=== PATIENT | female | born 1945 | race Caucasian/White ===

== ENCOUNTER → 2016-10-14 | Outpatient (CLI) | payer OTHER ==
[~2016-10-14] MED LIST: ACET-1138 PO; ASPEC325 PO; CLB100 PO; CLR10 PO; DLD2 PO; HYDR12.524 PO; OMEP20CA9 PO; SIMV10TA2 PO
--- NOTE | 2016-10-14 14:17 | MAMMOGRAPHY REPORT ---
BILATERAL DIGITAL SCREENING MAMMOGRAM WITH CAD: 10/14/2016 CLINICAL HISTORY: Routine screening. Patient has no complaints. TECHNIQUE: Current study was also evaluated with a Computer Aided Detection (CAD) system. Bilatera l CC and MLO views were obtained. COMPARISON: Comparison is made to exams dated: 07/30/2015 mammogram, 10/16/2012 mammogram, 01/10/2014 mammogram, 06/23/2011 mammogram, 04/30/2010 mammogram, and 04/27/2010 mammogram - [facility] enter. BREAST COMPOSITION: The tissue of both breasts is heterogeneously dense, which may obscure small ma sses. FINDINGS: No suspicious masses, calcifications, or areas of architectural distortion are noted in e ither breast. There has been no significant interval change compared to prior exams. Bilateral tori gn appearing calcifications are not significantly changed. Asymmetry in the left breast middle dept h on the cc view posterior to the nipple is stable dating back to at least the 2007 exam. IMPRESSION: ACR BI-RADS CATEGORY 2: BENIGN There is no mammographic evidence of malignancy. A 1 year screening mammogram is recommended. The p atient will receive written notification of the results. Approximately 10% of breast cancers are not detected with mammography. A negative mammographic repor t should not delay biopsy if a clinically suggestive mass is present. Rebeca Galaviz M.D. /:10/14/2016 13:53:35 Sql Data Analyst: Katt HINSON)(Reina), [facility] letter sent: Normal 1/2 BI-RADS Code: ACR BI-RADS Category 2: Benign
== END | disposition home or self-care (01) ==
LOC: C.MAMM 09:27
PROVIDERS: ATTEND Family Medicine
DX: Z12.31 Encounter for screening mammogram for malignant neoplasm of breast (principal)

== ENCOUNTER → 2017-10-05 | Day surgery (SDC) | payer OTHER ==
[2017-08-30 16:07] VITALS: Ht 165.1 cm; Wt 90.9 kg
[2017-09-05 10:05] LABS: BASO % 0.5 %; BASO ABS # 0.03 K/uL (0-0.2); EOS % 5.4 %; EOS ABS # 0.34 K/uL (0-0.5); HEMATOCRIT 38.5 % (37-47); HEMOGLOBIN 12.5 g/dL (12.0-16.0); IG# 0.01 K/uL (0.00-0.02); LYMPH % 44.5 %; LYMPH ABS # 2.81 K/uL (1.2-3.4); MEAN CELL VOLUME 97.5 fL (80-100); MEAN CORPUSCULAR HEMOGLOBIN 31.6 pg (25-34); MEAN CORPUSCULAR HGB CONC 32.5 g/dl (32-36); MEAN PLATELET VOLUME 9.4 fL (7.4-10.4); MONO % 7.9 %; NEUT % 41.5 %; NEUT ABS # 2.62 K/uL (1.4-6.5); PLATELET COUNT 292 K/uL (130-400); RED CELL DISTRIBUTION WIDTH CV 14.7 % (11.5-14.5); RED CELL DISTRIBUTION WIDTH SD 52.5 fL (36.4-46.3); WHITE BLOOD COUNT 6.31 K/uL (4.8-10.8)
[2017-09-05 10:39] LABS: CALCIUM 9.1 mg/dl (8.5-10.1); CREATININE 0.8 mg/dl (0.60-1.20); POTASSIUM 3.4 mmol/L (3.5-5.1)
[~2017-10-05] VITALS: Ht 165.1 cm; Wt 90.9 kg
[~2017-10-05] MED LIST changes: -ACET-1138 PO; -ASPEC325 PO; +ASPI81TA28 PO; +ATROPINE SULFATE 0.1 MG/ML 5ML SYR IV PRN; +BUPIVACAINE 0.5 % 5 MG/1 ML PF 10ML VIAL ONE; +BUPIVACAINE/EPINEPHRINE 0.5% MPF 1:200,000 30 ML VIAL ONE; +CEFAZOLIN 2000MG IV PUSH 10 ML IV SCH; +CEFAZOLIN SOD 1 GM VIAL ONE; +CEFAZOLIN SOD 1000MG/5 ML IV PUSH IV ONE; -CLB100 PO; +CLB200 PO; +DIPH-437 PO; -DLD2 PO; +EpHEDrine SULFATE INJ 50 MG/ML AMP IV PRN; +FENTANYL CITRATE INJ 50 MCG/1 ML 2 ML VIAL IV PRN; +FENTANYL CITRATE INJ 50 MCG/1 ML 2 ML VIAL ONE; +HYDR-5688 PO; -HYDR12.524 PO; +HYDR25TA4 PO; +HYDROCODONE/ACETAMOPHEN 5/325MG TAB PO PRN; +KETO10TA PO; +LACTATED RINGER'S 1000ML 1,000 ML IV SCH; +LIDOCAINE HCL 2% 2 ML VIAL (20MG/ML) ONE; +LIDOCAINE HCL 2% LOCAL 20 ML VIAL ONE; +MISCTAB78 PO; +MULT-859 PO; +ONDANSETRON INJ 2 MG/ML 2 ML VIAL IV PRN; +ONDANSETRON INJ 2 MG/ML 2 ML VIAL ONE; +PROPOFOL IV EMULSION 10 MG/ML 20 ML VIAL IV ONE; +SODIUM CHLORIDE 0.9% 1000ML 1,000 ML IV SCH
--- NOTE | 2017-10-05 06:56 | History & Physical Bridge - SC ---
H&P Re-Evaluation Bridge Note: I have examined the patient, reviewed the History & Physical and in the interval since the performance of the History & Physical I have noted the following changes of clinical significance: No changes noted
--- NOTE | 2017-10-05 09:13 | [facility] Post Operative Brief Note ---
Immediate Operative Summary Operative Date Oct 05, 2017. Pre-Operative Diagnosis Right Ulnar Neuropathy, Right Carpal Tunnel Syndrome Post-Operative Diagnosis Same Procedure(s) Performed Right Ulnar Nerve Transposition With Right Carpal Tunnel Release Surgeon Dr. Leo Row Boss Hoeing Surgeon(s) Keke Peraza PA-C Estimated Blood Loss 10ML Findings Right Cubital Tunnel Syndrome Right Carpal Tunnel Syndrome Specimens None Anesthesia General Complication(s) None Disposition Recovery Room / PACU
--- NOTE | 2017-10-05 09:20 | Discharge Instructions-SurgCtr ---
Discharge Instructions Date of Service Oct 05, 2017. Visit Reason for Visit: Compression Neuropathy Of Upper Limb;Pre-Op Discharge Discharge Diagnosis / Problem: right carpal tunnel syndrome and cubital tunnel syndrome Discharge Goals Goal(s): Decrease discomfort, Improve function, Therapeutic intervention Medications Restart Stopped Medication(s): Stop celebrex while taking toradol. May restart celebrex when toradol is finished Activity Recommendations Activity Limitations: per Instructions/Follow-up section Anesthesia . Post Anesthesia Instructions: If you have had General Anesthesia or IV Sedation: * Do not drive today. * Resume driving when surgeon permits. * Do not make important decisions or sign legal documents today. * Call surgeon for: 1. Temperature elevations greater than 101 degrees F. 2. Uncontrollable pain. 3. Excessive bleeding. 4. Persistent nausea and vomiting. 5. Medication intolerance (nausea, vomiting or rash). * For nausea and vomiting use only clear liquids such as: tea, soda, bouillon until nausea subsides, then gradually increase diet as tolerated. * If you have any concerns or questions, call your surgeon's office. If physician is unavailable and it is an emergency, call 911 or go to the nearest emergency room. . Instructions / Follow-Up Instructions / Follow-Up MEDICATIONS: * Resume previous medications unless instructed otherwise by your surgeon. * Always take pain medication on a full stomach or with food to avoid upset stomach. * Do not drink alcohol or drive while taking narcotics. * Tylenol may be taken if narcotic not needed. SPECIAL CARE INSTRUCTIONS: __ None _x_ Keep extremity elevated and iced x 48 hours; apply ice 20-30 minutes 8-10 times/day. May remove at night. _x_ Sling __24 hrs/day __ Remove at night __ Shoulder Immobilizer __ 24 hrs/day __ Remove at night x__ Dressing _x_ Maintain until seen in office, may shower with plastic over site __ Remove dressings in 24-48 hours and then may shower __ Cover incisions with band-aids after showering __ Do not remove steri-strips Call physician if chills or temperature rises above 102 degrees or pain unrelieved by prescribed pain medications at . . follow up in 2 weeks Diet Recommendations Home Diet: resume previous diet Procedures Procedures Performed: Right Ulnar Nerve Transposition With Right Carpal Tunnel Release Pending Studies Studies pending at discharge: no Medical Emergencies . Who to Call and When: Medical Emergencies: If at any time you feel your situation is an emergency, please call 911 immediately. . Non-Emergent Contact Non-Emergency issues call your: Surgeon . . "Provider Documentation" section prepared by Gregory Peraza. .
--- NOTE | 2017-10-05 09:40 | OPERATIVE REPORT ---
DATE OF OPERATION: 10/05/2017 SURGEON: Steve Leo MD. SVP OPERATIONS: KEILY Nickerson PREOPERATIVE DIAGNOSES: 1. Right cubital tunnel syndrome. 2. Right carpal tunnel syndrome. POSTOPERATIVE DIAGNOSES: Same. PROCEDURE PERFORMED: 1. Right subcutaneous ulnar nerve transposition. 2. Right carpal tunnel release. COMPLICATIONS: None. ESTIMATED BLOOD LOSS: 10 mL. ANESTHESIA: General. SPECIMENS: None. OPERATIVE INDICATIONS: The patient is a 72-year-old female who has been bothered by several months of right hand pain, discomfort and numbness and decreased function. This all dates back to when she was catching some type of a fish on a trip. She was treated conservatively without adequate relief. Her symptoms continued to gradually progress. She had nerve studies which suggested cubital tunnel syndrome as well as some carpal tunnel syndrome. The patient failed conservative treatment and elected to proceed with surgical treatment. Most of her symptoms are ulnar nerve related. Based on her nerve studies and difficulty localizing this, we did the ulnar nerve transposition and also proceed with her carpal tunnel release knowing that would also increase the dimensions of Guyon's canal was well. OPERATIVE PROCEDURE: The patient taken to the operating room, identified and placed on the operating table in supine position. All contact areas were appropriately padded. IV antibiotics were provided by anesthesia team. A right arm tourniquet was placed. The right upper extremity was then prepped and draped in the usual sterile fashion. The right arm was elevated and exsanguinated with Esmarch and tourniquet was placed at 250 mmHg. Attention was first drawn to the carpal tunnel release. A 2.5 cm incision was made in the palm just ulnar to the palmaris longus tendon. Blunt dissection was carried through the subcutaneous tissues down to the level of the palmar fascia. The palmar fascia was incised longitudinally in line with skin incision. The underlying transverse carpal ligament was identified. It was cleaned of all soft tissues. It was transected distally with use of a [place] blade knife and then bluntly spread. Attention was then drawn proximally. Blunt dissection was carried out above and below the ligament proximally. The ligament was then transected for a minimum distance of 3 cm proximal to the wrist flexion crease. The ligament was bluntly spread and found to be completely released. I then injected with about 10 mL of 0.5% Marcaine with epinephrine. The tourniquet was let down for a tourniquet time of 6 minutes. Hemostasis was assured with use of electrocautery. The wound was once again irrigated. The skin was closed with 5-0 nylon suture in a horizontal mattress fashion. Attention was then drawn to the elbow. The right arm was elevated and exsanguinated with Esmarch and tourniquet was placed at 250 mmHg. A medial approach to the elbow was then performed through a curvilinear incision centered over the cubital tunnel. Sharp dissection was carried out through the subcutaneous tissue directly down to the fascia. Full thickness flaps were elevated over the flexor pronator mass. Great care was taken to protect the medial antebrachial cutaneous nerve during the exposure. The ulnar nerve was identified proximal to the cubital tunnel. It was dissected out a minimum distance of 5 cm distally and 10 cm proximally. The intermuscular septum was resected. A fascial flap was then developed from the flexor pronator mass and hinged off the medial epicondyle. The nerve was transposed anteriorly. The fascial flap was then sewn to the subcutaneous tissues about 2 cm anterior to the medial epicondyle. The cubital tunnel fascia itself was then closed with 2-0 Vicryl suture in a [id number] fashion. I then injected locally with 20 mL of 0.5% Marcaine with epinephrine. I irrigated the wound extensively. The tourniquet was then let down for a tourniquet time 20 minutes. Hemostasis was assured with electrocautery. The wound was once again irrigated. The subcutaneous tissues were then closed with a combination of 2-0 and 3-0 Vicryl suture in a buried interrupted fashion. Skin was closed with a combination of 3-0 nylon and 3-0 Prolene suture in a horizontal mattress fashion. The arm was then cleaned, dried and a sterile dressing with Xeroform, 4 x 4s, sterile cast padding and a well-padded posterior splint and a sling were applied. The patient then brought out of general anesthesia and transferred to the recovery room in stable condition. The patient tolerated the procedure without complications. All needle and sponge counts were correct at the end of the operation. I attest to the content of the Intraoperative Record and any orders documented therein. Any exceptions are noted below. DESTINI
[2017-10-05 10:03] VITALS: TEMP 36.2
--- NOTE | 2017-10-05 10:35 | Anesthesiology Progress Note ---
Anesthesia Post Op Note Date & Time Oct 05, 2017 at 10:35 Vital Signs Pain Intensity: 5.0 Vital Signs Past 12 Hours Date Time Temp Pulse Resp B/P (MAP) Pulse Ox O2 Delivery O2 Flow Rate FiO2 10/05/17 10:03 36.2 91 18 143/86 (105) 93 Room Air 10/05/17 09:56 87 16 90 10/05/17 09:56 88 16 10/05/17 09:55 144/83 10/05/17 09:54 36.9 95 Room Air 10/05/17 09:51 88 12 10/05/17 09:51 88 12 92 10/05/17 09:50 144/84 10/05/17 09:48 90 16 95 10/05/17 09:48 91 16 10/05/17 09:45 145/87 10/05/17 09:43 91 17 10/05/17 09:43 91 17 94 10/05/17 09:40 140/87 10/05/17 09:38 92 19 97 10/05/17 09:38 93 19 10/05/17 09:37 93 23 96 10/05/17 09:37 93 23 10/05/17 09:35 147/97 10/05/17 09:32 90 17 10/05/17 09:32 91 17 100 10/05/17 09:30 138/91 10/05/17 09:27 91 16 10/05/17 09:27 91 16 100 10/05/17 09:26 147/85 10/05/17 09:25 131/115 10/05/17 09:24 90 12 100 10/05/17 09:24 91 12 10/05/17 09:20 141/86 10/05/17 09:19 92 16 99 10/05/17 09:19 92 16 10/05/17 09:15 140/83 10/05/17 09:14 99 17 10/05/17 09:14 99 17 141/78 98 10/05/17 09:14 36.7 100 16 141/78 97 Mask 8 10/05/17 06:35 36.6 88 18 132/75 (94) 95 Room Air Notes Mental Status: alert / awake / arousable, participated in evaluation Pt Amnestic to Procedure: Yes Nausea / Vomiting: adequately controlled Pain: adequately controlled Airway Patency, RR, SpO2: stable & adequate BP & HR: stable & adequate Hydration State: stable & adequate Anesthetic Complications: no major complications apparent
[2017-10-05 10:38] VITALS: BP 116/70; PULSE 88; O2SAT 95
== END | disposition home or self-care (01) ==
LOC: X.SURG 06:21
PROVIDERS: ATTEND Orthopaedic Surgery Sports Medicine
DX: G56.01 Carpal tunnel syndrome, right upper limb (principal); G56.21 Lesion of ulnar nerve, right upper limb; I10 Essential (primary) hypertension; G62.9 Polyneuropathy, unspecified; Z79.899 Other long term (current) drug therapy; Z79.82 Long term (current) use of aspirin

== ENCOUNTER → 2017-11-23 | Outpatient (CLI) | payer OTHER ==
[~2017-11-23] MED LIST changes: -ATROPINE SULFATE 0.1 MG/ML 5ML SYR IV PRN; -BUPIVACAINE 0.5 % 5 MG/1 ML PF 10ML VIAL ONE; -BUPIVACAINE/EPINEPHRINE 0.5% MPF 1:200,000 30 ML VIAL ONE; -CEFAZOLIN 2000MG IV PUSH 10 ML IV SCH; -CEFAZOLIN SOD 1 GM VIAL ONE; -CEFAZOLIN SOD 1000MG/5 ML IV PUSH IV ONE; -CLB200 PO; -DIPH-437 PO; -EpHEDrine SULFATE INJ 50 MG/ML AMP IV PRN; -FENTANYL CITRATE INJ 50 MCG/1 ML 2 ML VIAL IV PRN; -FENTANYL CITRATE INJ 50 MCG/1 ML 2 ML VIAL ONE; -HYDROCODONE/ACETAMOPHEN 5/325MG TAB PO PRN; -KETO10TA PO; -LACTATED RINGER'S 1000ML 1,000 ML IV SCH; -LIDOCAINE HCL 2% 2 ML VIAL (20MG/ML) ONE; -LIDOCAINE HCL 2% LOCAL 20 ML VIAL ONE; -ONDANSETRON INJ 2 MG/ML 2 ML VIAL IV PRN; -ONDANSETRON INJ 2 MG/ML 2 ML VIAL ONE; -PROPOFOL IV EMULSION 10 MG/ML 20 ML VIAL IV ONE; -SODIUM CHLORIDE 0.9% 1000ML 1,000 ML IV SCH
--- NOTE | 2017-11-23 15:55 | MAMMOGRAPHY REPORT ---
BILATERAL DIGITAL SCREENING MAMMOGRAM TOMOSYNTHESIS WITH CAD: 11/23/2017 CLINICAL HISTORY: Routine screening. TECHNIQUE: Breast tomosynthesis in addition to standard 2D mammography was performed. Current study was also evaluated with a Computer Aided Detection (CAD) system. COMPARISON: Comparison is made to exams dated: 10/14/2016 mammogram, 07/30/2015 mammogram, 01/10/2014 m ammogram, 10/16/2012 mammogram, 06/23/2011 mammogram, and 04/27/2010 mammogram - [facility] nter. BREAST COMPOSITION: The tissue of both breasts is heterogeneously dense, which may obscure small mas ses. FINDINGS: There is stable asymmetry in the middle one third of the left breast along the posterior n ipple line on the CC view, and mild vascular calcifications bilaterally. No suspicious mass, archite ctural distortion or cluster of microcalcifications is seen. IMPRESSION: ACR BI-RADS CATEGORY 1: NEGATIVE There is no mammographic evidence of malignancy. A 1 year screening mammogram is recommended. The pa tient will receive written notification of the results. Approximately 10% of breast cancers are not detected with mammography. A negative mammographic report should not delay biopsy if a clinically suggestive mass is present. Sravanthi Shin M.D. ay/:11/23/2017 13:19:01 Test Kitchen Home Economist: Katt SANCHEZ(Mark)(M), [facility] letter sent: Normal 1/2 BI-RADS Code: ACR BI-RADS Category 1: Negative
== END | disposition home or self-care (01) ==
LOC: C.MAMM 12:14
PROVIDERS: ATTEND Family Medicine
DX: Z12.31 Encounter for screening mammogram for malignant neoplasm of breast (principal)

== ENCOUNTER 2019-11-26 06:25 | Observation (INO) ==
--- NOTE | 2019-11-07 12:37 | PAT Medication Instructions ---
Medication Instructions Date of Service November 07, 2019 Home Medications aspirin [Aspir-81] 81 mg PO QAM calcium carbonate [Calcium 500] 1,000 mg PO QAM celecoxib [Celebrex] 200 mg PO QPM cholecalciferol (vitamin D3) [Vitamin D3] 2,000 unit PO DAILY cyanocobalamin (vitamin B-12) [Vitamin B-12] 3,000 mcg PO DAILY diphenhydramine-acetaminophen [Tylenol PM Extra Strength] 1 tab PO HS PRN glucosamine-chondroitin [Osteo Bi-Flex] 2 tab PO QAM hydrochlorothiazide 25 mg PO QAM omeprazole 20 mg PO QAM simvastatin 10 mg PO QPM ASK your surgeon for instructions celecoxib [Celebrex] 200 mg PO QPM ASK your prescriber and surgeon aspirin [Aspir-81] 81 mg PO QAM STOP taking 2 weeks before surgery (or as soon as possible if surgery is within 2 weeks) glucosamine-chondroitin [Osteo Bi-Flex] 2 tab PO QAM DO NOT take the morning of surgery calcium carbonate [Calcium 500] 1,000 mg PO QAM cholecalciferol (vitamin D3) [Vitamin D3] 2,000 unit PO DAILY cyanocobalamin (vitamin B-12) [Vitamin B-12] 3,000 mcg PO DAILY hydrochlorothiazide 25 mg PO QAM Take morning of surgery With a small sip of water, OTHERWISE NOTHING TO EAT OR DRINK AFTER MIDNIGHT: omeprazole 20 mg PO QAM Take evening before surgery diphenhydramine-acetaminophen [Tylenol PM Extra Strength] 1 tab PO HS PRN (if needed) simvastatin 10 mg PO QPM Other Notes If you have any questions please call us at [phone] or [phone] or [phone] or [phone]
--- NOTE | 2019-11-08 10:59 | Anesthesiology Consultation ---
Date of Service November 08, 2019 Assessment & Plan (1) Encounter for pre-operative examination: PATIENT GOES BY "SABRINA" Chart Review Chart Review: Acceptable Risk for Surgery and Patient seen in Pre Admission Testing Teaching & Discussion Instructed NPO after midnight before surgery, except medications with 15 cc of water. Medication instructions provided according to the PAT guidelines. History Surgery Operation Date: 11/26/19 07:30 Proposed Procedures p Right Reverse Total Shoulder Arthroplasty - Dorian Trejo, Height/Weight Height: 5 ft 5 in Weight: 86.9 kg Allergies Allergy/AdvReac Type Severity Reaction Status Date / Time adhesive AdvReac Unknown BANDAIDS->SKIN Verified 11/06/19 13:44 SORENESS morphine AdvReac Unknown sick in Verified 11/08/19 10:54 stomach, feels funny oxycodone AdvReac Unknown N&V Verified 11/06/19 13:44 Medications Home Medications Medication Instructions Recorded Confirmed Last Taken aspirin [Aspir-81] 81 mg PO QAM 11/06/19 11/06/19 Unknown calcium carbonate [Calcium 500] 1,000 mg PO QAM 11/06/19 11/06/19 Unknown celecoxib [Celebrex] 200 mg PO QPM 11/06/19 11/06/19 Unknown cholecalciferol (vitamin D3) 2,000 unit PO DAILY 11/06/19 11/06/19 Unknown [Vitamin D3] cyanocobalamin (vitamin B-12) 3,000 mcg PO DAILY 11/06/19 11/06/19 Unknown [Vitamin B-12] diphenhydramine-acetaminophen 1 tab PO HS PRN 11/06/19 11/06/19 Unknown [Tylenol PM Extra Strength] glucosamine-chondroitin [Osteo 2 tab PO QAM 11/06/19 11/06/19 Unknown Bi-Flex] hydrochlorothiazide 25 mg PO QAM 11/06/19 11/06/19 Unknown omeprazole 20 mg PO QAM 11/06/19 11/06/19 Unknown simvastatin 10 mg PO QPM 11/06/19 11/06/19 Unknown Past Medical History Medical History (Updated 11/08/19 @ 15:34 by Amandeep Espinal) Acid reflux Hyperlipidemia Osteoarthritis Tennis elbow R - INJECTION 10/29/19. SURGEON'S OFFICE AWARE. Exercise / Class Metabolic Activity II 4-5 Yardwork/Stairs/Walk up hill (Denies CP or SOB with activity/1FOS; takes care of a 2yo daily) Past Family History Family History (Updated 11/06/19 @ 13:55 by Salas Shah RN) Grandfather Family history of esophageal cancer Past Surgical History Surgical History (Updated 11/08/19 @ 10:56 by Amandeep Espinal) H/O vein stripping History of cholecystectomy History of colonoscopy History of elbow surgery R & CARPAL TUNNEL SURGERY R HAND (SAME SURGERY) History of foot surgery R (PINS) History of total left knee replacement History of total replacement of left shoulder joint History of total right hip replacement History of total right knee replacement History of tubal ligation Past Anesthesia History No Hx of Anesthesia Complications and No Family Hx of Anesthesia Complications History of PONV No Hx of PONV and No Hx of Motion Sickness Social History Smoking Status: Never smoker Do You Dip or Chew Tobacco: No Hx Alcohol Use: Yes alcohol intake frequency: holidays/special occasions only Hx Substance Use: No substance use type: does not use Review of Systems Pt denies any recent chest pain, shortness of breath, palpitations, cough, fever or URI. Physical Exam Vital Signs BP: 126/77 P: 79bpm SPO2: 98% RA T: 97.6 F R: 16 ENMT Mouth: no dental restorations, no chipped teeth and no loose teeth Thyromental Distance: < 3.5 Finger Breadths (3) Mallampati Class: III Neck normal visual inspection; neck extension not limited Respiratory normal respiratory effort Auscultation: lungs clear to auscultation bilaterally Cardiovascular Rate/Rhythm: regular rate and regular rhythm Heart Sounds: + murmur (I/ systolic) Testing Laboratory Results 11/08/19 11:10 PT 10.6 Seconds (9.0-12.0) 11/08/19 11:10 INR 1.0 (0.9-1.1) 11/08/19 11:10 APTT 25.4 Seconds (21.0-31.0) 11/08/19 11:10 Blood Type A Positive 11/08/19 11:10 Antibody Screen NEGATIVE 11/08/19 11:10 Laboratory Tests 11/08/19 11:10 Sodium 138 Potassium 3.4 L Chloride 103 Carbon Dioxide 29 BUN 15 Creatinine 0.68 Glucose 95 Electrocardiogram Date: 11/08/19 Findings: + NSR @ (78) and + RBBB Compared with EKG of 09/05/2017, PVCs are no longer present. Chest X-Ray Date: 11/08/19 Findings: + NAD Hiatal hernia. Stress Test Date: 09/06/13 Type: exercise Resting EF: 55-59% Negative for ischemia. Below average exercise capacity. Normal left ventricular wall motion. No significant valvular disease.
[2019-11-08 11:50] LABS: Basophils # (auto) 0.04 K/uL (0-0.2); Basophils % (auto) 0.5 %; Eosinophils % (auto) 4.1 %; Hematocrit (blood only) 40.4 % (37-47); Hemoglobin 13.2 g/dL (12.0-16.0); Immature Granulocytes # (auto) 0.01 K/uL (0.00-0.02); Immature Granulocytes % (auto) 0.1 %; Lymphocytes # (auto) 3.09 K/uL (1.2-3.4); Lymphocytes % (auto) 42.3 %; Mean Corpuscular Hemoglobin 32.4 pg (25-34); Mean Corpuscular Hgb Conc 32.7 g/dL (32-36); Mean Corpuscular Volume 99.3 fL (80-100); Mean Platelet Volume 9.9 fL (7.4-10.4); Monocytes # (auto) 0.57 K/uL (0.11-0.59); Monocytes % (auto) 7.8 %; Neutrophils # (auto) 3.29 K/uL (1.4-6.5); Neutrophils % (auto) 45.2 %; Platelet Count 326 K/uL (130-400); RDW Coefficient of Variation 14.6 % (11.5-14.5); Red Blood Count 4.07 M/uL (4.2-5.4)
--- NOTE | 2019-11-08 11:52 | XRay Report ---
XR chest Pre-admission PA/Lat HISTORY: 74 years-old Female pat preoperative exam. No acute chest complaints COMPARISON: Chest radiographs 07/15/2016 TECHNIQUE: PA and lateral views of the chest FINDINGS: Cardiac silhouette is normal in size. Calcific plaque of the thoracic aortic arch. No pneumothorax, p leural effusion or overt pulmonary edema. Mild eventration of the right hemidiaphragm. Small to moder ate hiatal hernia. Degenerative changes of the spine and right shoulder. Left shoulder total joint ar throplasty. Surgical clips project over the upper abdomen. Postoperative changes of the right proxima l humerus. Remote upper lumbar compression deformity redemonstrated. IMPRESSION: 1. No acute process. 2. Hiatal hernia. ACT 112: Negative or not required by law. The above report was generated using voice recognition software. It may contain grammatical, syntax o r spelling errors. Electronically signed by: Evelio Neil M.D. 11/08/2019 11:51 AM
[2019-11-08 12:05] LABS: Partial Thromboplastin Ratio 0.9; Partial Thromboplastin Time 25.4 Seconds (21.0-31.0); Prothrombin Time 10.6 Seconds (9.0-12.0)
--- NOTE | 2019-11-08 14:40 | Electrocardiogram Report ---
Test Reason : Blood Pressure : / mmHG Vent. Rate : 078 BPM Atrial Rate : 078 BPM P-R Int : 178 ms QRS Dur : 148 ms QT Int : 438 ms P-R-T Axes : 067 106 024 degrees QTc Int : 499 ms Normal sinus rhythm Right bundle branch block Abnormal ECG When compared with ECG of 05-SEP-2017 09:52, Premature ventricular complexes are no longer Present Confirmed by Saleem Guerrier ([id number]) on 11/08/2019 2:40:45 PM Referred By: Dorian Trejo Confirmed By:Saleem Guerrier
--- NOTE | 2019-11-22 09:22 | History & Physical Report ---
Date of Service November 22, 2019 Assessment & Plan (1) Osteoarthritis, shoulder: We will proceed with a right reverse shoulder arthroplasty. Postoperatively she will be placed in a sling and kept overnight in the hospital for postoperative medical management. She plans to use [facility] and [place] upon discharge. Present on Admission?: Yes History of Present Illness Chief Complaint: Primary osteoarthritis of the right shoulder Primary Care Provider: Chris Garcia MD Deena is a pleasant 74-year-old female who has been dealing with chronic increasing right shoulder pain. She has a history of a rotator cuff repair done in the past. Unfortunately she is gone on to develop advanced arthritis of the right shoulder. She has constant crepitus and weakness of the right shoulder. I did a left total shoulder arthroplasty on her in 2012 and she did well with that. Unfortunately she is having a lot of right shoulder pain. Due to the rotator cuff repair she had in the past as well as the wear of her glenoid, she has elected to proceed with a reverse right shoulder arthroplasty. Allergies Allergy/AdvReac Type Severity Reaction Status Date / Time adhesive AdvReac Unknown BANDAIDS->SKIN Verified 11/06/19 13:44 SORENESS morphine AdvReac Unknown sick in Verified 11/08/19 10:54 stomach, feels funny oxycodone AdvReac Unknown N&V Verified 11/06/19 13:44 Home Medications Home Medications Medication Instructions Recorded Confirmed Type aspirin [Aspir-81] 81 mg PO QAM 11/06/19 11/06/19 History calcium carbonate [Calcium 500] 1,000 mg PO QAM 11/06/19 11/06/19 History celecoxib [Celebrex] 200 mg PO QPM 11/06/19 11/06/19 History cholecalciferol (vitamin D3) 2,000 unit PO DAILY 11/06/19 11/06/19 History [Vitamin D3] cyanocobalamin (vitamin B-12) 3,000 mcg PO DAILY 11/06/19 11/06/19 History [Vitamin B-12] diphenhydramine-acetaminophen 1 tab PO HS PRN 11/06/19 11/06/19 History [Tylenol PM Extra Strength] glucosamine-chondroitin [Osteo 2 tab PO QAM 11/06/19 11/06/19 History Bi-Flex] hydrochlorothiazide 25 mg PO QAM 11/06/19 11/06/19 History omeprazole 20 mg PO QAM 11/06/19 11/06/19 History simvastatin 10 mg PO QPM 11/06/19 11/06/19 History Past Med/Surg History Medical History Acid reflux Hyperlipidemia Osteoarthritis Tennis elbow R - INJECTION 10/29/19. SURGEON'S OFFICE AWARE. Surgical History H/O vein stripping History of cholecystectomy History of colonoscopy History of elbow surgery R & CARPAL TUNNEL SURGERY R HAND (SAME SURGERY) History of foot surgery R (PINS) History of total left knee replacement History of total replacement of left shoulder joint History of total right hip replacement History of total right knee replacement History of tubal ligation Family History Grandfather Family history of esophageal cancer Social History Preferred Language: Yi Communication Ability: Effective First Mate Required: No Beliefs That Will Affect Care: None Current Living Situation: Spouse Feels Safe at Home: Yes Smoking Status: Never smoker Hx Alcohol Use: Yes Hx Substance Use: No Review of Systems All systems reviewed & are unremarkable except as noted in HPI & below Physical Exam Constitutional: WD/WN, vitals as above Eyes: PERRL, conjunctivae normal, anicteric sclerae ENMT: external ear and nose normal, oropharynx normal Neck: trachea midline, no thyromegaly Respiratory: normal respiratory effort Cardiovascular: RRR, no murmur, no edema Gastrointestinal (Abdomen): normal bowel sounds, soft, nontender, no hepatosplenomegaly Musculoskeletal: Physical examination of the right shoulder reveals decreased range of motion and crepitis throughout. There is good strength with full can testing and external rotation. There is tenderness palpation along the anterior glenohumeral joint line. The right upper extremity is neurovascularly intact. Psychiatric: A+Ox3, euthymic affect Results & Data Diagnostic Findings Radiographs of the right shoulder show osteoarthritis of the glenohumeral joint. There is joint space narrowing, osteophyte formation, and [id number] articulation.
[~2019-11-26 06:25] MED LIST changes: +ACETAMINOPHEN 500 MG TAB PO SCH; -ASPI81TA28 PO; +CEFAZOLIN 2000MG 2,000 MG/15 ML SYR IV SCH; -CLR10 PO; +FAMOTIDINE 20 MG TAB PO SCH; +GABAPENTIN 300 MG CAP PO SCH; -HYDR-5688 PO; -HYDR25TA4 PO; +LR 15ML/HR IV SCH; +LR 60ML/HR IV SCH; -MISCTAB78 PO; -MULT-859 PO; -OMEP20CA9 PO; +ROPIVACAINE 0.5% HCL/PF 150 MG, BUPIVACAINE 0.5% MPF 30 ML, EPINEPHrine 30MG/30ML (OR U... INSTIL SCH; -SIMV10TA2 PO; +TRANEXAMIC ACID 1,000 MG **IV Intra-op IV SCH; +TRANEXAMIC ACID 1,000 MG **IV Pre-op IV SCH; +dexAMETHasone 4 MG TAB PO SCH
--- NOTE | 2019-11-26 06:45 | History & Physical Bridge Note ---
Date of Service November 26, 2019 History & Physical Bridge Note I have examined the patient, reviewed the History & Physical and in the interval since the performance of the History & Physical I have noted the following changes of clinical significance: no changes noted
[2019-11-26] MEDS ORDERED: BUPIVACAINE 0.5 % 5 MG/1 ML PF 10ML VIAL ONE (07:11)
[2019-11-26] MEDS ORDERED: ONDANSETRON INJ 2 MG/ML 2 ML VIAL ONE (07:44)
[2019-11-26] MEDS ORDERED: LIDOCAINE HCL 2% 2 ML VIAL/AMP(20MG/ML) INFIL ONE (07:44)
[2019-11-26] MEDS ORDERED: DEXAMETHASONE SOD INJ 4 MG/ML VIAL ONE (07:44)
[2019-11-26] MEDS ORDERED: ROCURONIUM BROMIDE 10 MG/ML 5 ML VIAL ONE (07:45)
[2019-11-26] MEDS ORDERED: MIDAZOLAM HCL 1 MG/ML 2ML VIAL ONE (07:45)
[2019-11-26] MEDS ORDERED: PROPOFOL IV EMULSION 10 MG/ML 20 ML VIAL IV ONE (07:45)
[2019-11-26] MEDS ORDERED: fentaNYL citrate 100 MCG/2 ML VIAL ONE (07:45)
[2019-11-26] MEDS ORDERED: fentaNYL citrate 100 MCG/2 ML VIAL IV PRN (07:54)
[2019-11-26] MEDS ORDERED: ATROPINE SULFATE 0.1 MG/ML 10ML SYR IV PRN (07:54)
[2019-11-26] MEDS ORDERED: ONDANSETRON INJ 2 MG/ML 2 ML VIAL IV PRN ×2 (07:54→12:24)
[2019-11-26] MEDS ORDERED: ePHEDrine sulfate 50 MG/ML AMP IV PRN (07:54)
[2019-11-26] MEDS ORDERED: ROPIVACAINE 0.5% HCL/PF 150 MG, BUPIVACAINE 0.5% MPF 30 ML, EPINEPHrine 30MG/30ML (OR U... INSTIL SCH (10:00)
[2019-11-26] MEDS ORDERED: GLYCOPYRROLATE 0.2 MG/ML VIAL ONE (10:15)
[2019-11-26] MEDS ORDERED: NEOSTIGMINE METHYLSULFATE 5 MG/5 ML SYR ONE (10:15)
--- NOTE | 2019-11-26 10:58 | Operative Report ---
PG Post Operative Report Pre & Post Diagnosis Operation Date: 11/26/19 09:05 Pre-Op Diagnosis: RIGHT SHOULDER rotator cuff arthropathy with tendinopathy of the long head of the biceps tendon Post-Op Diagnosis: RIGHT SHOULDER rotator cuff arthropathy with tendinopathy of the long head of the biceps tendon I identified the patient and participated in the time-out.: Yes Procedure Operation Date: 11/26/19 09:05 Actual Procedures p Right Reverse Total Shoulder Arthroplasty with open biceps tenodesis as a separate procedure (modifier 59) (Right) - Dorian Trejo DO Surgeon Dorian Trejo DO Lead Security Officer Dorian Lui PAC Estimated Blood Loss 200 Findings Consistent with Post-Op Diagnosis Specimens Right humeral head Complications none Disposition Disposition: Recovery Room Indications Deena is a pleasant 74-year-old female who presented my office with chronic increasing right shoulder pain. X-rays and clinical examination have been diagnostic for cuff arthropathy of the right shoulder. She has a history of her previous right rotator cuff repair through a large open incision. After failing conservative treatment, she elected proceed with a right reverse shoulder arthroplasty. Description of Procedure A CPT code modifier 59: The long head of the biceps tendon was enlarged and inflamed consistent with tendinopathy. A tenodesis was opted. This was a separate and distinct portion of the procedure. For these reasons, a CPT code modifier 59 will be added to this case. A CPT code modifier 22: The patient had a previous open rotator cuff repair. T here was extensive scar tissue from that previous procedure. Gaffney implants had to be removed as well. The case took about 50% longer than a standard reverse shoulder replacement because of the previous procedure. Implants used: I used a [employer]omet Comprehensive reverse total shoulder arthroplasty system with a size 14 press fit mini humeral stem, a +3 offset humeral tray and a standard humeral bearing, a 25 mm mini baseplate with a 6.5 mm central screw and superior and inferior locking screws, and a size 36 mm eccentric glenosphere. Deena arrived at [facility] for the above procedure. She was seen in the preoperative holding area and the operative extremity was identified and signed. She was given a preoperative antibiotic, TXA, and an interscalene nerve block. She was taken back to the operating room, laid on table in supine position, and put under general anesthesia. She was then put into the beachchair position. The shoulder was then prepped and draped in sterile fashion. A timeout was done and the patient and the operative extremity was properly identified. A deltopectoral approach was used. Dissection was taken down through the fascia and the deltoid was retracted laterally and the conjoined tendon was retracted medially. The anterior shoulder was exposed. The biceps groove was opened up and the biceps tendon was examined extensively. The biceps tendon demonstrated enlargement and inflammatory changes consistent with longstanding inflammation in the context of osteoarthritis and cuff arthropathy. The long head of the biceps tendon was then tenodesed to the upper border of the pectoralis major. This was a separate and distinct portion of the procedure. The subscapularis was then directly released off the lesser tuberosity with a peel technique. The inferior capsule was released and the humeral head was dislocated. A canal finding reamer was sent down the center of the humeral canal. Sequential reaming up to a size 14 reamer was done. Off that reamer, a proximal humeral resection guide was placed. The proximal humerus was resected at 135 of inclination and 25 of retroversion. Osteophytes were then removed and the glenoid was exposed. Time was spent doing a complete capsular and labral release. The glenoid guide was then placed in the inferior aspect of the glenoid. A 3.2 mm Steinmann pin was then placed into the glenoid vault at 10 of inclination. The glenoid baseplate was then reamed. The final size 25 mm mini baseplate was then impacted in the place. A 6.5 mm central screw was then placed followed by superior and inferior locking screws. A 36 mm eccentric glenosphere was then impacted into place. Surrounding soft tissues were then injected with 100 cc an orthopedic pain control cocktail. The proximal humerus was then exposed. Sequential broaching of the humerus up to a size 14 broach was done. Off that broach a +3 offset humeral tray was trialed. The shoulder was then reduced, brought through a full range of motion, and felt to be stable. The shoulder was then dislocated and the broach was removed. The final size 14 mini press-fit humeral stem was then impacted into place. A standard humeral bearing was then snapped onto a +3 offset humeral tray. The humeral tray was then impacted onto the humeral stem. The shoulder was once again reduced, brought through a full range of motion, and felt to be stable. The subscapularis was then tenodesed back to the lesser tuberosity with transosseous FiberWire sutures and side to side sutures with the arm in 45 of external rotation. A dilute betadyne lavage was then done for 3 minutes. The joint was then irrigated with normal saline solution. Hemostasis was obtained. The interval was closed with 2-0 Vicryl suture. The skin was then closed with 2-0 Vicryl and declan. A soft dressing was placed and the arm was rested in a regular arm sling. She was then extubated and transferred to a hospital bed. She taken to the postanesthesia care unit in stable condition. She tolerated the procedure well. Dorian Lui PA-C, was present for the entire procedure. He was critical for patient positioning, prepping, draping, retraction exposure, wound closure and application of sterile dressing. I attest to the content of the Intraoperative Record and any orders documented therein. Any exceptions are noted below.
--- NOTE | 2019-11-26 12:08 | Anesthesiology Progress Note ---
Date of Service November 26, 2019 Anesthesia Post Procedure Vital Signs Vital Signs: Temp Pulse Pulse Resp BP Pulse Ox 11/26/19 11:55 70 19 145/76 H 100 11/26/19 11:45 97.3 F L 79 16 139/79 100 11/26/19 11:35 71 16 140/76 100 11/26/19 11:25 75 16 141/81 H 100 11/26/19 11:17 97.0 F L 81 18 146/80 H 97 11/26/19 09:30 97.3 F L 82 16 152/86 H 99 11/26/19 09:25 97.2 F L 75 16 147/78 H 99 11/26/19 09:15 80 16 148/78 H 99 11/26/19 09:04 86 16 144/84 H 99 11/26/19 06:44 97.9 F 96 H 18 149/78 H 97 Pain Intensity Right Shoulder: Pain Intensity: 0 Transfer of Care Handoff Completed per policy Notes Mental Status: alert / awake / arousable and participated in evaluation Patient Amnestic to Procedure: Yes Nausea / Vomiting: adequately controlled Pain: adequately controlled Airway Patency, RR, SpO2: stable & adequate BP & HR: stable & adequate Hydration State: stable & adequate Anesthetic Complications: no major complications apparent and Pt Satisfied with anesthetic care
[2019-11-26] MEDS ORDERED: MAGNESIUM HYDROXIDE SUSP 30 ML UDC PO PRN (12:24)
[2019-11-26] MEDS ORDERED: bisacodyL 10 MG SUPP PR PRN (12:24)
[2019-11-26] MEDS ORDERED: NALOXONE HCL 0.4 MG/1 ML VIAL/CARP IV PRN (12:24)
[2019-11-26] MEDS ORDERED: METOCLOPRAMIDE HCL INJ 5 MG/ML 2 ML VIAL IV PRN (12:24)
[2019-11-26] MEDS ORDERED: TRAMADOL HCL 50 MG TABLET PO PRN (12:24)
[2019-11-26] MEDS ORDERED: HYDROmorphone INJ 0.5 MG/0.5 ML SYR IV PRN (12:24)
--- NOTE | 2019-11-26 12:33 | XRay Report ---
XR shoulder RT min 2V routine HISTORY: 74 years-old Female Post shoulder surgery right shoulder total joint arthroplasty COMPARISON: Right shoulder radiographs 10/29/2019 TECHNIQUE: 3 views of the right shoulder FINDINGS: Reverse right shoulder total joint arthroplasty demonstrates satisfactory alignment. Expected postsur gical soft tissue swelling and deep tissue air. Overlying skin declan are noted. Findings are sugges tive of prior distal clavicular resection. Right lung base opacities suggest atelectasis. IMPRESSION: Expected postoperative changes related to reverse right shoulder total joint arthroplasty . ACT 112: Negative or not required by law. The above report was generated using voice recognition software. It may contain grammatical, syntax o r spelling errors. Electronically signed by: Evelio Neil M.D. 11/26/2019 12:31 PM
[2019-11-26] MEDS: SODIUM CHLORIDE 0.9% 1000ML 1,000 ML IV SCH ×2 (12:58→22:16)
[2019-11-26] MEDS: ACETAMINOPHEN 500 MG TAB PO SCH ×2 (12:58→20:50)
[2019-11-26] MEDS: KETOROLAC TROMETHAMINE 15 MG/ML VIAL IV SCH ×2 (12:58→17:42)
[2019-11-26] MEDS ORDERED: NURSING DECISION MEDICATION ONE (15:33)
[2019-11-26] MEDS ORDERED: COUGH DROP (SUGAR FREE) LOZ 24 LOZ/1 BOX BUCCAL PRN (15:38)
[2019-11-26] MEDS: CEFAZOLIN 2000MG 2,000 MG/15 ML SYR IV SCH (20:43)
[2019-11-26] MEDS: DOCUSATE SODIUM 100 MG CAP PO SCH (20:43)
[2019-11-26] MEDS ORDERED: SIMVASTATIN 10 MG TAB PO SCH (21:00)
[2019-11-26] MEDS ORDERED: SENNA 8.6 MG TAB PO SCH (21:00)
[2019-11-27] MEDS: KETOROLAC TROMETHAMINE 15 MG/ML VIAL IV SCH ×2 (00:14→04:46)
[2019-11-27] MEDS: ACETAMINOPHEN 500 MG TAB PO SCH (04:46)
[2019-11-27] MEDS: CEFAZOLIN 2000MG 2,000 MG/15 ML SYR IV SCH (04:46)
--- NOTE | 2019-11-27 05:39 | Orthopedic Progress Note ---
Date of Service November 27, 2019 Assessment & Plan (1) History of reverse total replacement of right shoulder joint: Overall she is doing very well. She not having much pain in the right shoulder. She will be seen by physical therapy this morning for ambulation and range of motion exercises. She can be discharged home later today. She will follow-up with orthopedics in 2 weeks. Present on Admission?: Yes Margoth Shaffer was seen and examined at bedside this morning. Overall she is doing very well. She is not having much pain in the right shoulder. She has no complaints. Physical Exam Musculoskeletal: On physical examination of the right shoulder, the dressing is clean and dry. She is wearing her sling as instructed. Her radial, median, and ulnar nerves are checked and intact at the wrist. She still has a little numbness in her thumb. Her axillary nerve was not checked yet. Results & Data ([facility]) Vital Signs (Past 12 Hours) Vital Signs Temp Pulse Resp BP Pulse Ox 11/27/19 03:21 36.6 C 74 18 111/70 93 11/26/19 23:05 36.7 C 87 18 106/64 96 11/26/19 19:31 36.6 C 78 16 114/69 93 Diagnostic Findings Postoperative x-rays of the right shoulder show the prosthesis to be in anatomic alignment without any evidence of fracture, dislocation, or loosening. PG Care Time/CCT Total # of Minutes Spent Total Time Spent with Patient: Total time spent is greater than 50% in coordination of care (as documented) at patient's floor/unit and/or counseling patient: Coding Level of Care Code None Diagnoses History of reverse total replacement of right shoulder joint Z98.890
--- NOTE | 2019-11-27 05:40 | Discharge Summary ---
Date of Service November 27, 2019 Admission HPI Per Admitting Provider Deena is a pleasant 74-year-old female who has been dealing with chronic increasing right shoulder pain. She has a history of a rotator cuff repair done in the past. Unfortunately she is gone on to develop advanced arthritis of the right shoulder. She has constant crepitus and weakness of the right shoulder. I did a left total shoulder arthroplasty on her in 2012 and she did well with that. Unfortunately she is having a lot of right shoulder pain. Due to the rotator cuff repair she had in the past as well as the wear of her glenoid, she has elected to proceed with a reverse right shoulder arthroplasty. Principal Diagnosis Right reverse shoulder arthroplasty Discharge Data Allergies Allergy/AdvReac Type Severity Reaction Status Date / Time adhesive AdvReac Unknown BANDAIDS->SKIN Verified 11/26/19 06:37 SORENESS morphine AdvReac Unknown sick in Verified 11/26/19 06:37 stomach, feels funny oxycodone AdvReac Unknown N&V Verified 11/26/19 06:37 Consultations 11/26/19 12:24 Consult Case Management - Discharge Planning Routine Procedures Performed Operation Date: 11/26/19 09:05 Actual Procedures p Right Reverse Total Shoulder Arthroplasty(Right) - Dorian Trejo DO Ordered Studies 11/26/19 05:00 US - OR guided needle placemen Urgent Hospital Course (1) History of reverse total replacement of right shoulder joint: On November 26, 2019 Deena arrived at [facility] and underwent a right reverse shoulder arthroplasty without complication. She had a general anesthetic and a right interscalene nerve block. Postoperatively she was placed in an arm sling and transferred to the general orthopedic floors. Her hospital course was uneventful. On postop day #1 her H&H was stable and her pain was well controlled. She was able to participate well with physical therapy doing ambulation and range of motion exercises. She was then discharged to home. She will follow-up with orthopedics in 2 weeks. Total Time Total Time Spent Total Time Spent (In Minutes): 20 Discharge Plan Discharge Items Patient Disposition: Home - Home Health Services Reason For Visit: RIGHT SHOULDER DEGERATIVE JOINT DISEASE Discharge Diagnosis: Right reverse shoulder replacement Activity: As commented below Non-emergency contact: Surgeon Call non-emergency contact if: your wound has increased redness and your wound has increased drainage Follow-up/Referrals: Chris Garcia MD [Primary Care Provider] - Diet: Regular Addtl Attending Provider Instructions: Activity and Therapy Recommendations: * If you are using [facility] then therapy will be provided at your home until they feel you have accomplished all of your goals. * If you are using [facility] then Physical Therapy will be provided until they feel you are ready to start Outpatient Physical Therapy. * If you are not using home therapy then Outpatient Physical Therapy should start about 3-5 days from your day of surgery. Therapy will last about 8-12 weeks * Wear your sling for 3 weeks, unless otherwise instructed. You may remove your sling to shower and to dress, but otherwise, you should be in your sling at all times, including while sleeping * The shoulder replacement is very stable and you can use your hand while in the sling * You were shown a series of exercises in the hospital. Do these exercises daily including the exercises you were shown in physical therapy. Medications: * Narcotic You will likely be sent home from the hospital with a prescription for the narcotic pain medication that worked best throughout your stay. * Other medications may be prescribed for specific circumstances. If you have any questions, please call the office at . * Resume previous home medications unless otherwise instructed Dressing Care: Leave the plastic dressing in place for 5 days. After 5 days you may remove the plastic dressing. If the incision is not draining then you may leave the declan open to air. If there is a little bit of drainage or if the declan are getting stuck on your clothing then cover the incision with a dry dressing. The declan will be removed at your 2 week follow-up appointment. Showering: You may shower with the plastic dressing in place. Let the shower spray hit the other shoulder. You can pat the plastic dry. If the dressing becomes wet underneath the plastic then simply remove the dressing. Keep the incision dry until you are 5 days out from the day of surgery. At that time you can shower with the declan exposed. Let the soapy shower water run over the declan and pat them dry. Do not scrub or soak the incision. Things To Watch For: * Drainage from the incision site that occurs more than one week after your surgery. * Increased redness at the incision site. * Fever above 102 degrees Fahrenheit. * Unusual chest pain or shortness of breath. * Call [facility] at with any of the above problems Follow-Up Visit: Follow-up with Dr. Trejo 2-3 weeks after your day of surgery. An appointment was probably scheduled when you signed-up for surgery in the office. If you have any questions call Office Instructions: More detailed instructions as well as Frequently Asked Questions were provided in a folder by our office when you signed-up for surgery. Please review these instructions when you get home. If you have any further questions or concerns, please feel free to call the office at [phone] Pending Studies at Discharge: No Stand-Alone Forms: My [facility] SCL, Smoking Cessation Medications and DC Order Prescriptions: New hydrocodone-acetaminophen [Manson] 5-325 mg tablet 1 tab PO Q6H PRN (Reason: pain) Qty: 30 RF: 0 Continued celecoxib [Celebrex] 200 mg Capsule 200 mg PO QPM RF: 0 simvastatin 10 mg Tablet 10 mg PO QPM RF: 0 cyanocobalamin (vitamin B-12) [Vitamin B-12] 1,000 mcg Tablet 3,000 mcg PO DAILY RF: 0 aspirin [Aspir-81] 81 mg Tablet,Delayed Release (Dr/Ec) 81 mg PO QAM RF: 0 calcium carbonate [Calcium 500] 500 mg calcium (1,250 mg) Tablet 1,000 mg PO QAM RF: 0 omeprazole 20 mg Capsule,Delayed Release(Dr/Ec) 20 mg PO QAM RF: 0 hydrochlorothiazide 25 mg Tablet 25 mg PO QAM RF: 0 diphenhydramine-acetaminophen [Tylenol PM Extra Strength] 25-500 mg Tablet 1 tab PO HS PRN (Reason: Sleep) RF: 0 glucosamine-chondroitin [Osteo Bi-Flex] 250-200 mg Tablet 2 tab PO QAM RF: 0 cholecalciferol (vitamin D3) [Vitamin D3] 2,000 unit Tablet 2,000 unit PO DAILY RF: 0 potassium chloride [K-Tab] 20 mEq Tablet Extended Release 20 meq PO DAILY RF: 0 Discharge Orders: Discharge Order (Routine); Ordered 11/27/19 Ordered By: Dorian Trejo Admission Data Admit Date/Time: 11/26/19 11:17 Attending Provider: Dorian Trejo Admit Provider: Dorian Trejo Primary Care Provider: Chris Garcia Coding Level of Care Code D/C Day Management <30 mins Diagnoses History of reverse total replacement of right shoulder joint Z98.890
[2019-11-27 06:09] LABS: Basophils # (auto) 0.01 K/uL (0-0.2); Basophils % (auto) 0.1 %; Eosinophils # (auto) 0.02 K/uL (0-0.5); Eosinophils % (auto) 0.2 %; Hematocrit (blood only) 32.8 % (37-47); Hemoglobin 10.8 g/dL (12.0-16.0); Immature Granulocytes # (auto) 0.02 K/uL (0.00-0.02); Immature Granulocytes % (auto) 0.2 %; Lymphocytes # (auto) 1.91 K/uL (1.2-3.4); Lymphocytes % (auto) 18.9 %; Mean Corpuscular Hgb Conc 32.9 g/dL (32-36); Mean Corpuscular Volume 100.3 fL (80-100); Mean Platelet Volume 9.3 fL (7.4-10.4); Monocytes # (auto) 0.86 K/uL (0.11-0.59); Monocytes % (auto) 8.5 %; Neutrophils # (auto) 7.26 K/uL (1.4-6.5); Neutrophils % (auto) 72.1 %; Platelet Count 276 K/uL (130-400); RDW Coefficient of Variation 15.2 % (11.5-14.5); RDW Standard Deviation 55.9 fL (36.4-46.3); Red Blood Count 3.27 M/uL (4.2-5.4); White Blood Count 10.08 K/uL (4.8-10.8)
[2019-11-27 06:37] LABS: BUN Creatinine Ratio 31.9 (10-20); Calcium 8.8 mg/dl (8.5-10.1); Creatinine Clr Calc Pharmacy 78.5 ml/min; Est GFR (African American) 99.2; Est GFR (Non-African American) 85.6; Potassium 3.7 mmol/L (3.5-5.1)
[2019-11-27] MEDS ORDERED: dexAMETHasone 4 MG TAB PO SCH (08:00)
--- NOTE | 2019-11-27 08:02 | Anesthesiology Progress Note ---
Date of Service November 27, 2019 Anesthesia Post Procedure Vital Signs Vital Signs: Temp Pulse Pulse Pulse Resp BP Pulse Ox 11/27/19 07:06 36.8 C 80 18 125/72 95 11/27/19 03:21 36.6 C 74 18 111/70 93 11/26/19 23:05 36.7 C 87 18 106/64 96 11/26/19 19:31 36.6 C 78 16 114/69 93 11/26/19 15:14 36.6 C 76 16 114/72 96 11/26/19 14:15 80 18 107/67 95 11/26/19 13:15 77 16 124/77 97 11/26/19 12:43 71 16 128/68 96 11/26/19 12:15 36.5 C 83 14 134/84 97 11/26/19 11:55 70 19 145/76 H 100 11/26/19 11:45 36.3 C L 79 16 139/79 100 11/26/19 11:35 71 16 140/76 100 11/26/19 11:25 75 16 141/81 H 100 11/26/19 11:17 36.1 C L 81 18 146/80 H 97 11/26/19 09:30 36.3 C L 82 16 152/86 H 99 11/26/19 09:25 36.2 C L 75 16 147/78 H 99 11/26/19 09:15 80 16 148/78 H 99 11/26/19 09:04 86 16 144/84 H 99 Pain Intensity Right Shoulder: Pain Intensity: 0 Notes Mental Status: alert / awake / arousable and participated in evaluation Patient Amnestic to Procedure: Yes Nausea / Vomiting: adequately controlled Pain: adequately controlled Airway Patency, RR, SpO2: stable & adequate BP & HR: stable & adequate Hydration State: stable & adequate Anesthetic Complications: no major complications apparent and Pt Satisfied with anesthetic care
[2019-11-27] MEDS: DOCUSATE SODIUM 100 MG CAP PO SCH (08:41)
[2019-11-27] MEDS ORDERED: hydroCHLOROthiazide 25 MG TAB PO SCH (09:00)
[2019-11-27] MEDS ORDERED: PANTOprazole 40 MG TAB PO SCH (09:00)
[2019-11-27] MEDS ORDERED: POTASSIUM CHLORIDE 20 MEQ TABCR PO SCH (09:00)
[2019-11-27] MEDS ORDERED: ASPIRIN 81 MG ECTAB PO SCH (09:00)
[2019-11-27] MEDS ORDERED: MULTIVITAMIN TAB PO SCH (09:00)
== END 2019-11-27 10:19 | disposition home health service (06) ==
LOC: 3E 06:25 → ASU 06:25

== ENCOUNTER 2024-05-31 11:06 | Inpatient (IN) ==
--- NOTE | 2024-05-31 11:53 | Emergency Department Note ---
Impression & Plan Bacteremia due to Gram-negative bacteria ED Provider Note NAME: VERN AYALA AGE: 79 SEX: F : 1945 ARRIVES VIA: Walk-In INFORMANT: Patient, ED PROVIDER(S): Guilherme Alarcon MD CHIEF COMPLAINT: Positive blood culture HPI: This is a 79-year-old female presenting with positive blood culture. Patient was seen here yesterday after falls, weakness and was diagnosed with a UTI. Patient was given cefdinir and discharged. She does have blood cultures sent yesterday. This morning one of the blood cultures became positive for E. coli. Patient was advised to come to the hospital by pharmacist, Ger. At this time patient does feel worse than yesterday. She states she feels further weakness, confusion and not feeling herself. She notes she feels that she is going to fall again. She has not fallen since discharge. ROS: See above HPI for pertinent positives & negatives. A total of 10 systems reviewed and were otherwise negative. PAST MEDICAL HISTORY: See Below PAST SURGICAL HISTORY: See Below FAMILY HISTORY: See Below SOCIAL HISTORY: See Below HOME MEDICATIONS: See Below ALLERGIES: See Below VITALS: See Below PHYSICAL EXAMINATION: General: resting comfortably in no acute distress Head: Normocephalic and atraumatic Eyes: Normal inspection, extraocular muscles intact, right periorbital ecchymosis Ear, nose, throat: Normal external exam Neck: Normal range of motion Respiratory: lungs clear to auscultation bilaterally Cardiovascular: Regular rate/rhythm, no murmur GI: soft, nontender, no guarding or rebound Extremities: nontender, moves all extremities Neuro: The patient awake and alert, appropriately conversive, no focal deficits, symmetric faces Skin: Warm, dry, and intact MEDICAL DECISION MAKING: This is a an 79-year-old female presenting for positive blood cultures. Patient was diagnosed with UTI, now has E. coli bacteremia. Will admit for further workup after giving ceftriaxone. Blood work reveals downtrending leukocytosis, stable anemia. Hypokalemic, will replete orally with 40 mg p.o. potassium -Given IV ceftriaxone -Patient admitted to hospitalist service under Dr. Doty Differential diagnosis: Sepsis, bacteremia, UTI ER treatment provided: See below Independent History obtained from: Diagnostics interpreted by me: ECG: None Cardiac Monitoring: An order was placed for continuous cardiac monitoring. The monitor shows a rate of 92 with sinus rhythm. Laboratory studies: As stated above and show below. Imaging studies: See below. Past Med/Surg History Problem List Bacteremia due to Gram-negative bacteria (Acute) Generalized weakness Hypokalemia Bacteremia due to Gram-negative bacteria CHI (closed head injury) (Acute) Acute UTI (Acute) Neuroforaminal stenosis of lumbosacral spine Lumbar stenosis with neurogenic claudication Disc degeneration, lumbar Low back pain with bilateral sciatica Degenerative spondylolisthesis Degenerative scoliosis in adult patient Scoliosis of lumbar spine Encounter for pre-operative examination Anemia DJD (degenerative joint disease) of hip (Acute 03/08/14) Lateral epicondylitis Tennis elbow R - INJECTION 10/29/19. SURGEON'S OFFICE AWARE. Encounter for pre-operative examination History of reverse total replacement of right shoulder joint (~11/2019) Medical History HTN (hypertension) Acid reflux Osteoarthritis Hyperlipidemia Surgical History History of left cataract surgery H/O vein stripping History of colonoscopy History of elbow surgery R & CARPAL TUNNEL SURGERY R HAND (SAME SURGERY) History of foot surgery R (PINS) History of tubal ligation History of cholecystectomy History of total right knee replacement History of total left knee replacement History of total replacement of left shoulder joint History of total right hip replacement Family History Grandfather Family history of esophageal cancer Sister No problems noted. Daughter Family history of diabetes mellitus Social History Smoking Status: Never smoker Second Hand Exposure: No; Do You Dip or Chew Tobacco: No; Tobacco Cessation Education Requested by Patient: No Hx Alcohol Use: No Hx Substance Use: No Preferred Language: Venezuelan Communication Ability: Effective Patient Consumer Marketer Required: Yes Beliefs That Will Affect Care: None Current Living Situation: Spouse Feels Safe at Home: Yes Safety Concerns: Feels Safe At This Time Assistive Devices: Glasses Allergies Allergies Allergy/AdvReac Type Severity Reaction Status Date / Time adhesive AdvReac Unknown BANDAIDS->SKIN Verified 02/01/24 10:13 SORENESS morphine AdvReac Unknown sick in Verified 02/01/24 10:13 stomach, feels funny Home Meds Home Medications Medication Instructions Recorded Confirmed aspirin 81 mg tablet,delayed 81 mg PO QAM 11/06/19 05/31/24 release (Aspir-) calcium carbonate (Calcium 500) 1,000 mg PO QAM 11/06/19 05/31/24 celecoxib 200 mg capsule (Celebrex) 200 mg PO QPM 11/06/19 05/31/24 cholecalciferol (vitamin D3) 50 2,000 unit PO DAILY 11/06/19 05/31/24 mcg (2,000 unit) tablet (Vitamin D3) cyanocobalamin (vitamin B-12) 3,000 mcg PO DAILY 11/06/19 05/31/24 1,000 mcg tablet (Vitamin B-12) diphenhydramine 25 1 tab PO HS PRN Sleep 11/06/19 05/31/24 mg-acetaminophen 500 mg tablet (Tylenol PM Extra Strength) glucosamine-chondroitin 250 mg-200 2 tab PO QAM 11/06/19 05/31/24 mg tablet (Osteo Bi-Flex) hydrochlorothiazide 25 mg tablet 25 mg PO QAM 11/06/19 05/31/24 omeprazole 20 mg capsule,delayed 20 mg PO QAM 11/06/19 05/31/24 release simvastatin 10 mg tablet 10 mg PO QPM 11/06/19 05/31/24 potassium chloride 20 mEq 20 meq PO QAM 11/26/19 05/31/24 tablet,extended release (K-Tab) ascorbic acid (vitamin C) 250 mg 250 mg PO DAILY 12/12/20 05/31/24 tablet (Vitamin C) Previous Rx's Medication Instructions Recorded amoxicillin 500 mg tablet 2,000 mg (4 x 500 mg) PO ONCE #4 01/05/24 tabs gabapentin 300 mg capsule 300 mg PO TID #90 caps 02/29/24 cefdinir 300 mg capsule 300 mg PO BID 7 days #14 caps 05/30/24 Results & Data (ED) Vital Signs Vital Signs - 24 hr 05/31/24 11:13 05/31/24 13:06 Temperature 36.8 C Temperature Source Oral Pulse Rate 90 Pulse Rate [Right Finger] 88 Pulse Rhythm Regular Pulse Rhythm [Right Finger] Regular Pulse Strength Normal Pulse Strength [Right Finger] Normal Respiratory Rate 18 18 Respiratory Effort / Characteristics Non-Labored Non-Labored Spontaneous Respiratory Depth Normal Normal Respiratory Pattern Regular Regular Blood Pressure 125/80 Blood Pressure [Left Arm] 128/84 Blood Pressure Mean 95 Blood Pressure Mean [Left Arm] 98 Blood Pressure Position Sitting Blood Pressure Position [Left Arm] Sitting Pulse Oximetry 96 97 Oxygen Delivery Method Room Air Room Air Sepsis Recent Fever Within 48 Hours No Sepsis New/Unexplained Change in Mental Status No Sepsis Action Taken by Nursing No Action Required Laboratory Data 05/31/24 12:44 05/31/24 12:44 Lab Results 05/31/24 Range/Units 12:44 WBC 10.81 H (4.8-10.8) K/ul RBC 3.82 L (4.20-5.40) M/uL Hgb 11.8 L (12.0-16.0) g/dl Hct 35.8 L (37.0-47.0) % MCV 93.7 (80.0-100.0) fL MCH 30.9 (25.0-34.0) pg MCHC 33.0 (32.0-36.0) g/dL RDW Std Deviation 58.7 H (36.4-46.3) fL RDW Coeff of Alex 17.2 H (11.5-14.5) % Plt Count 329 (130-400) K/uL MPV 9.9 (9.4-12.4) fL Immature Gran % (Auto) 0.6 % Neut % (Auto) 72.7 % Lymph % (Auto) 17.2 % Sibley % (Auto) 8.2 % Eos % (Auto) 0.7 % Baso % (Auto) 0.6 % Neut # (Auto) 7.85 H (1.40-6.50) K/uL Lymph # (Auto) 1.86 (1.20-3.40) K/uL Sibley # (Auto) 0.89 H (0.11-0.59) K/uL Eos # (Auto) 0.08 (0.00-0.50) K/uL Baso # (Auto) 0.06 (0.00-0.20) K/uL Immature Gran # (Auto) 0.07 (0.01-0.20) K/uL Sodium 137 (136-145) mmol/L Potassium 3.1 L (3.5-5.1) mmol/L Chloride 98 (98-107) mmol/L Carbon Dioxide 31 (21-32) mmol/L Anion Gap 8 (3-11) BUN 20 (6-23) mg/dl Creatinine 0.82 (0.6-1.2) mg/dl Est Cr Clr Drug Dosing 57.1 ml/min Est GFR ( Amer) 78.3 ml/min Est GFR (Non-Af Amer) 67.6 ml/min BUN/Creatinine Ratio 24.4 H (10-20) Glucose 107 H (70-99(Fasting)) mg/dl Calcium 9.5 (8.6-10.3) mg/dl Administered Medications Potassium Chloride/Sodium Chloride (Normal Saline W/20 Meq Kcl) 20 meq in 1,000 mls @ 80 mls/hr IV .[id number] MARCELINA Stop: 06/01/24 02:29 Last Admin: 05/31/24 17:49 Dose: 80 mls/hr Documented By: BT Discontinued Medications Ceftriaxone Sodium (Rocephin) 2,000 mg in 50 mls @ 100 mls/hr IV Q24H MARCELINA Stop: 06/02/24 11:29 Last Infusion: 05/31/24 13:42 Dose: Infused Documented By: Admin: 05/31/24 12:52 Dose: 100 mls/hr Documented By: CADEN Potassium Chloride (Potassium Chloride Crtab 20 Meq Tabcr) 40 meq PO NOW STA Stop: 05/31/24 13:28 Last Admin: 05/31/24 13:51 Dose: 40 meq Documented By: RAFFI Discharge Plan Visit Data Chief Complaint: Referred by Doctor ED Provider: Guilherme Alarcon Discharge Problem: Bacteremia due to Gram-negative bacteria Patient Disposition: Admitted As Inpatient Discharge Instructions Interventions: ED Discharge Assessment Last Done: 05/31/24 15:12
[2024-05-31] MEDS: cefTRIAXone SODIUM 2,000 MG/50 ML BAG IV SCH (12:52)
[2024-05-31 13:06] LABS: Basophils # (auto) 0.06 K/uL (0.00-0.20); Basophils % (auto) 0.6 %; Eosinophils # (auto) 0.08 K/uL (0.00-0.50); Eosinophils % (auto) 0.7 %; Hematocrit (blood only) 35.8 % (37.0-47.0); Hemoglobin 11.8 g/dl (12.0-16.0); Immature Granulocytes # (auto) 0.07 K/uL (0.01-0.20); Immature Granulocytes % (auto) 0.6 %; Lymphocytes # (auto) 1.86 K/uL (1.20-3.40); Lymphocytes % (auto) 17.2 %; Mean Corpuscular Hemoglobin 30.9 pg (25.0-34.0); Mean Corpuscular Volume 93.7 fL (80.0-100.0); Mean Platelet Volume 9.9 fL (9.4-12.4); Monocytes # (auto) 0.89 K/uL (0.11-0.59); Monocytes % (auto) 8.2 %; Neutrophils # (auto) 7.85 K/uL (1.40-6.50); Neutrophils % (auto) 72.7 %; Platelet Count 329 K/uL (130-400); RDW Coefficient of Variation 17.2 % (11.5-14.5); RDW Standard Deviation 58.7 fL (36.4-46.3); Red Blood Count 3.82 M/uL (4.20-5.40); White Blood Count 10.81 K/ul (4.8-10.8)
[2024-05-31 13:24] LABS: Calcium 9.5 mg/dl (8.6-10.3); Potassium 3.1 mmol/L (3.5-5.1)
[2024-05-31 13:29] LABS: BUN Creatinine Ratio 24.4 (10-20); Creatinine Clr Calc Pharmacy 57.1 ml/min; Est GFR (African American) 78.3 ml/min; Est GFR (Non-African American) 67.6 ml/min
[2024-05-31] MEDS: POTASSIUM CHLORIDE CRTAB 20 MEQ TABCR PO STA (13:51)
--- NOTE | 2024-05-31 14:44 | History & Physical Report ---
Date of Service May 31, 2024 Assessment & Plan (1) Bacteremia due to Gram-negative bacteria: (2) Acute UTI: (3) HTN (hypertension): (4) Hyperlipidemia: (5) Lumbar stenosis with neurogenic claudication: (6) Hypokalemia: (7) Generalized weakness: Plan This is an 79-year-old female who has a significant past medical history of HTN, HLD, venous insufficiency, lung nodule, interstitial lung disease, age-related osteoporosis, lumbar spinal stenosis who presents to ED after being referred back due to a positive blood culture. Bacteremia due to gram-negative bacteria Acute Complicated UTI admit to PCU continue IV rocephin, day #1 (she had 2 doses of oral cefnidir) upon presentation yesterday in ED on 05/30 she did meet Sepsis Criteria; however today in ED she is no longer meeting that criteria Gentle IVF x 1 L with some potassium await final urine/blood culture obtain echocardiogram in setting of murmur ID consulted Generalized weakness Recent Fall no traumatic injury other than soft tissue bruising PT/OT likely related to infection Hypokalemia replete HTN: chronic, stable, hold HCTZ in setting of infection, BP stable HLD: chronic, stable, continue statin Lumbar Spinal Stenosis: Follows Dr. Swan, has been receiving injections, continue gabapentin ILD: following pulm, recent diagnosis, some SOB with exertion at baseline DVT ppx: SQ Lovenox DNR/DNI PCP: Dr. Garcia Dispo: admit for IV antibiotics A total of 61 minutes was spent coordinating, documenting, and providing care for this patient excluding time spent in the performance of separately billed services. This included personally viewing all current laboratories and imaging studies, medication reconciliation, outpatient chart review, and discussion with specialists. Pt was seen and examined in collaboration with Dr. Doty, please see addendum History of Present Illness Chief Complaint: Referred back to ED 2/2 positive blood cultures. Primary Care Provider: Chris Garcia MD This is an 79-year-old female who has a significant past medical history of HTN, HLD, venous insufficiency, lung nodule, interstitial lung disease, age-related osteoporosis, lumbar spinal stenosis who presents to ED after being referred back due to a positive blood culture. Patient was seen and examined in the ED yesterday after being brought in via EMS secondary to sustaining a fall and being too weak to get up. Her urinalysis was significant for infection and she was discharged home on a course of oral cefdinir. She took 2 doses of this. She received a call today that her blood culture came back positive and she was referred back to the ED. She states that she feels more weak today but denies any further falls. She is felt feverish, chilled and sweats. She does report having dysuria approximately a week ago, "but I did not think anything of it." She reports that she is currently being worked up by pulmonology for, "inflammation in her lungs." She denies any chest pain, shortness breath at rest, cough, hemoptysis, nausea, vomiting, abdominal pain, hematuria, melena or hematochezia. She does report chronic back pain which has been ongoing for the last several weeks. She follows with [facility] orthopedic spine and has also been receiving spinal injections. In ED patient was hemodynamically stable today. She was afebrile and she did not meet sepsis criteria. Her potassium was mildly low at 3.1 otherwise CBC and BMP unremarkable. Her urine culture is growing Escherichia coli with sensitivities still pending. Her blood culture is positive for gram-negative bacilli with PCR detecting E. coli and Enterobacter. she received a dose of IV Rocephin and her potassium was repleted in the ED. Allergies Allergy/AdvReac Type Severity Reaction Status Date / Time adhesive AdvReac Unknown BANDAIDS->SKIN Verified 02/01/24 10:13 SORENESS morphine AdvReac Unknown sick in Verified 02/01/24 10:13 stomach, feels funny Home Medications Medication Instructions Recorded Confirmed Type aspirin 81 mg tablet,delayed 81 mg PO QAM 11/06/19 05/31/24 History release (Aspir-) calcium carbonate (Calcium 500) 1,000 mg PO QAM 11/06/19 05/31/24 History celecoxib 200 mg capsule (Celebrex) 200 mg PO QPM 11/06/19 05/31/24 History cholecalciferol (vitamin D3) 50 2,000 unit PO DAILY 11/06/19 05/31/24 History mcg (2,000 unit) tablet (Vitamin D3) cyanocobalamin (vitamin B-12) 3,000 mcg PO DAILY 11/06/19 05/31/24 History 1,000 mcg tablet (Vitamin B-12) diphenhydramine 25 1 tab PO HS PRN Sleep 11/06/19 05/31/24 History mg-acetaminophen 500 mg tablet (Tylenol PM Extra Strength) glucosamine-chondroitin 250 mg-200 2 tab PO QAM 11/06/19 05/31/24 History mg tablet (Osteo Bi-Flex) hydrochlorothiazide 25 mg tablet 25 mg PO QAM 11/06/19 05/31/24 History omeprazole 20 mg capsule,delayed 20 mg PO QAM 11/06/19 05/31/24 History release simvastatin 10 mg tablet 10 mg PO QPM 11/06/19 05/31/24 History potassium chloride 20 mEq 20 meq PO QAM 11/26/19 05/31/24 History tablet,extended release (K-Tab) ascorbic acid (vitamin C) 250 mg 250 mg PO DAILY 12/12/20 05/31/24 History tablet (Vitamin C) amoxicillin 500 mg tablet 2,000 mg (4 x 500 mg) PO ONCE #4 01/05/24 05/31/24 Rx tabs gabapentin 300 mg capsule 300 mg PO TID #90 caps 02/29/24 05/31/24 Rx cefdinir 300 mg capsule 300 mg PO BID 7 days #14 caps 05/30/24 05/31/24 Rx Past Med/Surg History Problem List Generalized weakness Hypokalemia Bacteremia due to Gram-negative bacteria CHI (closed head injury) (Acute) Acute UTI (Acute) Neuroforaminal stenosis of lumbosacral spine Lumbar stenosis with neurogenic claudication Disc degeneration, lumbar Low back pain with bilateral sciatica Degenerative spondylolisthesis Degenerative scoliosis in adult patient Scoliosis of lumbar spine Encounter for pre-operative examination Anemia DJD (degenerative joint disease) of hip (Acute 03/08/14) Lateral epicondylitis Tennis elbow R - INJECTION 10/29/19. SURGEON'S OFFICE AWARE. Encounter for pre-operative examination History of reverse total replacement of right shoulder joint (~11/2019) Medical History HTN (hypertension) Acid reflux Osteoarthritis Hyperlipidemia Surgical History History of left cataract surgery H/O vein stripping History of colonoscopy History of elbow surgery R & CARPAL TUNNEL SURGERY R HAND (SAME SURGERY) History of foot surgery R (PINS) History of tubal ligation History of cholecystectomy History of total right knee replacement History of total left knee replacement History of total replacement of left shoulder joint History of total right hip replacement Family History Grandfather Family history of esophageal cancer Sister No problems noted. Daughter Family history of diabetes mellitus Social History Smoking Status: Never smoker Second Hand Exposure: No; Do You Dip or Chew Tobacco: No; Tobacco Cessation Education Requested by Patient: No Hx Alcohol Use: No Hx Substance Use: No Preferred Language: Dutch Communication Ability: Effective Community Development Manager Required: Yes Beliefs That Will Affect Care: None Current Living Situation: Spouse Feels Safe at Home: Yes Safety Concerns: Feels Safe At This Time Assistive Devices: Glasses Review of Systems Review of Systems: All systems reviewed & are unremarkable except as noted in HPI & below Physical Exam Physical Exam: Constitutional: WD/WN, vitals as above, NAD, sitting up in bed, pleasant, conversing easily Head: Normocephalic, Atraumatic Eyes: PERRL, conjunctivae normal, anicteric sclerae ENMT: external ear and nose normal, oropharynx normal Neck: trachea midline, no thyromegaly normal visual inspection Respiratory: normal respiratory effort, lungs clear to auscultation, no wheeze, rales, rhonchi. Normal insp/exp effort, no accessory muscle use Cardiovascular: RRR, 2/6 OPHELIA , no edema but larger lower extremities Vessels: no JVD or carotid bruit Chest: normal inspection of chest Abdomen: normal bowel sounds, soft, nontender, no hepatosplenomegaly Musculoskeletal: no cyanosis or clubbing, AROM x 4 Skin: no rashes, warm and dry normal turgor Neurologic: PERRL, EOMI, accommodation nl, no face palsy, no dysarthria CN's II-XI intact bilaterally and moves all extremities Psychiatric: A+Ox3, euthymic affect Lymphatic: no cervical or axillary lymphadenopathy : deferred Results & Data Results & Data Vital Signs (Past 12 Hours) Vital Signs Temp Pulse Resp BP Pulse Ox O2 Del Method 05/31/24 11:13 36.8 C 90 18 125/80 96 Room Air Laboratory Results I have independently reviewed and interpreted patient's admitting labs including CBC, CMP,mag 05/30 UA c and S, blood culture Medications Administered Medication List Ceftriaxone Sodium (Rocephin) 2,000 mg in 50 mls @ 100 mls/hr IV Q24H MARCELINA Stop: 06/02/24 11:29 Last Infusion: 05/31/24 13:42 Dose: Infused Documented By: Admin: 05/31/24 12:52 Dose: 100 mls/hr Documented By: MATTHEWK Discontinued Medications Potassium Chloride (Potassium Chloride Crtab 20 Meq Tabcr) 40 meq PO NOW STA Stop: 05/31/24 13:28 Last Admin: 05/31/24 13:51 Dose: 40 meq Documented By: RAFFI ECG Additional Comments: I have independently reviewed and interpreted patient's admitting EKG which revealed: 103 ventricular rate, ST PVC, RBBB Code Status & VTE Plan Code Status DNR/DNI VTE Prophylaxis Plan VTE Prophylaxis will be ordered: Yes Supervising Physician Co-Signing Physician Notes Patient is an 79-year-old female with history of hypertension, hyperlipidemia, interstitial lung disease and other medical problems presents after being referred for positive blood culture. Patient was evaluated in ED yesterday after sustaining a fall due to generalized weakness and was found to have UTI and was discharged on cefdinir. Patient states that her dysuria improved after taking the antibiotic. She currently denies any chest pain, dyspnea, abdominal pain, hematuria. Please review HPI for complete details of presentation. I personally reviewed blood work and imaging studies. Lactate and procalcitonin within normal limits. Imaging studies showed no acute fractures. Urine culture growing E. coli. Blood culture growing gram-negative bacilli. Physical Exam: Vitals signs as noted above General Appearance:Moderately built and nourished, no apparent distress elderly, Head: normocephalic, Atraumatic Eyes: normal inspection, EOMI Neck: supple, Trachea midline Respiratory/Chest: Normal breath sounds, CTA, No accessory muscle use Cardiovascular: S1, S2, +murmur Abdomen/GI:Soft, Non tender, Bowel sounds present Extremities/Musculoskeletal:normal inspection, no edema Neurologic/Psych:AAOX3, grossly no focal neurological deficits Skin: normal color, warm Complicated UTI Gram-negative bacteremia Agree with IV Rocephin, gentle IV fluids Follow-up cultures Titrate antibiotics as able Hypokalemia Replete electrolytes as needed Monitor I personally interviewed and examined at bedside. Patient's care is coordinated with, Nataliia Nolan PA-C. I have reviewed the advanced practitioner's documentation, and I agree with plan of care. Please refer to the documentation above for details of patient's presentation and for discussion of other issues. I spent a total [id number] coordinating, documenting, and providing care for this patient excluding time spent in the performance of separately billed services.
[2024-05-31] MEDS ORDERED: FAMOTIDINE 20 MG TAB PO PRN (16:38)
[2024-05-31] MEDS ORDERED: POLYETHYLENE (MIRALAX) 17 GM PACK PO PRN (16:38)
[2024-05-31] MEDS ORDERED: ONDANSETRON INJ 2 MG/ML 2 ML VIAL IV PRN (16:38)
[2024-05-31] MEDS: NSS + 20MEQ KCL 20 MEQ/1,000 ML BAG IV SCH (17:49)
[2024-05-31] MEDS: SIMVASTATIN 10 MG TAB PO SCH (20:08)
[2024-05-31] MEDS: POTASSIUM CHLORIDE CRTAB 20 MEQ TABCR PO ONE (20:08)
[2024-05-31] MEDS: GABAPENTIN 300 MG CAP PO SCH (20:09)
[2024-05-31] MEDS: CeleBREX 200 MG CAP PO SCH (20:10)
[2024-05-31] MEDS: ENOXAPARIN INJ 40 MG/0.4 ML SYR SQ SCH (22:42)
[2024-06-01 06:10] LABS: Basophils # (auto) 0.06 K/uL (0.00-0.20); Basophils % (auto) 0.9 %; Eosinophils # (auto) 0.25 K/uL (0.00-0.50); Eosinophils % (auto) 3.7 %; Hematocrit (blood only) 29.5 % (37.0-47.0); Hemoglobin 9.9 g/dl (12.0-16.0); Immature Granulocytes # (auto) 0.03 K/uL (0.01-0.20); Immature Granulocytes % (auto) 0.4 %; Lymphocytes # (auto) 1.16 K/uL (1.20-3.40); Lymphocytes % (auto) 17.4 %; Mean Corpuscular Hemoglobin 30.7 pg (25.0-34.0); Mean Corpuscular Hgb Conc 33.6 g/dL (32.0-36.0); Mean Corpuscular Volume 91.3 fL (80.0-100.0); Mean Platelet Volume 9.9 fL (9.4-12.4); Monocytes # (auto) 0.75 K/uL (0.11-0.59); Monocytes % (auto) 11.2 %; Neutrophils # (auto) 4.43 K/uL (1.40-6.50); Neutrophils % (auto) 66.4 %; Platelet Count 284 K/uL (130-400); RDW Coefficient of Variation 16.3 % (11.5-14.5); RDW Standard Deviation 55.6 fL (36.4-46.3); Red Blood Count 3.23 M/uL (4.20-5.40); White Blood Count 6.68 K/ul (4.8-10.8)
[2024-06-01 06:32] LABS: Albumin Globulin Ratio 0.9 (0.9-2); Albumin Level 3.2 gm/dl (3.4-5.0); BUN Creatinine Ratio 26.5 (10-20); Bilirubin,Total 0.3 mg/dl (0.2-1.0); Calcium 8.6 mg/dl (8.6-10.3); Creatinine Clr Calc Pharmacy 69.1 ml/min; Est GFR (African American) 95.8 ml/min; Est GFR (Non-African American) 82.6 ml/min; Globulin 3.4 gm/dl (2.5-4.0); Magnesium 1.7 mg/dl (1.7-2.4); Potassium 3.7 mmol/L (3.5-5.1); Total Protein 6.6 gm/dl (6.0-8.3)
[2024-06-01 07:17] LABS: Estimated Average Glucose 123 mg/dl; Hemoglobin A1C 5.9 % (4.5-5.6)
[2024-06-01] MEDS: PANTOprazole 40 MG TAB PO SCH (08:52)
[2024-06-01] MEDS: ACETAMINOPHEN 325 MG TAB PO PRN (08:52)
[2024-06-01] MEDS: CHOLECALCIFEROL 25 MCG (1000 UNITS) TAB PO SCH (08:53)
[2024-06-01] MEDS: ADVANCED PROBIOTIC 625 MG CAPSULE PO SCH (08:53)
[2024-06-01] MEDS: ASPIRIN 81 MG ECTAB PO SCH (08:53)
[2024-06-01] MEDS: ASCORBIC ACID 500 MG TAB PO SCH (08:54)
[2024-06-01] MEDS: CALCIUM CARBONATE 1250MG TAB PO SCH (08:54)
--- NOTE | 2024-06-01 08:54 | Electrocardiogram Report ---
Test Reason : Blood Pressure : */* mmHG Vent. Rate : 94 BPM Atrial Rate : 94 BPM P-R Int : 168 ms QRS Dur : 144 ms QT Int : 384 ms P-R-T Axes : 53 -37 -3 degrees QTcB Int : 480 ms Poor data quality, interpretation may be adversely affected Normal sinus rhythm Left axis deviation Right bundle branch block Possible Lateral infarct , age undetermined Abnormal ECG When compared with ECG of 30-May-2024 17:36, Premature ventricular complexes are no longer Present Confirmed by Roni Alonzo ([id number]) on 06/01/2024 8:54:05 AM Referred By: REFERRED SELF Confirmed By: Roni Alonzo
[2024-06-01] MEDS: cefTRIAXone SODIUM 2,000 MG/50 ML BAG IV SCH (12:00)
--- NOTE | 2024-06-01 12:14 | Infectious Disease Consult ---
Date of Service June 01, 2024 Telehealth Information I performed this visit using a real-time telehealth connection between my location and the patients location ([facility]). After connecting through interactive tele-video, patient was identified by name and date of and/or wristband check.Patient (or authorized healthcare health and safety representative) was informed that this was a telemedicine visit and it was being conducted confidentially over secure lines. My office door was closed and no one else was present in the room with me.Patient (or authorized healthcare health and safety representative) provided consent to proceed with the visit, expressed an understanding of privacy and security of the telemedicine visit, and gave permission to have a hospital health and safety representative in the room in order to assist with the visit and to conduct portions of the visit, as needed. I informed the patient (or authorized healthcare health and safety representative) that I reviewed their record and presented the opportunity for them to ask any questions regarding the visit today. The patient agreed to participate. Assessment & Plan (1) E coli bacteremia: (2) Complicated UTI (urinary tract infection): (3) Generalized weakness: Plan Since the E coli is sensitive to cefazolin, I would recommend deescalating ceftriaxone to IV cefazolin 2 g every 8 hours. Whenever she is hemodynamically stable and ready for discharge, can step-down IV cefazolin to oral Bactrim DS to complete a course of 10 days including inpatient appropriate antibiotic days. Thank you for consulting Infectious Disease. We will sign off for now. History of Present Illness History of Present Illness Ms. Jerry is a 79-year-old woman with medical history of HTN, hyperlipidemia, chronic venous insufficiency, interstitial lung disease, age-related osteoporosis and lumbar spinal stenosis who was admitted to [facility] after being called back for positive blood culture. She presented to the emergency department 1 day prior to admission after a fall and complaining of weakness. Her UA was concerning for infection; therefore, after sending for blood and urine cultures, she was sent out on cefdinir. Per patient report, even after taking 2 doses of cefdinir, she continued to have fever and chills. As her blood culture sent during her visit to the emergency department grew E coli, she was called back be admitted and treated for E coli bacteremia. Apparently, the urine culture is growing E coli as well. Id team was consulted for further recommendations and to help guide antibiotic treatment. Allergies Allergy/AdvReac Type Severity Reaction Status Date / Time adhesive AdvReac Unknown BANDAIDS->SKIN Verified 02/01/24 10:13 SORENESS morphine AdvReac Unknown sick in Verified 02/01/24 10:13 stomach, feels funny Home Medications Medication Instructions Recorded Confirmed Type aspirin 81 mg tablet,delayed 81 mg PO QAM 11/06/19 05/31/24 History release (Aspir-) calcium carbonate (Calcium 500) 1,000 mg PO QAM 11/06/19 05/31/24 History celecoxib 200 mg capsule (Celebrex) 200 mg PO QPM 11/06/19 05/31/24 History cholecalciferol (vitamin D3) 50 2,000 unit PO DAILY 11/06/19 05/31/24 History mcg (2,000 unit) tablet (Vitamin D3) cyanocobalamin (vitamin B-12) 3,000 mcg PO DAILY 11/06/19 05/31/24 History 1,000 mcg tablet (Vitamin B-12) diphenhydramine 25 1 tab PO HS PRN Sleep 11/06/19 05/31/24 History mg-acetaminophen 500 mg tablet (Tylenol PM Extra Strength) glucosamine-chondroitin 250 mg-200 2 tab PO QAM 11/06/19 05/31/24 History mg tablet (Osteo Bi-Flex) hydrochlorothiazide 25 mg tablet 25 mg PO QAM 11/06/19 05/31/24 History omeprazole 20 mg capsule,delayed 20 mg PO QAM 11/06/19 05/31/24 History release simvastatin 10 mg tablet 10 mg PO QPM 11/06/19 05/31/24 History potassium chloride 20 mEq 20 meq PO QAM 11/26/19 05/31/24 History tablet,extended release (K-Tab) ascorbic acid (vitamin C) 250 mg 250 mg PO DAILY 12/12/20 05/31/24 History tablet (Vitamin C) amoxicillin 500 mg tablet 2,000 mg (4 x 500 mg) PO ONCE #4 01/05/24 05/31/24 Rx tabs gabapentin 300 mg capsule 300 mg PO TID #90 caps 02/29/24 05/31/24 Rx cefdinir 300 mg capsule 300 mg PO BID 7 days #14 caps 05/30/24 05/31/24 Rx Patient History Medical History HTN (hypertension) Acid reflux Osteoarthritis Hyperlipidemia Surgical History History of left cataract surgery H/O vein stripping History of colonoscopy History of elbow surgery R & CARPAL TUNNEL SURGERY R HAND (SAME SURGERY) History of foot surgery R (PINS) History of tubal ligation History of cholecystectomy History of total right knee replacement History of total left knee replacement History of total replacement of left shoulder joint History of total right hip replacement Family History Grandfather Family history of esophageal cancer Sister No problems noted. 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 Physical Exam Couldn't be performed as he visit was conducted via telemed Results & Data Vital Signs (Past 12 Hours) Vital Signs Temp Pulse Resp BP Pulse Ox O2 Del Method 06/01/24 11:32 36.8 C 78 18 125/78 96 Room Air 06/01/24 07:37 37.0 C 78 18 129/74 95 Room Air 06/01/24 02:59 37.0 C 79 16 125/76 97 Room Air Laboratory Results Microbiology: 05/30: 1 of 2 bottles of blood culture growing Gram-negative bacilli (identified as E coli via PCR) 05/30: Urine culture growing Escherichia coli
--- NOTE | 2024-06-01 12:46 | Hospitalist Progress Note ---
Date of Service June 01, 2024 Assessment & Plan (1) E coli bacteremia: (2) Complicated UTI (urinary tract infection): (3) HTN (hypertension): (4) Lumbar stenosis with neurogenic claudication: (5) Hypokalemia: Plan Patient with E. coli bacteremia due to complicated urinary tract infection feeling significantly improved. Sepsis has resolved. Await final identification and sensitivities of blood cultures Continue IV Rocephin Anticipate patient will be able to be transition to oral antibiotics to complete a 10 to 14-day course for gram-negative bacteremia in the next 1 to 2 days. Family at bedside updated the plan of care as well. Admission and Anticipated Discharge Date Admission Date: May 31, 2024 Subjective Patient states she is feeling significantly improved. Strength is returning. Family at bedside Physical Exam Physical Exam: Constitutional: Alert, nontoxic in appearance HEENT: Mucous membranes moist. Lungs: Clear to auscultation, decreased, no wheezes rales or rhonchi CV: S1-S2, regular Abdomen: Soft, nontender, nondistended Extremities: No significant edema Neuro: No focal deficits Psych: Cooperative, normal mood Results & Data Results & Data Vital Signs (Past 12 Hours) Vital Signs Temp Pulse Resp BP Pulse Ox O2 Del Method 06/01/24 11:32 36.8 C 78 18 125/78 96 Room Air 06/01/24 07:37 37.0 C 78 18 129/74 95 Room Air 06/01/24 02:59 37.0 C 79 16 125/76 97 Room Air Diagnostic Findings Reviewed imaging, laboratory and diagnostic studies. Pertinent findings as below. Reviewed blood and urine culture from 05/30/2024. Urine culture growing E. coli sensitive to Rocephin Blood culture appears to be growing same bacteria, final identification pending WBC 6.6, hemoglobin 9.9, Decreased due to fluids And sepsis
[2024-06-01] MEDS: MELATONIN 3 MG TAB PO PRN (21:56)
[2024-06-02 06:12] LABS: Hematocrit (blood only) 30.4 % (37.0-47.0); Hemoglobin 10.2 g/dl (12.0-16.0); Mean Corpuscular Hemoglobin 30.4 pg (25.0-34.0); Mean Corpuscular Hgb Conc 33.6 g/dL (32.0-36.0); Mean Corpuscular Volume 90.5 fL (80.0-100.0); Mean Platelet Volume 9.8 fL (9.4-12.4); Platelet Count 308 K/uL (130-400); RDW Coefficient of Variation 16.9 % (11.5-14.5); RDW Standard Deviation 56.7 fL (36.4-46.3); Red Blood Count 3.36 M/uL (4.20-5.40); White Blood Count 5.22 K/ul (4.8-10.8)
[2024-06-02 06:35] LABS: BUN Creatinine Ratio 26.5 (10-20); Calcium 8.8 mg/dl (8.6-10.3); Creatinine Clr Calc Pharmacy 69.1 ml/min; Est GFR (African American) 95.8 ml/min; Est GFR (Non-African American) 82.6 ml/min; Magnesium 1.7 mg/dl (1.7-2.4); Potassium 3.6 mmol/L (3.5-5.1)
[2024-06-02] MEDS: ceFAZolin 2000MG 2,000 MG/15 ML SYR IV SCH (11:50)
--- NOTE | 2024-06-02 16:03 | Hospitalist Progress Note ---
Date of Service June 02, 2024 Assessment & Plan (1) E coli bacteremia: Plan: E. coli bacteremia secondary to E. coli UTI Received intravenous Rocephin since admission changed to cefazolin following ID recommendation Patient remains free from any symptoms Will get repeat blood culture today PT and OT evaluation Likely discharge tomorrow on oral antibiotic as recommended by ID specialist (2) Complicated UTI (urinary tract infection): (3) HTN (hypertension): Plan: Blood pressure is controlled (4) Lumbar stenosis with neurogenic claudication: Plan: Denies any acute symptoms (5) Hypokalemia: Plan: Potassium has been normalized Plan Patient with E. coli bacteremia due to complicated urinary tract infection feeling significantly improved. Sepsis has resolved. Await final identification and sensitivities of blood cultures Continue IV Rocephin Anticipate patient will be able to be transition to oral antibiotics to complete a 10 to 14-day course for gram-negative bacteremia in the next 1 to 2 days. Family at bedside updated the plan of care as well. Admission and Anticipated Discharge Date Admission Date: May 31, 2024 Subjective 06/02/2024 The patient was seen and examined in medical floor She has been feeling much better Denies any urinary symptoms and does not have any fever and or chills, no nausea no vomiting Review of Systems Review of Systems: All systems reviewed and are unremarkable except as noted below Physical Exam Constitutional: well developed, well nourished and + obese; not ill appearing Eyes: PERRL, conjunctivae normal, anicteric sclerae ENMT: external ear and nose normal, oropharynx normal Neck: trachea midline, no thyromegaly Respiratory: no respiratory distress Auscultation: lungs clear to auscultation bilaterally Cardiovascular: Rate/Rhythm: regular rate and regular rhythm; not tachycardic Heart Sounds: normal S1 and normal S2; no murmur Extremities: no edema Gastrointestinal (Abdomen): Inspection/Auscultation: normal bowel sounds; abdo men not distended Percussion/Palpation: abdomen soft; abdomen nontender Musculoskeletal: No acute arthritis involving any of the joint Neurologic: normal touch/pain/proprioception and moves all extremities; no focal motor deficits Psychiatric: A+Ox3, euthymic affect Lymphatic: no cervical or axillary lymphadenopathy Results & Data Results & Data Vital Signs (Past 12 Hours) Vital Signs Temp Pulse Resp BP Pulse Ox O2 Del Method 06/02/24 15:26 36.7 C 80 16 130/75 95 Room Air 06/02/24 07:58 36.5 C 76 16 118/68 98 Room Air Laboratory Results Short CBC 06/02/24 Range/Units 05:53 WBC 5.22 (4.8-10.8) K/ul Hgb 10.2 L (12.0-16.0) g/dl Hct 30.4 L (37.0-47.0) % Plt Count 308 (130-400) K/uL BMP 06/02/24 05:53 Sodium 137 Potassium 3.6 Chloride 104 Carbon Dioxide 27 BUN 18 Creatinine 0.68 Glucose 97 Calcium 8.8 Medications Administered Current Inpatient Medications Acetaminophen (Acetaminophen 325 Mg Tab) 650 mg PO Q4H PRN PRN Reason: Pain or Fever Stop: 06/30/24 16:37 Last Admin: 06/01/24 19:24 Dose: 650 mg Ascorbic Acid (Ascorbic Acid 500 Mg Tab) 250 mg PO DAILY MARCELINA Stop: 07/01/24 08:59 Last Admin: 06/02/24 08:01 Dose: 250 mg Aspirin (Aspirin 81 Mg Ectab) 81 mg PO QAM MARCELINA Stop: 07/01/24 08:59 Last Admin: 06/02/24 08:02 Dose: 81 mg Calcium Carbonate (Calcium Carbonate 1250mg Tab) 1 tab PO QAM MARCELINA Stop: 07/01/24 08:59 Last Admin: 06/02/24 08:01 Dose: 1 tab Celecoxib (Celebrex 200 Mg Cap) 200 mg PO QPM MARCELINA Stop: 06/30/24 20:59 Last Admin: 06/01/24 20:03 Dose: 200 mg Enoxaparin Sodium (Enoxaparin Inj 40 Mg/0.4 Ml Syr) 40 mg SQ Q24H MARCELINA Stop: 06/30/24 21:59 Last Admin: 06/01/24 21:56 Dose: 40 mg Famotidine (Famotidine 20 Mg Tab) 20 mg PO DAILY PRN PRN Reason: Heartburn Stop: 06/30/24 16:37 Gabapentin (Gabapentin 300 Mg Cap) 300 mg PO TID MARCELINA Stop: 06/30/24 20:59 Last Admin: 06/02/24 13:54 Dose: 300 mg Cefazolin Sodium (Ancef 2000mg) 2,000 mg in 15 mls @ 3.75 mls/min IV Q8H MARCELINA Stop: 06/16/24 11:59 Last Admin: 06/02/24 11:50 Dose: 3.75 mls/min Lactobacillus Acidophilus (Advanced Probiotic 625 Mg Capsule) 1,250 mg PO DAILY MARCELINA Stop: 07/01/24 08:59 Last Admin: 06/02/24 08:01 Dose: 1,250 mg Melatonin (Melatonin 3 Mg Tab) 6 mg PO HS PRN PRN Reason: Sleep Stop: 06/30/24 20:59 Last Admin: 06/01/24 21:56 Dose: 6 mg Ondansetron HCl (Ondansetron Inj 2 Mg/Ml 2 Ml Vial) 4 mg IV Q6H PRN PRN Reason: Nausea Stop: 06/30/24 16:37 Pantoprazole Sodium (Pantoprazole 40 Mg Tab) 40 mg PO QAM MARCELINA Stop: 07/01/24 08:59 Last Admin: 06/02/24 08:01 Dose: 40 mg Polyethylene Glycol (Polyethylene (Miralax) 17 Gm Pack) 17 gm PO DAILY PRN PRN Reason: Constipation Stop: 06/30/24 16:37 Simvastatin (Simvastatin 10 Mg Tab) 10 mg PO QPM MARCELINA Stop: 06/30/24 20:59 Last Admin: 06/01/24 20:02 Dose: 10 mg Vitamin D (Cholecalciferol 25 Mcg (1000 Units) Tab) 50 mcg PO DAILY MARCELINA Stop: 07/01/24 08:59 Last Admin: 06/02/24 08:02 Dose: 50 mcg
[2024-06-02 20:32] VITALS: O2SAT 96
[2024-06-03 07:02] LABS: Hematocrit (blood only) 32.2 % (37.0-47.0); Hemoglobin 10.4 g/dl (12.0-16.0); Lymphocytes % (auto) 42.7 %; Mean Corpuscular Hemoglobin 30.4 pg (25.0-34.0); Mean Corpuscular Hgb Conc 32.3 g/dL (32.0-36.0); Mean Corpuscular Volume 94.2 fL (80.0-100.0); Neutrophils % (auto) 36.1 %; Platelet Count 326 K/uL (130-400); RDW Standard Deviation 59.4 fL (36.4-46.3); Red Blood Count 3.42 M/uL (4.20-5.40); White Blood Count 5.71 K/ul (4.8-10.8)
[2024-06-03 07:03] LABS: Basophils # (auto) 0.05 K/uL (0.00-0.20); Basophils % (auto) 0.9 %; Eosinophils # (auto) 0.49 K/uL (0.00-0.50); Eosinophils % (auto) 8.6 %; Immature Granulocytes # (auto) 0.03 K/uL (0.01-0.20); Immature Granulocytes % (auto) 0.5 %; Lymphocytes # (auto) 2.44 K/uL (1.20-3.40); Monocytes # (auto) 0.64 K/uL (0.11-0.59); Monocytes % (auto) 11.2 %; Neutrophils # (auto) 2.06 K/uL (1.40-6.50)
[2024-06-03 07:20] VITALS: BP 127/75; PULSE 77; RESP 16; TEMP 97.9
[2024-06-03 07:20] LABS: BUN Creatinine Ratio 29.4 (10-20); Calcium 8.8 mg/dl (8.6-10.3); Creatinine Clr Calc Pharmacy 69.4 ml/min; Est GFR (African American) 95.8 ml/min; Est GFR (Non-African American) 82.6 ml/min; Potassium 3.8 mmol/L (3.5-5.1)
--- NOTE | 2024-06-03 11:24 | Hospitalist Progress Note ---
Date of Service June 03, 2024 Assessment & Plan (1) E coli bacteremia: Plan: E. coli bacteremia secondary to E. coli UTI Received intravenous Rocephin since admission changed to cefazolin following ID recommendation Patient remains free from any symptoms Will get repeat blood culture today PT and OT evaluation Likely discharge tomorrow on oral antibiotic as recommended by ID specialist history Remains totally asymptomatic Without any fever and no chills She has been ambulating without any difficulties and will be discharged home this afternoon (2) Complicated UTI (urinary tract infection): Plan: As above Advised to drink more fluid Finish the course of antibiotic with Bactrim DS 1 tablet twice daily (3) HTN (hypertension): Plan: Blood pressure is controlled (4) Lumbar stenosis with neurogenic claudication: Plan: Denies any acute symptoms (5) Hypokalemia: Plan: Potassium has been normalized Plan Patient with E. coli bacteremia due to complicated urinary tract infection feeling significantly improved. Sepsis has resolved. Await final identification and sensitivities of blood cultures Continue IV Rocephin Anticipate patient will be able to be transition to oral antibiotics to complete a 10 to 14-day course for gram-negative bacteremia in the next 1 to 2 days. Family at bedside updated the plan of care as well. Admission and Anticipated Discharge Date Admission Date: May 31, 2024 Subjective 06/02/2024 The patient was seen and examined in medical floor She has been feeling much better Denies any urinary symptoms and does not have any fever and or chills, no nausea no vomiting 06/03/2024 Patient was seen and examined in medical floor in presence of the She has been stable without any acute symptoms No fever and no chills, no nausea no vomiting and no problem with urination She has been ambulating in the room and in the hallway without any difficulties She will be discharged this afternoon Review of Systems Review of Systems: All systems reviewed and are unremarkable except as noted below Physical Exam Constitutional: well developed, well nourished and + obese; not ill appearing Eyes: PERRL, conjunctivae normal, anicteric sclerae ENMT: external ear and nose normal, oropharynx normal Neck: trachea midline, no thyromegaly Respiratory: no respiratory distress Auscultation: lungs clear to auscultation bilaterally Cardiovascular: Rate/Rhythm: regular rate and regular rhythm; not tachycardic Heart Sounds: normal S1 and normal S2; no murmur Extremities: no edema Gastrointestinal (Abdomen): Inspection/Auscultation: normal bowel sounds; abdomen not distended Percussion/Palpation: abdomen soft; abdomen nontender Neurologic: normal touch/pain/proprioception and moves all extremities; no focal motor deficits Psychiatric: A+Ox3, euthymic affect Lymphatic: no cervical or axillary lymphadenopathy Results & Data Results & Data Vital Signs (Past 12 Hours) Vital Signs Temp Pulse Resp BP Pulse Ox O2 Del Method 06/03/24 07:19 36.6 C 77 16 127/75 96 Room Air Laboratory Results Short CBC 06/03/24 Range/Units 06:35 WBC 5.71 (4.8-10.8) K/ul Hgb 10.4 L (12.0-16.0) g/dl Hct 32.2 L (37.0-47.0) % Plt Count 326 (130-400) K/uL BMP 06/03/24 06:35 Sodium 138 Potassium 3.8 Chloride 104 Carbon Dioxide 29 BUN 20 Creatinine 0.68 Glucose 98 Calcium 8.8 Medications Administered Current Inpatient Medications Acetaminophen (Acetaminophen 325 Mg Tab) 650 mg PO Q4H PRN PRN Reason: Pain or Fever Stop: 06/30/24 16:37 Last Admin: 06/02/24 20:24 Dose: 650 mg Ascorbic Acid (Ascorbic Acid 500 Mg Tab) 250 mg PO DAILY [facility] Stop: 07/01/24 08:59 Last Admin: 06/03/24 08:52 Dose: 250 mg Aspirin (Aspirin 81 Mg Ectab) 81 mg PO QAM [facility] Stop: 07/01/24 08:59 Last Admin: 06/03/24 08:53 Dose: 81 mg Calcium Carbonate (Calcium Carbonate 1250mg Tab) 1 tab PO QAM MARCELINA Stop: 07/01/24 08:59 Last Admin: 06/03/24 08:53 Dose: 1 tab Celecoxib (Celebrex 200 Mg Cap) 200 mg PO QPM MARCELINA Stop: 06/30/24 20:59 Last Admin: 06/02/24 20:23 Dose: 200 mg Enoxaparin Sodium (Enoxaparin Inj 40 Mg/0.4 Ml Syr) 40 mg SQ Q24H MARCELINA Stop: 06/30/24 21:59 Last Admin: 06/02/24 21:43 Dose: 40 mg Famotidine (Famotidine 20 Mg Tab) 20 mg PO DAILY PRN PRN Reason: Heartburn Stop: 06/30/24 16:37 Gabapentin (Gabapentin 300 Mg Cap) 300 mg PO TID MARCELINA Stop: 06/30/24 20:59 Last Admin: 06/03/24 08:51 Dose: 300 mg Lactobacillus Acidophilus (Advanced Probiotic 625 Mg Capsule) 1,250 mg PO DAILY MARCELINA Stop: 07/01/24 08:59 Last Admin: 06/03/24 08:54 Dose: 1,250 mg Melatonin (Melatonin 3 Mg Tab) 6 mg PO HS PRN PRN Reason: Sleep Stop: 06/30/24 20:59 Last Admin: 06/02/24 21:43 Dose: 6 mg Ondansetron HCl (Ondansetron Inj 2 Mg/Ml 2 Ml Vial) 4 mg IV Q6H PRN PRN Reason: Nausea Stop: 06/30/24 16:37 Pantoprazole Sodium (Pantoprazole 40 Mg Tab) 40 mg PO QAM MARCELINA Stop: 07/01/24 08:59 Last Admin: 06/03/24 08:53 Dose: 40 mg Polyethylene Glycol (Polyethylene (Miralax) 17 Gm Pack) 17 gm PO DAILY PRN PRN Reason: Constipation Stop: 06/30/24 16:37 Simvastatin (Simvastatin 10 Mg Tab) 10 mg PO QPM MARCELINA Stop: 06/30/24 20:59 Last Admin: 06/02/24 20:22 Dose: 10 mg Trimethoprim/Sulfamethoxazole (Sulfamethoxazole/Trimethoprim Ds 800/160mg Tab) 1 tab PO NOW ONE Stop: 06/03/24 11:20 Vitamin D (Cholecalciferol 25 Mcg (1000 Units) Tab) 50 mcg PO DAILY MARCELINA Stop: 07/01/24 08:59 Last Admin: 06/03/24 08:54 Dose: 50 mcg
[2024-06-03] MEDS: SULFAMETHOXAZOLE/TRIMETHOPRIM DS 800/160MG TAB PO ONE (11:47)
--- NOTE | 2024-06-04 08:34 | Discharge Summary ---
Date of Service June 04, 2024 Admission HPI Per Admitting Provider This is an 79-year-old female who has a significant past medical history of HTN, HLD, venous insufficiency, lung nodule, interstitial lung disease, age-related osteoporosis, lumbar spinal stenosis who presents to ED after being referred back due to a positive blood culture. Patient was seen and examined in the ED yesterday after being brought in via EMS secondary to sustaining a fall and being too weak to get up. Her urinalysis was significant for infection and she was discharged home on a course of oral cefdinir. She took 2 doses of this. She received a call today that her blood culture came back positive and she was referred back to the ED. She states that she feels more weak today but denies any further falls. She is felt feverish, chilled and sweats. She does report having dysuria approximately a week ago, "but I did not think anything of it." She reports that she is currently being worked up by pulmonology for, "inflammation in her lungs." She denies any chest pain, shortness breath at r est, cough, hemoptysis, nausea, vomiting, abdominal pain, hematuria, melena or hematochezia. She does report chronic back pain which has been ongoing for the last several weeks. She follows with [facility] orthopedic spine and has also been receiving spinal injections. In ED patient was hemodynamically stable today. She was afebrile and she did not meet sepsis criteria. Her potassium was mildly low at 3.1 otherwise CBC and BMP unremarkable. Her urine culture is growing Escherichia coli with sensitivities still pending. Her blood culture is positive for gram-negative bacilli with PCR detecting E. coli and Enterobacter. she received a dose of IV Rocephin and her potassium was repleted in the ED. Admission Exam Per Admitting Provider Physical Exam: Constitutional: WD/WN, vitals as above, NAD, sitting up in bed, pleasant, conversing easily Head: Normocephalic, Atraumatic Eyes: PERRL, conjunctivae normal, anicteric sclerae ENMT: external ear and nose normal, oropharynx normal Neck: trachea midline, no thyromegaly normal visual inspection Respiratory: normal respiratory effort, lungs clear to auscultation, no wheeze, rales, rhonchi. Normal insp/exp effort, no accessory muscle use Cardiovascular: RRR, 2/6 OPHELIA , no edema but larger lower extremities Vessels: no JVD or carotid bruit Chest: normal inspection of chest Abdomen: normal bowel sounds, soft, nontender, no hepatosplenomegaly Musculoskeletal: no cyanosis or clubbing, AROM x 4 Skin: no rashes, warm and dry normal turgor Neurologic: PERRL, EOMI, accommodation nl, no face palsy, no dysarthria CN's II-XI intact bilaterally and moves all extremities Psychiatric: A+Ox3, euthymic affect Lymphatic: no cervical or axillary lymphadenopathy : deferred Principal Diagnosis E. coli UTI with E. coli bacteremia Discharge Exam Constitutional well developed, well nourished and + obese; not ill appearing Eyes PERRL, conjunctivae normal, anicteric sclerae ENMT external ear and nose normal, oropharynx normal Neck trachea midline, no thyromegaly Respiratory no respiratory distress Auscultation: lungs clear to auscultation bilaterally Cardiovascular Rate/Rhythm: regular rate and regular rhythm; not tachycardic Heart Sounds: normal S1 and normal S2; no murmur Extremities: no edema Gastrointestinal (Abdomen) Inspection/Auscultation: normal bowel sounds; abdomen not distended Percussion/Palpation: abdomen soft; abdomen nontender Neurologic normal touch/pain/proprioception and moves all extremities; no focal motor deficits Psychiatric A+Ox3, euthymic affect Lymphatic no cervical or axillary lymphadenopathy Discharge Data Allergies Allergy/AdvReac Type Severity Reaction Status Date / Time adhesive AdvReac Unknown BANDAIDS->SKIN Verified 02/01/24 10:13 SORENESS morphine AdvReac Unknown sick in Verified 02/01/24 10:13 stomach, feels funny Consultations 05/31/24 13:44 Consult Infectious Diseases Routine 05/31/24 13:52 ED Decision to Admit Stat Hospital Course (1) E coli bacteremia: E. coli bacteremia secondary to E. coli UTI Received intravenous Rocephin since admission changed to cefazolin following ID recommendation Patient remains free from any symptoms Will get repeat blood culture today PT and OT evaluation Likely discharge tomorrow on oral antibiotic as recommended by ID specialist history Remains totally asymptomatic Without any fever and no chills She has been ambulating without any difficulties and will be discharged home this afternoon (2) Complicated UTI (urinary tract infection): As above Advised to drink more fluid Finish the course of antibiotic with Bactrim DS 1 tablet twice daily (3) HTN (hypertension): Blood pressure is controlled (4) Lumbar stenosis with neurogenic claudication: Denies any acute symptoms (5) Hypokalemia: Potassium has been normalized Plan Patient with E. coli bacteremia due to complicated urinary tract infection feeling significantly improved. Sepsis has resolved. Await final identification and sensitivities of blood cultures Continue IV Rocephin Anticipate patient will be able to be transition to oral antibiotics to complete a 10 to 14-day course for gram-negative bacteremia in the next 1 to 2 days. Family at bedside updated the plan of care as well. Total Time Total Time Spent Total Time Spent (In Minutes): 35 minutes Discharge Plan Discharge Items Patient Disposition: Home - Self-Care Reason For Visit: BACTEREMIA Discharge Diagnosis: E. coli UTI with E. coli bacteremia Condition on Discharge: Fair Activity: Resume your previous activity Non-emergency contact: Primary Care Provider Call non-emergency contact if: you have any medication questions and your symptoms worsen Follow-up/Referrals: Chris Garcia MD [Primary Care Provider] - (Your doctor's office will give you a call on Tuesday with an appointment within 7 days) Diet: Regular Addtl Attending Provider Instructions: Please take precautions to avoid falls Continue Bactrim from tomorrow morning to finish the course Drink more fluid You can try some probiotics [id number] Please keep appointments with your healthcare provider Pending Studies at Discharge: No Stand-Alone Forms: My [employer], Smoking Cessation Medications and DC Order Prescriptions: New Advanced Probiotic 625 mg (10 billion cell) Capsule 1 cap PO DAILY Qty: 30 0RF sulfamethoxazole-trimethoprim [Bactrim DS] 800-160 mg tablet 1 tab PO BID Qty: 13 0RF Continued amoxicillin 500 mg tablet 2,000 mg PO ONCE Qty: 4 3RF Rx Instructions: 4 tabs 1 hour prior to procedure gabapentin 300 mg capsule 300 mg PO TID Qty: 90 3RF celecoxib [Celebrex] 200 mg Capsule 200 mg PO QPM simvastatin 10 mg Tablet 10 mg PO QPM cyanocobalamin (vitamin B-12) [Vitamin B-12] 1,000 mcg Tablet 3,000 mcg PO DAILY aspirin [Aspir-81] 81 mg Tablet,Delayed Release (Dr/Ec) 81 mg PO QAM calcium carbonate [Calcium 500] 500 mg calcium (1,250 mg) Tablet 1,000 mg PO QAM omeprazole 20 mg Capsule,Delayed Release(Dr/Ec) 20 mg PO QAM hydrochlorothiazide 25 mg Tablet 25 mg PO QAM diphenhydramine-acetaminophen [Tylenol PM Extra Strength] 25-500 mg Tablet 1 tab PO HS PRN (Reason: Sleep) glucosamine-chondroitin [Osteo Bi-Flex] 250-200 mg Tablet 2 tab PO QAM cholecalciferol (vitamin D3) [Vitamin D3] 2,000 unit Tablet 2,000 unit PO DAILY potassium chloride [K-Tab] 20 mEq Tablet Extended Release 20 meq PO QAM ascorbic acid (vitamin C) [Vitamin C] 250 mg Tablet 250 mg PO DAILY Discontinued cefdinir 300 mg capsule 300 mg PO BID 7 Days Qty: 14 0RF Discharge Orders: Discharge Order (Routine); Ordered 06/03/24 Ordered By: Machelle Huff Admission Data Admit Date/Time: 05/31/24 13:44 Attending Provider: Machelle Huff Admit Provider: Estiven Doty Primary Care Provider: Chris Garcia Other Providers: Ranjit Klein Other Interventions: Discharge Summary Assessment (RN) Last Done: 06/03/24 12:18
== END 2024-06-03 12:55 | disposition home or self-care (01) | DRG 872 ==
LOC: ED 11:06 → SUATTDRO 13:44 → 2S 13:44 → 3N 06-01 16:30

== ENCOUNTER 2024-10-09 10:26 | Inpatient (IN) ==
--- NOTE | 2024-10-09 11:02 | Emergency Department Note ---
Impression & Plan Pulmonary embolism ADMIT ED Provider Note HPI: History obtained from patient. The patient is a 79-year-old female who presents the emergency department with chief complaint shortness of breath. Patient states that she has had progressive shortness of breath since last evening prior to going to bed. Patient denies any recent fever/cough. Patient denies any chest pain. On arrival here to the ED the patient is noted to be tachycardic at 120 and hypoxic at 85 on room air, she was placed on nonrebreather mask with good improvement prior to my evaluation. Patient is afebrile on arrival, blood pressure stable at 129/83. ROS: - Per HPI Differential Diagnosis: Acute CHF exacerbation, COPD exacerbation, acute coronary syndrome, pulmonary embolism, pneumonia, pleural effusion, pulmonary edema, amongst other potential pathologies. *Outpatient medications and allergy history reviewed. PE: General: Alert HEENT: Normocephalic, trachea midline Eyes: Extraocular eye movement is intact, no scleral erythema Pulmonary: Slightly diminished bilaterally without wheezing or crackles Cardio: Regular rate and rhythm GI: Abdomen is soft to palpation : No suprapubic tenderness MSK: No evidence of trauma or malformation of the extremities, no edema Skin: No evidence of rash Neuro: Alert, no focal deficits Psychiatric: Cooperative INDEPENDENT INTERPRETATIONS: ekg monitor: (As interpreted by myself): - An order was placed for continuous cardiac monitoring - Patient was noted to be in sinus rhythm with a rate of 110 EKG: (As interpreted by myself): Rate: 108 Rhythm: Sinus rhythm Intervals: QRS 126 ms, otherwise within normal limits ST changes: No ST elevation Time: 1056 Chest x-ray: (As interpreted by myself): No focal infiltrate Interventions provided in ED: -DuoNeb breathing treatment, IV heparin bolus and drip Medical Decision Making: IV was established and lab work obtained, patient was placed on ekg monitor. Lab work shows a mild leukocytosis at 10.98, hemoglobin is normal, platelet count is normal, venous blood gas shows normal pH, CMP does not show any evidence of any critical findings, troponin did return elevated at 958, BNP is also elevated at 298, chest x-ray does not show any obvious pathology per my interpretation, no focal infiltrate. Given the patient's lab findings with dyspnea and hypoxia, I did obtain CT angiography of the chest that shows evidence of extensive bilateral pulmonary embolism. Patient was therefore placed on heparin drip, I discussed all the above findings with the admitting midlevel provider for [facility] and the patient was placed for admission to the service of Dr. Dunn. I explained all the above findings to the patient and her family at the bedside and they are in agreement for admission. Patient remained stable prior to admission on 4 L nasal cannula oxygen with saturations at 94%. Consultants/Discussions held with other healthcare providers: -Hospitalist, Dr. Dunn Disposition discussion held by myself with: -Patient * CRITICAL CARE TIME: ( 55 ) minutes -Stabilization of patient with hypoxia at 85% on room air requiring supplemental oxygen for correction, time spent at the bedside, potation of diagnostic studies, initiation of heparin drip for patient with elevated troponin in the setting of bilateral pulmonary emboli, discussion with other healthcare providers and arrangement of admission. Diagnosis: 1. Bilateral pulmonary emboli, acute 2. Hypoxia, acute 3. Elevated high-sensitivity troponin, acute 4. 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 SURGEON'S OFFICE AWARE. Encounter for pre-operative examination History of reverse total replacement of right shoulder joint (~11/2019) Medical History HTN (hypertension) Acid reflux Osteoarthritis Hyperlipidemia Surgical History History of left cataract surgery H/O vein stripping History of colonoscopy History of elbow surgery R & CARPAL TUNNEL SURGERY R HAND (SAME SURGERY) History of foot surgery R (PINS) History of tubal ligation History of cholecystectomy History of total right knee replacement History of total left knee replacement History of total replacement of left shoulder joint History of total right hip replacement Family History Grandfather Family history of esophageal cancer Sister No problems noted. 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: Yes Beliefs That Will Affect Care: None Current Living Situation: Spouse Feels Safe at Home: Yes Assistive Devices: Walker Allergies Allergies Allergy/AdvReac Type Severity Reaction Status Date / Time adhesive AdvReac Unknown BANDAIDS->SKIN Verified 10/09/24 13:38 SORENESS morphine AdvReac Unknown sick in Verified 10/09/24 13:38 stomach, feels funny Home Meds Home Medications Medication Instructions Recorded Confirmed celecoxib 200 mg capsule (Celebrex) 200 mg PO QPM 11/06/19 10/09/24 cholecalciferol (vitamin D3) 50 2,000 unit PO DAILY 11/06/19 10/09/24 mcg (2,000 unit) tablet (Vitamin D3) cyanocobalamin (vitamin B-12) 3,000 mcg PO DAILY 11/06/19 10/09/24 1,000 mcg tablet (Vitamin B-12) diphenhydramine 25 1 tab PO HS PRN Sleep 11/06/19 10/09/24 mg-acetaminophen 500 mg tablet (Tylenol PM Extra Strength) glucosamine-chondroitin 250 mg-200 2 tab PO QAM 11/06/19 10/09/24 mg tablet (Osteo Bi-Flex) hydrochlorothiazide 25 mg tablet 25 mg PO QAM 11/06/19 10/09/24 omeprazole 20 mg capsule,delayed 20 mg PO BID 11/06/19 10/09/24 release simvastatin 10 mg tablet 10 mg PO QPM 11/06/19 10/09/24 ascorbic acid (vitamin C) 250 mg 250 mg PO DAILY 12/12/20 10/09/24 tablet (Vitamin C) aspirin 81 mg tablet,delayed 81 mg PO QAM 10/09/24 10/09/24 release calcium carbonate (Calcium 500) 1,000 mg PO QAM 10/09/24 10/09/24 fluticasone propionate 50 2 spray intranasal QAM PRN Nasal 10/09/24 10/09/24 mcg/actuation nasal Congestion spray,suspension potassium chloride 20 mEq 20 meq PO QAM 10/09/24 10/09/24 tablet,extended release(part/cryst) (Klor-Con M) Previous Rx's Medication Instructions Recorded amoxicillin 500 mg tablet 2,000 mg (4 x 500 mg) PO ONCE #4 01/05/24 tabs L.acidop,casei,lactis,rham-B.lact,kalyani 1 cap PO DAILY #30 caps 06/03/24 625 mg (10 billion cell) capsule (Advanced Probiotic) gabapentin 300 mg capsule 300 mg PO TID #90 caps 07/09/24 Results & Data (ED) Vital Signs Vital Signs - 24 hr 10/09/24 10:44 10/09/24 10:57 10/09/24 10:57 Temperature 36.4 C L Temperature Source Oral Pulse Rate 120 H Pulse Rate from SpO2 Sensor Respiratory Rate 24 Respiratory Effort / Characteristics Respiratory Depth Shallow Blood Pressure 129/83 Blood Pressure Mean 98 Pulse Oximetry 85 L Oxygen Delivery Method Room Air Room Air Oxygen Flow Rate 80 Sepsis Recent Fever Within 48 Hours No Sepsis New/Unexplained Change in Mental Status N/A Sepsis Action Taken by Nursing No Action Required Oxygen Flow Rate - Titration 15 Pulse Oximetry Post Tiitration 100 10/09/24 11:14 10/09/24 11:15 10/09/24 11:27 Temperature Temperature Source Pulse Rate 119 H 104 H 108 H Pulse Rate from SpO2 Sensor 106 H 109 H Respiratory Rate 17 19 Respiratory Effort / Characteristics Respiratory Depth Blood Pressure Blood Pressure Mean Pulse Oximetry 100 99 Oxygen Delivery Method Oxygen Flow Rate Sepsis Recent Fever Within 48 Hours Sepsis New/Unexplained Change in Mental Status Sepsis Action Taken by Nursing Oxygen Flow Rate - Titration Pulse Oximetry Post Tiitration 10/09/24 11:30 10/09/24 11:42 10/09/24 11:51 Temperature Temperature Source Pulse Rate 110 H Pulse Rate from SpO2 Sensor 111 H 104 H Respiratory Rate 22 Respiratory Effort / Characteristics Non-Labored Spontaneous Respiratory Depth Normal Blood Pressure Blood Pressure Mean Pulse Oximetry 99 97 Oxygen Delivery Method Oxygen Flow Rate Sepsis Recent Fever Within 48 Hours Sepsis New/Unexplained Change in Mental Status Sepsis Action Taken by Nursing Oxygen Flow Rate - Titration Pulse Oximetry Post Tiitration 10/09/24 11:51 10/09/24 11:54 10/09/24 12:00 Temperature Temperature Source Pulse Rate Pulse Rate from SpO2 Sensor 110 H Respiratory Rate Respiratory Effort / Characteristics Respiratory Depth Blood Pressure 151/104 H Blood Pressure Mean 112 Pulse Oximetry 97 97 Oxygen Delivery Method Nasal Cannula Oxygen Flow Rate 4 Sepsis Recent Fever Within 48 Hours Sepsis New/Unexplained Change in Mental Status Sepsis Action Taken by Nursing Oxygen Flow Rate - Titration Pulse Oximetry Post Tiitration 10/09/24 12:06 10/09/24 12:18 10/09/24 12:24 Temperature Temperature Source Pulse Rate 106 H 104 H 108 H Pulse Rate from SpO2 Sensor 107 H 104 H 109 H Respiratory Rate 17 13 Respiratory Effort / Characteristics Respiratory Depth Blood Pressure Blood Pressure Mean Pulse Oximetry 100 95 95 Oxygen Delivery Method Oxygen Flow Rate Sepsis Recent Fever Within 48 Hours Sepsis New/Unexplained Change in Mental Status Sepsis Action Taken by Nursing Oxygen Flow Rate - Titration Pulse Oximetry Post Tiitration 10/09/24 12:30 10/09/24 12:48 10/09/24 13:10 Temperature Temperature Source Pulse Rate 102 H Pulse Rate from SpO2 Sensor 103 H Respiratory Rate Respiratory Effort / Characteristics Respiratory Depth Blood Pressure 131/91 140/103 H Blood Pressure Mean 109 120 Pulse Oximetry 93 Oxygen Delivery Method Nasal Cannula Oxygen Flow Rate 4 Sepsis Recent Fever Within 48 Hours Sepsis New/Unexplained Change in Mental Status Sepsis Action Taken by Nursing Oxygen Flow Rate - Titration Pulse Oximetry Post Tiitration 10/09/24 13:27 10/09/24 13:30 10/09/24 13:30 Temperature Temperature Source Pulse Rate 105 H 102 H Pulse Rate from SpO2 Sensor 104 H 102 H Respiratory Rate 19 18 Respiratory Effort / Characteristics Respiratory Depth Blood Pressure 139/96 Blood Pressure Mean 123 Pulse Oximetry 96 96 Oxygen Delivery Method Oxygen Flow Rate Sepsis Recent Fever Within 48 Hours Sepsis New/Unexplained Change in Mental Status Sepsis Action Taken by Nursing Oxygen Flow Rate - Titration Pulse Oximetry Post Tiitration 10/09/24 13:30 10/09/24 13:30 10/09/24 13:42 Temperature Temperature Source Pulse Rate 105 H Pulse Rate from SpO2 Sensor 91 H Respiratory Rate 17 Respiratory Effort / Characteristics Respiratory Depth Blood Pressure 139/96 139/96 Blood Pressure Mean 123 123 Pulse Oximetry 96 Oxygen Delivery Method Oxygen Flow Rate Sepsis Recent Fever Within 48 Hours Sepsis New/Unexplained Change in Mental Status Sepsis Action Taken by Nursing Oxygen Flow Rate - Titration Pulse Oximetry Post Tiitration 10/09/24 14:00 10/09/24 14:06 10/09/24 14:14 Temperature Temperature Source Pulse Rate 106 H Pulse Rate from SpO2 Sensor 99 H Respiratory Rate 19 Respiratory Effort / Characteristics Non-Labored Spontaneous Respiratory Depth Normal Blood Pressure 151/103 H Blood Pressure Mean 116 Pulse Oximetry 96 96 Oxygen Delivery Method Nasal Cannula Oxygen Flow Rate Sepsis Recent Fever Within 48 Hours Sepsis New/Unexplained Change in Mental Status Sepsis Action Taken by Nursing Oxygen Flow Rate - Titration Pulse Oximetry Post Tiitration 10/09/24 14:15 10/09/24 14:18 10/09/24 14:30 Temperature Temperature Source Pulse Rate 103 H 100 H Pulse Rate from SpO2 Sensor 104 H 98 H Respiratory Rate 16 17 Respiratory Effort / Characteristics Respiratory Depth Blood Pressure 147/101 H Blood Pressure Mean 131 Pulse Oximetry 95 96 Oxygen Delivery Method Oxygen Flow Rate Sepsis Recent Fever Within 48 Hours Sepsis New/Unexplained Change in Mental Status Sepsis Action Taken by Nursing Oxygen Flow Rate - Titration Pulse Oximetry Post Tiitration 10/09/24 14:33 10/09/24 14:36 10/09/24 14:36 Temperature Temperature Source Pulse Rate 107 H Pulse Rate from SpO2 Sensor Respiratory Rate Respiratory Effort / Characteristics Respiratory Depth Blood Pressure 140/106 H 140/106 H Blood Pressure Mean 117 117 Pulse Oximetry Oxygen Delivery Method Oxygen Flow Rate Sepsis Recent Fever Within 48 Hours Sepsis New/Unexplained Change in Mental Status Sepsis Action Taken by Nursing Oxygen Flow Rate - Titration Pulse Oximetry Post Tiitration 10/09/24 14:36 Temperature Temperature Source Pulse Rate 106 H Pulse Rate from SpO2 Sensor Respiratory Rate 22 Respiratory Effort / Characteristics Respiratory Depth Blood Pressure Blood Pressure Mean Pulse Oximetry Oxygen Delivery Method Oxygen Flow Rate Sepsis Recent Fever Within 48 Hours Sepsis New/Unexplained Change in Mental Status Sepsis Action Taken by Nursing Oxygen Flow Rate - Titration Pulse Oximetry Post Tiitration Laboratory Data 10/09/24 11:08 10/09/24 11:55 Lab Results 10/09/24 10/09/24 10/09/24 Range/Units 11:00 11:08 11:55 WBC 10.98 H (4.8-10.8) K/ul RBC 4.12 L (4.20-5.40) M/uL Hgb 12.2 (12.0-16.0) g/dl Hct 38.2 (37.0-47.0) % MCV 92.7 (80.0-100.0) fL MCH 29.6 (25.0-34.0) pg MCHC 31.9 L (32.0-36.0) g/dL RDW Std Deviation 49.9 H (36.4-46.3) fL RDW Coeff of Alex 14.6 H (11.5-14.5) % Plt Count 343 (130-400) K/uL MPV 9.8 (9.4-12.4) fL Immature Gran % (Auto) 0.6 % Neut % (Auto) 65.8 % Lymph % (Auto) 25.0 % [place] % (Auto) 7.8 % Eos % (Auto) 0.4 % Baso % (Auto) 0.4 % Neut # (Auto) 7.22 H (1.40-6.50) K/uL Lymph # (Auto) 2.75 (1.20-3.40) K/uL [place] # (Auto) 0.86 H (0.11-0.59) K/uL Eos # (Auto) 0.04 (0.00-0.50) K/uL Baso # (Auto) 0.04 (0.00-0.20) K/uL Immature Gran # (Auto) 0.07 (0.01-0.20) K/uL PT 10.8 (9.0-12.0) Seconds INR 1.0 (0.9-1.1) VBG pH 7.38 (7.36-7.41) VBG pCO2 52 H (38-50) mmHg VBG pO2 34 mmHg VBG HCO3 31 mmol/L VBG O2 Saturation < 60.0 % VBG Base Excess 4.4 mEq/L Sodium 141 (136-145) mmol/L Potassium 3.8 (3.5-5.1) mmol/L Chloride 104 (98-107) mmol/L Carbon Dioxide 31 (21-32) mmol/L Anion Gap 6 (3-11) BUN 26 H (6-23) mg/dl Creatinine 0.81 (0.6-1.2) mg/dl Est Cr Clr Drug Dosing 59.8 ml/min eGFR 73.34 BUN/Creatinine Ratio 32.1 H (10-20) Glucose 116 H (70-99(Fasting)) mg/dl Lactate 2.0 (0.4-2.0) mmol/L Calcium 9.8 (8.6-10.3) mg/dl Total Bilirubin 0.6 (0.2-1.0) mg/dl AST 20 (13-39) U/L ALT 12 (7-52) U/L Alkaline Phosphatase 79 (34-104) U/L Troponin I High Sens 958.2 H* (0-14) pg/ml B-Natriuretic Peptide 298 H (0-100) pg/ml Total Protein 7.5 (6.0-8.3) gm/dl Albumin 4.2 (3.4-5.0) gm/dl Globulin 3.3 (2.5-4.0) gm/dl Albumin/Globulin Ratio 1.3 (0.9-2) Adenovirus (PCR) Not Detected (NotDetected) B. pertussis DNA (PCR) Not Detected (NotDetected) B.parapertussis DNA PCR Not Detected (NotDetected) C. pneumoniae DNA (PCR) Not Detected (NotDetected) Coronavirus OC43 (PCR) Not Detected (NotDetected) Coronavirus HKU1 (PCR) Not Detected (NotDetected) Coronavirus 229E (PCR) Not Detected (NotDetected) SARS-CoV-2 (PCR) Not Detected (NotDetected) Coronavirus NL63 (PCR) Not Detected (NotDetected) Human Metapneumovir PCR Not Detected (NotDetected) Influenza Type A (PCR) Not Detected (NotDetected) Influenza Type B (PCR) Not Detected (NotDetected) M. pneumoniae (PCR) Not Detected (NotDetected) Parainfluenza 1 (PCR) Not Detected (NotDetected) Parainfluenza 2 (PCR) Not Detected (NotDetected) Parainfluenza 3 (PCR) Not Detected (NotDetected) Parainfluenza 4 (PCR) Not Detected (NotDetected) RSV (PCR) Not Detected (NotDetected) Entero/Rhino (PCR) Not Detected (NotDetected) 10/09/24 Range/Units 14:00 WBC (4.8-10.8) K/ul RBC (4.20-5.40) M/uL Hgb (12.0-16.0) g/dl Hct (37.0-47.0) % MCV (80.0-100.0) fL MCH (25.0-34.0) pg MCHC (32.0-36.0) g/dL RDW Std Deviation (36.4-46.3) fL RDW Coeff of Alex (11.5-14.5) % Plt Count (130-400) K/uL MPV (9.4-12.4) fL Immature Gran % (Auto) % Neut % (Auto) % Lymph % (Auto) % [place] % (Auto) % Eos % (Auto) % Baso % (Auto) % Neut # (Auto) (1.40-6.50) K/uL Lymph # (Auto) (1.20-3.40) K/uL [place] # (Auto) (0.11-0.59) K/uL Eos # (Auto) (0.00-0.50) K/uL Baso # (Auto) (0.00-0.20) K/uL Immature Gran # (Auto) (0.01-0.20) K/uL PT (9.0-12.0) Seconds INR (0.9-1.1) VBG pH (7.36-7.41) VBG pCO2 (38-50) mmHg VBG pO2 mmHg VBG HCO3 mmol/L VBG O2 Saturation % VBG Base Excess mEq/L Sodium (136-145) mmol/L Potassium (3.5-5.1) mmol/L Chloride (98-107) mmol/L Carbon Dioxide (21-32) mmol/L Anion Gap (3-11) BUN (6-23) mg/dl Creatinine (0.6-1.2) mg/dl Est Cr Clr Drug Dosing ml/min eGFR BUN/Creatinine Ratio (10-20) Glucose (70-99(Fasting)) mg/dl Lactate (0.4-2.0) mmol/L Calcium (8.6-10.3) mg/dl Total Bilirubin (0.2-1.0) mg/dl AST (13-39) U/L ALT (7-52) U/L Alkaline Phosphatase (34-104) U/L Troponin I High Sens 927.1 H* (0-14) pg/ml B-Natriuretic Peptide (0-100) pg/ml Total Protein (6.0-8.3) gm/dl Albumin (3.4-5.0) gm/dl Globulin (2.5-4.0) gm/dl Albumin/Globulin Ratio (0.9-2) Adenovirus (PCR) (NotDetected) B. pertussis DNA (PCR) (NotDetected) B.parapertussis DNA PCR (NotDetected) C. pneumoniae DNA (PCR) (NotDetected) Coronavirus OC43 (PCR) (NotDetected) Coronavirus HKU1 (PCR) (NotDetected) Coronavirus 229E (PCR) (NotDetected) SARS-CoV-2 (PCR) (NotDetected) Coronavirus NL63 (PCR) (NotDetected) Human Metapneumovir PCR (NotDetected) Influenza Type A (PCR) (NotDetected) Influenza Type B (PCR) (NotDetected) M. pneumoniae (PCR) (NotDetected) Parainfluenza 1 (PCR) (NotDetected) Parainfluenza 2 (PCR) (NotDetected) Parainfluenza 3 (PCR) (NotDetected) Parainfluenza 4 (PCR) (NotDetected) RSV (PCR) (NotDetected) Entero/Rhino (PCR) (NotDetected) Administered Medications Heparin Sodium/Dextrose (Heparin Sodium/Dextrose) 25,000 units in 500 mls @ 25 mls/hr IV .Q20H [facility]; Protocol Stop: 11/08/24 13:44 Last Admin: 10/09/24 13:54 Dose: 1,250 units/hr, 25 mls/hr Documented By: MANDY Co-signed By: ANT Discontinued Medications Albuterol (Albut/Ipratrop 3mg/0.5mg Neb 3 Ml Vial) 3 ml NEB NOW STA; Protocol Stop: 10/09/24 11:01 Last Admin: 10/09/24 11:12 Dose: 3 ml Documented By: MANDY Heparin Sodium (Porcine) (Heparin Sod (Porcine) 1000 Unit/Ml) 1 units IV NOW ONE Stop: 10/09/24 13:34 Last Admin: 10/09/24 13:54 Dose: 5,000 units Documented By: MANDY Co-signed By: TREVIN Heparin Sodium/Dextrose (Heparin Iv Adult Wt-Based Standard W/ Initial Bolus Protocol) 1 each IV NOW STA; Protocol Stop: 10/09/24 13:19 Last Admin: 10/09/24 13:54 Dose: 1 each Documented By: MANDY Ioversol (Optiray 320 125ml) 118 ml IV ONCE ONE Stop: 10/09/24 13:04 Last Admin: 10/09/24 13:04 Dose: 118 ml Documented By: JOSH Imaging Data Radiologist's Impression: Chest X-Ray 10/09/24 10:55 XR chest 1V portable CLINICAL HISTORY: Dyspnea. COMPARISON STUDY: Chest radiograph May 30, 2024. FINDINGS: Bilateral shoulder arthroplasties are incidentally noted. There is a hiatal hernia. Cardiomegaly is unchanged. There is no pneumothorax or pleural effusion. There is no consolidation to suggest pneumonia. IMPRESSION: No acute cardiopulmonary findings. No change in appearance of the chest. ACT 112: Negative or not required by law. Electronically signed by: César Stevenson M.D. 10/09/2024 11:30 AM Chest CTA 10/09/24 11:33 CT angio chest PE protocol CLINICAL HISTORY: PE TECHNIQUE: Multidetector row helical CT of the chest was performed with angiographic protocol. Coronal and sagittal reformations were obtained. Coronal and sagittal MIPS were obtained from the axial data set and were submitted for review. Automated dose lowering techniques and/or adjustment according to patient size were utilized for this exam. CT DOSE: 860.42 mGy.cm Comparison: Comparison is made to chest radiograph 10/09/2024 FINDINGS: Lungs and pleura: Interstitial thickening is seen. Heart and pericardium: Heart size is normal. No pericardial effusion. There is flattening of the interventricular septum without definite enlargement of the right ventricle. Vessels: Lobar, segmental, and subsegmental pulmonary emboli are seen. Moderate atherosclerotic disease is seen. Mediastinum and gia: A few calcified lymph nodes are seen. Chest wall and lower neck: Unremarkable. Abdomen: Unremarkable. Bones: Unremarkable. IMPRESSION: Extensive pulmonary emboli are seen in the lobar, segmental, and subsegmental branches. There may be mild right heart strain with flattening of the interventricular septum. ACT 112: Negative or not required by law. Electronically signed by: Alfred Peguero M.D. 10/09/2024 1:30 PM Discharge Plan Visit Data Chief Complaint: Shortness of Breath/Dyspnea Stated Complaint: SOB/TROUBLE BREATHING ED Provider: Luis Eduardo Dodd Discharge Problem: Pulmonary embolism Patient Disposition: Admitted As Inpatient Discharge Instructions Interventions: ED Discharge Assessment Last Done: 10/09/24 14:15 Forms Stand Alone Forms: [facility] [employer] Prescriptions Prescriptions: No Action amoxicillin 500 mg tablet 2,000 mg PO ONCE Qty: 4 3RF Rx Instructions: 4 tabs 1 hour prior to procedure gabapentin 300 mg capsule 300 mg PO TID Qty: 90 3RF celecoxib [Celebrex] 200 mg Capsule 200 mg PO QPM simvastatin 10 mg Tablet 10 mg PO QPM cyanocobalamin (vitamin B-12) [Vitamin B-12] 1,000 mcg Tablet 3,000 mcg PO DAILY omeprazole 20 mg Capsule,Delayed Release(Dr/Ec) 20 mg PO BID hydrochlorothiazide 25 mg Tablet 25 mg PO QAM diphenhydramine-acetaminophen [Tylenol PM Extra Strength] 25-500 mg Tablet 1 tab PO HS PRN (Reason: Sleep) glucosamine-chondroitin [Osteo Bi-Flex] 250-200 mg Tablet 2 tab PO QAM cholecalciferol (vitamin D3) [Vitamin D3] 2,000 unit Tablet 2,000 unit PO DAILY ascorbic acid (vitamin C) [Vitamin C] 250 mg Tablet 250 mg PO DAILY Advanced Probiotic 625 mg (10 billion cell) Capsule 1 cap PO DAILY Qty: 30 0RF aspirin 81 mg Tablet,Delayed Release (Dr/Ec) 81 mg PO QAM potassium chloride [Klor-Con M20] 20 mEq tablet,ER particles/crystals 20 meq PO QAM calcium carbonate [Calcium 500] 500 mg calcium (1,250 mg) Tablet,Chewable 1,000 mg PO QAM fluticasone propionate 50 mcg/actuation spray,suspension 2 spray INTRANASAL QAM PRN (Reason: Nasal Congestion) Referrals Referrals: Chris Garcia MD [Primary Care Provider] -
[2024-10-09] MEDS: ALBUT/IPRATROP 3MG/0.5MG NEB 3 ML VIAL NEB STA (11:12)
[2024-10-09 11:22] LABS: Base Excess VBG 4.4 mEq/L; HCO3 VBG 31 mmol/L; Oxygen Saturation VBG < 60.0 %; PCO2 VBG 52 mmHg (38-50); PO2 VBG 34 mmHg; pH VBG 7.38 (7.36-7.41)
--- NOTE | 2024-10-09 11:32 | XRay Report ---
XR chest 1V portable CLINICAL HISTORY: Dyspnea. COMPARISON STUDY: Chest radiograph May 30, 2024. FINDINGS: Bilateral shoulder arthroplasties are incidentally noted. There is a hiatal hernia. Cardiom egaly is unchanged. There is no pneumothorax or pleural effusion. There is no consolidation to sugges t pneumonia. IMPRESSION: No acute cardiopulmonary findings. No change in appearance of the chest. ACT 112: Negative or not required by law. Electronically signed by: César Stevenson M.D. 10/09/2024 11:30 AM
[2024-10-09 11:35] LABS: Basophils # (auto) 0.04 K/uL (0.00-0.20); Basophils % (auto) 0.4 %; Eosinophils # (auto) 0.04 K/uL (0.00-0.50); Eosinophils % (auto) 0.4 %; Hematocrit (blood only) 38.2 % (37.0-47.0); Hemoglobin 12.2 g/dl (12.0-16.0); Immature Granulocytes # (auto) 0.07 K/uL (0.01-0.20); Immature Granulocytes % (auto) 0.6 %; Lymphocytes # (auto) 2.75 K/uL (1.20-3.40); Mean Corpuscular Hemoglobin 29.6 pg (25.0-34.0); Mean Corpuscular Hgb Conc 31.9 g/dL (32.0-36.0); Mean Corpuscular Volume 92.7 fL (80.0-100.0); Mean Platelet Volume 9.8 fL (9.4-12.4); Monocytes # (auto) 0.86 K/uL (0.11-0.59); Monocytes % (auto) 7.8 %; Neutrophils # (auto) 7.22 K/uL (1.40-6.50); Neutrophils % (auto) 65.8 %; Platelet Count 343 K/uL (130-400); RDW Coefficient of Variation 14.6 % (11.5-14.5); RDW Standard Deviation 49.9 fL (36.4-46.3); Red Blood Count 4.12 M/uL (4.20-5.40); White Blood Count 10.98 K/ul (4.8-10.8)
[2024-10-09 12:04] LABS: Prothrombin Time 10.8 Seconds (9.0-12.0)
[2024-10-09 12:30] LABS: Adenovirus PCR Not Detected (NotDetected); Bordetella parapertussis PCR Not Detected (NotDetected); Bordetella pertussis PCR Not Detected (NotDetected); Chlamydia pneumoniae PCR Not Detected (NotDetected); Coronavirus 229E PCR Not Detected (NotDetected); Coronavirus CoV-2 (COVID19)PCR Not Detected (NotDetected); Coronavirus HKU1 PCR Not Detected (NotDetected); Coronavirus NL63 PCR Not Detected (NotDetected); Coronavirus OC43PCR Not Detected (NotDetected); Human Metapneumovirus PCR Not Detected (NotDetected); Influenza A PCR Not Detected (NotDetected); Influenza B PCR Not Detected (NotDetected); Mycoplasma pneumoniae PCR Not Detected (NotDetected); Parainfluenza Virus 1 PCR Not Detected (NotDetected); Parainfluenza Virus 2 PCR Not Detected (NotDetected); Parainfluenza Virus 3 PCR Not Detected (NotDetected); Parainfluenza Virus 4 PCR Not Detected (NotDetected); Respiratory Syncytial VirusPCR Not Detected (NotDetected); Rhinovirus/Enterovirus PCR Not Detected (NotDetected)
[2024-10-09 12:33] LABS: Albumin Globulin Ratio 1.3 (0.9-2); Albumin Level 4.2 gm/dl (3.4-5.0); BUN Creatinine Ratio 32.1 (10-20); Bilirubin,Total 0.6 mg/dl (0.2-1.0); Calcium 9.8 mg/dl (8.6-10.3); Creatinine Clr Calc Pharmacy 59.8 ml/min; Globulin 3.3 gm/dl (2.5-4.0); Potassium 3.8 mmol/L (3.5-5.1); Total Protein 7.5 gm/dl (6.0-8.3)
[2024-10-09 12:47] LABS: Troponin I High Sensitivity 958.2 pg/ml (0-14)
[2024-10-09] MEDS: OPTIRAY 320 125ml IV ONE (13:04)
--- NOTE | 2024-10-09 13:31 | CT Scan Report ---
CT angio chest PE protocol CLINICAL HISTORY: PE TECHNIQUE: Multidetector row helical CT of the chest was performed with angiographic protocol. Pablo l and sagittal reformations were obtained. Coronal and sagittal MIPS were obtained from the axial anthony a set and were submitted for review. Automated dose lowering techniques and/or adjustment according to patient size were utilized for this exam. CT DOSE: 860.42 mGy.cm Comparison: Comparison is made to chest radiograph 10/09/2024 FINDINGS: Lungs and pleura: Interstitial thickening is seen. Heart and pericardium: Heart size is normal. No pericardial effusion. There is flattening of the inte rventricular septum without definite enlargement of the right ventricle. Vessels: Lobar, segmental, and subsegmental pulmonary emboli are seen. Moderate atherosclerotic disea se is seen. Mediastinum and gia: A few calcified lymph nodes are seen. Chest wall and lower neck: Unremarkable. Abdomen: Unremarkable. Bones: Unremarkable. IMPRESSION: Extensive pulmonary emboli are seen in the lobar, segmental, and subsegmental branches. There may be mild right heart strain with flattening of the interventricular septum. ACT 112: Negative or not required by law. Electronically signed by: Alfred Peguero M.D. 10/09/2024 1:30 PM
--- NOTE | 2024-10-09 13:45 | History & Physical Report ---
Date of Service October 09, 2024 Assessment & Plan (1) Multiple pulmonary emboli: (2) Acute hypoxic respiratory failure: (3) Elevated troponin: (4) Right upper lobe pulmonary nodule: Plan Deena Jerry is an 79-year-old female with PMHx significant for HLD, HTN, interstitial lung disease, hiatal hernia with GERD, right upper lobe lung nodule, chronic venous insufficiency, generalized osteoarthrosis, age-related osteoporosis, lumbar spinal stenosis and history of E. coli bacteremia [05/2024] who presented to the ED for evaluation on 10/09/24 secondary to SOB and was found to have extensive pulmonary emboli on admitting imaging. She is being admitted for management of the following: Multiple Pulmonary Emboli, Acute Hypoxic Respiratory Failure: In the ED, patient was found to be acutely hypoxic on RA at 85% SpO2 upon initial evaluation. Patient was initially on nonrebreather however she was then transitioned to 4L via NC; she was saturating well in the low to mid 90s SpO2 at the time of my evaluation in the ED around 12PM. VBG unremarkable. Respiratory BioFire panel negative. UA unremarkable. Initial laboratory evaluation was grossly unremarkable except for elevated troponin as outlined below and elevated BNP of 298. Patient without evidence of fluid overload on exam and CXR was unremarkable. Chest CTA however revealed extensive pulmonary emboli within the lobar, segmental and subsegmental branches. There was also concern for mild right heart strain with flattening of the interventricular septum on the chest CTA. IV heparin initiated in the ED - continue. Pulmonology consulted. Resting echocardiogram ordered. BLE venous Doppler studies ordered as well. Initial hypercoagulable workup including homocystine, factor V Leiden and factor II testing ordered. Patient will need outpatient hematology referral for further hypercoagulable workup. Can wean O2 as tolerated. Elevated Troponin ISO Possible R Heart Strain 2/2 Multiple Pulmonary Emboli: Initial troponin 958.2, repeat troponin 927.1; EKG revealed sinus tachycardia with fusion complexes however did not reveal any acutely overt ST changes. Patient was without chest pain at the time of my evaluation in the ED around 12PM. Echocardiogram pending as per above; suspect R heart strain. Will continue to trend troponin Q4H. EKG daily x 2. EKG with chest pain PRN. Interstitial Lung Disease, Right Upper Lobe Lung Nodule: Patient follows with Dr. Schafer [[facility] at [facility] Chest CT with contrast performed 05/03/24 noted a new irregularly-shaped RUL nodule measuring approximately 12mm as well as a ISHA nodule measuring 5mm (was previously 3mm compared to imaging studies from 2013). Patient underwent PET CT skull base to mid-thigh region on 05/14/24 which redemonstrated a probable UIP pattern with 6mm RUL nodule vs dense reticulation --> she already has a follow- up repeat chest CT scheduled for 11/08/[address] Schafer per chart review. Other Chronic Medical Conditions: * HTN - Allowing for permissive hypertension at this time ISO acute pulmonary emboli, possible R heart strain. Holding HCTZ for now. * HLD - Continue statin. Holding ASA for now ISO heparin use as per above; no prior H/O CAD per chart review. GERD - Continue PPI. DVT Prophylaxis: On IV heparin as per above - continue. Code Status: DNR/DNI - No Resuscitation; Per discussion with the patient at [facility] in the ED. PCP: Chris Garcia MD Disposition: Admit to PCU/Telemetry for further inpatient evaluation and management. PT/OT evaluations ordered. Patient's daughter, Maria Alejandra, would like routine updates. She can be reached at the following cell phone #: [phone]. Patient seen in collaboration with Dr. Dunn. Please see addendum. I spent a total of 65 minutes coordinating, documenting, and providing care for this patient excluding time spent in the performance of separately billed services. This included personally reviewing all current laboratories and imaging studies, medical reconciliation, outpatient chart review and discussion with specialists. This chart was completed in part utilizing Speech Voice Recognition Software. Grammatical errors, random word insertions, pronoun errors, and incomplete sentences are an occasional consequence of this system due to software limitations, ambient noise, and hardware issues. Any formal questions or concerns about the content, text, or information contained within the body of this dictation should be directly addressed to the provider for clarification./ History of Present Illness Chief Complaint: SOB/Dyspnea Primary Care Provider: Chris Garcia MD Deena Jerry is an 79-year-old female with PMHx significant for HLD, HTN, interstitial lung disease, hiatal hernia with GERD, right upper lobe lung nodule, chronic venous insufficiency, generalized osteoarthrosis, age-related osteoporosis, lumbar spinal stenosis and history of E. coli bacteremia [05/2024] who presented to the ED for evaluation on 10/09/24 secondary to SOB. History obtained from the patient, discussion with ED provider and associated chart review. Patient noted to be hypoxic on presentation with O2 sat of 85% on RA. Patient has rebounded well on 4L via NC. She was notably tachycardic on presentation as well. CXR was unremarkable; chest CTA however revealed extensive pulmonary emboli within the lobar, segmental and subsegmental branches. Patient reports that she started to feel short of breath last evening and that it had progressed to the point where she could no longer ambulate more than a few feet before becoming significantly winded starting this morning. She slept very poorly overnight secondary to her SOB. No prior smoking history. No previous history of blood clots and no known history of hypercoagulable disorders. Patient does report that she is rather sedentary at baseline as she has a history of lumbar spinal stenosis as well as generalized osteoarthrosis making ambulation somewhat difficult at times. She denies any recent falls or prior use of assistive ambulatory devices. She denies any recent travels. Patient does recall that her mother had a history of blood clots and "blood clots in her brain." She does not feel SOB on 4L at the time of our conversation in the ED around 12PM. She was experiencing some chest pain with deep breathing overnight however this has since resolved. She is without chest pain at the time of my evaluation. She does not endorse any recent lower extremity swelling however she does have chronic LLE swelling without edema from a previous injury. Allergies Allergy/AdvReac Type Severity Reaction Status Date / Time adhesive AdvReac Unknown BANDAIDS->SKIN Verified 10/09/24 13:38 SORENESS morphine AdvReac Unknown sick in Verified 10/09/24 13:38 stomach, feels funny Home Medications Medication Instructions Recorded Confirmed Type celecoxib 200 mg capsule (Celebrex) 200 mg PO QPM 11/06/19 10/09/24 History cholecalciferol (vitamin D3) 50 2,000 unit PO DAILY 11/06/19 10/09/24 History mcg (2,000 unit) tablet (Vitamin D3) cyanocobalamin (vitamin B-12) 3,000 mcg PO DAILY 11/06/19 10/09/24 History 1,000 mcg tablet (Vitamin B-12) diphenhydramine 25 1 tab PO HS PRN Sleep 11/06/19 10/09/24 History mg-acetaminophen 500 mg tablet (Tylenol PM Extra Strength) glucosamine-chondroitin 250 mg-200 2 tab PO QAM 11/06/19 10/09/24 History mg tablet (Osteo Bi-Flex) hydrochlorothiazide 25 mg tablet 25 mg PO QAM 11/06/19 10/09/24 History omeprazole 20 mg capsule,delayed 20 mg PO BID 11/06/19 10/09/24 History release simvastatin 10 mg tablet 10 mg PO QPM 11/06/19 10/09/24 History ascorbic acid (vitamin C) 250 mg 250 mg PO DAILY 12/12/20 10/09/24 History tablet (Vitamin C) amoxicillin 500 mg tablet 2,000 mg (4 x 500 mg) PO ONCE #4 01/05/24 10/09/24 Rx tabs L.acidop,casei,lactis,rham-B.lact,kalyani 1 cap PO DAILY #30 caps 06/03/24 10/09/24 Rx 625 mg (10 billion cell) capsule (Advanced Probiotic) gabapentin 300 mg capsule 300 mg PO TID #90 caps 07/09/24 10/09/24 Rx aspirin 81 mg tablet,delayed 81 mg PO QAM 10/09/24 10/09/24 History release calcium carbonate (Calcium 500) 1,000 mg PO QAM 10/09/24 10/09/24 History fluticasone propionate 50 2 spray intranasal QAM PRN Nasal 10/09/24 10/09/24 History mcg/actuation nasal Congestion spray,suspension potassium chloride 20 mEq 20 meq PO QAM 10/09/24 10/09/24 History tablet,extended release(part/cryst) (Isac Huang) Past Med/Surg History Problem List Right upper lobe pulmonary nodule Abnormal echocardiogram Elevated troponin Dyspnea Interstitial lung disease Pulmonary embolism (Acute) Acute hypoxic respiratory failure Multiple pulmonary emboli Complicated UTI (urinary tract infection) E coli bacteremia Bacteremia due to Gram-negative bacteria (Acute) Generalized weakness Hypokalemia Bacteremia due to Gram-negative bacteria Neuroforaminal stenosis of lumbosacral spine Lumbar stenosis with neurogenic claudication Disc degeneration, lumbar Low back pain with bilateral sciatica Degenerative spondylolisthesis Degenerative scoliosis in adult patient Scoliosis of lumbar spine Encounter for pre-operative examination Anemia DJD (degenerative joint disease) of hip (Acute 03/08/14) Lateral epicondylitis Tennis elbow R - INJECTION 10/29/19. SURGEON'S OFFICE AWARE. Encounter for pre-operative examination History of reverse total replacement of right shoulder joint (~11/2019) Medical History HTN (hypertension) Acid reflux Osteoarthritis Hyperlipidemia Surgical History History of left cataract surgery H/O vein stripping History of colonoscopy History of elbow surgery R & CARPAL TUNNEL SURGERY R HAND (SAME SURGERY) History of foot surgery R (PINS) History of tubal ligation History of cholecystectomy History of total right knee replacement History of total left knee replacement History of total replacement of left shoulder joint History of total right hip replacement Family History Grandfather Family history of esophageal cancer Sister No problems noted. Daughter Family history of diabetes mellitus Social History Smoking Status: Never smoker Second Hand Exposure: No; Do You Dip or Chew Tobacco: No; Hx Alcohol Use: No Hx Substance Use: No Preferred Language: Hungarian Communication Ability: Effective Hospital Chief Financial Officer Required: Yes Beliefs That Will Affect Care: None Current Living Situation: Spouse Feels Safe at Home: Yes Assistive Devices: Walker Review of Systems Review of Systems: At least ten systems reviewed and negative, except as noted in the HPI. Physical Exam Physical Exam: General: WD/WN, vitals as above, NAD, sitting up in bed, pleasant, conversing appropriately. A+Ox3, euthymic affect. HEENT: Normocephalic, atraumatic. Conjunctivae normal, anicteric sclerae. External ear and nose normal, oropharynx normal. Respiratory: Normal respiratory effort, lungs clear to auscultation, no wheez e/rales/rhonchi. No accessory muscle use, on 4L NC. Cardiovascular: Regular rate, rhythm, normal peripheral pulses, no significant BLE edema, chronic L ankle swelling. Vessels: No JVD. Abdomen/GI: Normal bowel sounds, soft, nondistended, nontender to palpation in all quadrants. Extremities/Musculoskeletal: No cyanosis or clubbing, extremities motor strength intact, moves all extremities. Neurologic: No overt focal deficits, CN's II-XI not formally tested but appear grossly intact bilaterally. Results & Data Results & Data Vital Signs (Past 12 Hours) Vital Signs Temp Pulse Resp BP Pulse Ox O2 Del Method O2 Flow Rate 10/09/24 12:48 102 H 93 Nasal Cannula 4 10/09/24 12:30 131/91 10/09/24 12:24 108 H 13 95 10/09/24 12:18 104 H 95 10/09/24 12:06 106 H 17 100 10/09/24 12:00 151/104 H 10/09/24 11:54 97 10/09/24 11:51 97 Nasal Cannula 4 10/09/24 11:42 97 10/09/24 11:30 110 H 22 99 10/09/24 11:27 108 H 19 99 10/09/24 11:15 104 H 17 100 10/09/24 11:14 119 H 10/09/24 10:57 Room Air 80 10/09/24 10:44 36.4 C L 120 H 24 129/83 85 L Room Air Laboratory Results Short CBC 10/09/24 Range/Units 11:08 WBC 10.98 H (4.8-10.8) K/ul Hgb 12.2 (12.0-16.0) g/dl Hct 38.2 (37.0-47.0) % Plt Count 343 (130-400) K/uL BMP 10/09/24 11:55 Sodium 141 Potassium 3.8 Chloride 104 Carbon Dioxide 31 BUN 26 H Creatinine 0.81 Glucose 116 H Calcium 9.8 Liver Function 10/09/24 Range/Units 11:55 Total Bilirubin 0.6 (0.2-1.0) mg/dl AST 20 (13-39) U/L ALT 12 (7-52) U/L Alkaline Phosphatase 79 (34-104) U/L Albumin 4.2 (3.4-5.0) gm/dl Diagnostic Findings Chest X-Ray 10/09/24 10:55 XR chest 1V portable CLINICAL HISTORY: Dyspnea. COMPARISON STUDY: Chest radiograph May 30, 2024. FINDINGS: Bilateral shoulder arthroplasties are incidentally noted. There is a hiatal hernia. Cardiomegaly is unchanged. There is no pneumothorax or pleural effusion. There is no consolidation to suggest pneumonia. IMPRESSION: No acute cardiopulmonary findings. No change in appearance of the chest. ACT 112: Negative or not required by law. Electronically signed by: César Stevenson M.D. 10/09/2024 11:30 AM Chest CTA 10/09/24 11:33 CT angio chest PE protocol CLINICAL HISTORY: PE TECHNIQUE: Multidetector row helical CT of the chest was performed with angiographic protocol. Coronal and sagittal reformations were obtained. Coronal and sagittal MIPS were obtained from the axial data set and were submitted for review. Automated dose lowering techniques and/or adjustment according to patient size were utilized for this exam. CT DOSE: 860.42 mGy.cm Comparison: Comparison is made to chest radiograph 10/09/2024 FINDINGS: Lungs and pleura: Interstitial thickening is seen. Heart and pericardium: Heart size is normal. No pericardial effusion. There is flattening of the interventricular septum without definite enlargement of the right ventricle. Vessels: Lobar, segmental, and subsegmental pulmonary emboli are seen. Moderate atherosclerotic disease is seen. Mediastinum and gia: A few calcified lymph nodes are seen. Chest wall and lower neck: Unremarkable. Abdomen: Unremarkable. Bones: Unremarkable. IMPRESSION: Extensive pulmonary emboli are seen in the lobar, segmental, and subsegmental branches. There may be mild right heart strain with flattening of the interventr icular septum. ACT 112: Negative or not required by law. Electronically signed by: Alfred Pegeuro M.D. 10/09/2024 1:30 PM Medications Administered Discontinued Medications Albuterol (Albut/Ipratrop 3mg/0.5mg Neb 3 Ml Vial) 3 ml NEB NOW STA; Protocol Stop: 10/09/24 11:01 Last Admin: 10/09/24 11:12 Dose: 3 ml Documented By: MANDY Ioversol (Optiray 320 125ml) 118 ml IV ONCE ONE Stop: 10/09/24 13:04 Last Admin: 10/09/24 13:04 Dose: 118 ml Documented By: JOSH Code Status & VTE Plan Code Status DNR/DNI - No Resuscitation Supervising Physician Co-Signing Physician Notes Attending Addendum: Case reviewed with the advanced practitioner. I have personally performed a history and physical examination on the patient. I have reviewed the advanced practitioner's documentation on the date of service referenced in note, and I agree with, and take responsibility for the plan of care. please refer to her notes for full details patient seen and examined, records reviewed by myself as well on exam, patient seen resting in bed, comfortable, on 2 L of oxygen Having echocardiogram done States she feels okay, having some shortness of breath but improving Speaks in sentences, with no tachypnea or accessory muscle use Denies headache, dizziness, chest pain No other new symptoms VS noted and reviewed oriented x 3 , not in distress, speaks in sentences with no effort nor accessory muscle use normal rate, regular rhythm, no murmurs clear breath sounds bilaterally non distended, soft, nontender no bipedal edema, erythema, warmth no neuro deficits all labs, imaging noted and reviewed ASSESSMENT AND PLAN Acute bilateral pulmonary embolism, with hypoxia Interstitial Lung Disease Risk factor: Sedentary lifestyle, the patient states she has not been moving much due to sciatica and mostly sits at home Rule out hypercoagulable disorder, patient reports her mother had blood clots Heparin drip already started, follow-up factor V Leiden, factor II, homocysteine screening test Will need hematology referral Echocardiogram ordered with severe right-sided heart strain, discussed with bobbin coil winder Dr. Singh, who will reach out to pulmonology service, Dr. Will, consulted for the case Blood pressure stable Continue heparin drip other diagnoses and plan of care as per advanced practitioner's notes Amandeep Dunn MD
[2024-10-09] MEDS: HEPARIN SOD (PORCINE) 1000 UNIT/ML IV ONE (13:54)
[2024-10-09] MEDS: Heparin IV Adult Wt-Based Standard w/ INITIAL Bolus Protocol IV STA (13:54)
[2024-10-09] MEDS: HEPARIN SODIUM/DEXTROSE 25,000 UNITS/500 ML BAG IV SCH (13:54)
--- NOTE | 2024-10-09 15:35 | Pulmonary Consultation ---
Date of Consultation October 09, 2024 Assessment & Plan (1) Multiple pulmonary emboli: (2) Dyspnea: Dyspnea type: shortness of breath Qualified Code(s): R06.02 - Shortness of breath (3) Acute hypoxic respiratory failure: (4) Abnormal echocardiogram: (5) Elevated troponin: (6) Interstitial lung disease: Plan 1. Multiple Pulmonary Emboli: - seen on CTA chest 10/09/24 - continue IV heparin at this time as she appears to be hemodynamically stable - Pulmonary Embolism Severity Index (PESI): Class III, intermediate risk - suggests roughly 3-7% 30-day mortality risk. 2. Dyspnea: - most likely secondary to pulmonary emboli as chest imaging and HPI don't suggest infectious pathology, trauma, or acute exacerbation of chronic lung condition. 3. Acute Hypoxic Respiratory Failure: - continue on 4L NC, consider weaning with improving clinical condition 4. Abnormal Echocardiogram: - findings are consistent with R heart strain, RV is severely enlarged, most likely due to pulmonary vessel obstruction by emboli - LV hyperdynamic, LVEF >70% 5. Elevated Troponin: - downtrendin.2 -> 927.1 6. Interstitial Lung Disease, chronic - RUL nodule: pt follows with Dr. Schafer, [facility] Pathology Secretary at [facility]. Chest CT with contrast performed 05/03/24 noted a new irregularly-shaped RUL nodule measuring approximately 12mm as well as a ISHA nodule measuring 5mm (prev 3mm compared to studies from 2013). Patient underwent PET CT skull base to mid-thigh region on 05/14/24, redemonstrated probable UIP pattern with 6mm RUL nodule vs dense reticulation. - followup Chest CT scheduled for 11/08/24 ____ DVT Prophylaxis: On IV heparin as per above - continue. Code Status: DNR/DNI Disposition: PCU/Tele Supervising Physician Co-Signing Physician Notes Patient seen and examined with resident physician. Agree with note as above unless otherwise specified: Patient denies any significant chest pain or shortness of breath at this present time. She does have exertional dyspnea. Patient with intermediate to high risk pulmonary embolism with evidence of RV dysfunction on echo and elevated troponins. Patient relatively clinically stable with improving heart rate. No role for IR thrombectomy, catheter directed thrombolytics or systemic thrombolytics at this present time. We did discuss the potential role of systemic thrombolytics if she should clinically decompensate rapidly. She does note that she underwent a cortisone injection in her spine about 2 weeks ago which would be a relative contraindication to systemic thrombolytics. No clear provoking factors for pulmonary embolism at this time outside of chronic sedentary lifestyle. Patient is under care of [facility] pulmonary medicine for possible interstitial lung disease and a pulmonary nodule. The CT chest findings today are not consistent with UIP, but difficult to interpret in the acute setting of a pulmonary embolism and without contrast enhanced CT. Would recommend HRCT as an outpatient if not already done. Admitting LUCILLE noted that the patient was being followed for a right upper lobe lung nodule by pulmonary medicine at [facility]. I do not have the old imaging to review, but on the CT chest from admission there is an apical nodularity in the right upper lobe suggestive of scarring. Recommend correlation with previous CT scans and follow-up with her outpatient taper printed circuit layout regarding this. Given the extensive nature of her pulmonary embolism, would recommend anticoagulation for the next 2 to 3 days with heparin and then transitioning to oral anticoagulants as she continues to improve clinically. On exam, she has mild lower lobe crackles with diminishment bibasilarly. No increased work of breathing or significant tachypnea. She is on low-flow oxygen via nasal cannula. No significant lower extremity edema. History of Present Illness Reason for Consultation: pulmonary emboli seen on CTA History of Present Illness Deena is an 79yo female with PMHx hypertension, hyperlipidemia, venous insufficiency, interstitial lung disease, osteoporosis, and osteoarthritis with multiple joint replacements. States she started suddenly feeling SOB with chest tightness and some lightheadedness as she was walking to her bedroom last night 10/08/24. Notes she felt it wasn't an emergency and didn't have particular pain, so she tried to go to bed around 2am. Recalls waking up around 6am today 10/09/24 still having SOB, which she notes was worsening and with more significant chest tightness and lightheadedness when she was walking around her house. Finally decided to come to [facility] ED this morning around 10am after calling her daughter. Denies any prior history of thromboembolism / blood clots, denies known history of cancer, denies cardiovascular disease or heart attacks, denies any known history of disorders affecting coagulation, denies recent prolonged travel or periods of being sedentary, denies any tobacco or alcohol history. Endorses she was hospitalized in May 2024 for 3 days for a blood infection due to complicated UTI, which was consistent with chart history of E. coli bacteremia from 05/31 - 06/03/24 which was successfully treated with IV cefazolin -> PO Bactrim. Denies any other recent illness or hospitalizations. In the ER, pt was satting 85% on room air and was tachycardic to 120. She was given a nonrebreather, which was since been changed to NC 4L/min, satting 86%. HR has come down to 106 but BP still elevated to 140/106. RR has been about 18 on average in ER today. Appears clinically stable at this time. Plan is to admit patient to PCU/Tele for further treatment and evaluation. Allergies Allergy/AdvReac Type Severity Reaction Status Date / Time adhesive AdvReac Unknown BANDAIDS->SKIN Verified 10/09/24 13:38 SORENESS morphine AdvReac Unknown sick in Verified 10/09/24 13:38 stomach, feels funny Home Medications Medication Instructions Recorded Confirmed Type celecoxib 200 mg capsule (Celebrex) 200 mg PO QPM 11/06/19 10/09/24 History cholecalciferol (vitamin D3) 50 2,000 unit PO DAILY 11/06/19 10/09/24 History mcg (2,000 unit) tablet (Vitamin D3) cyanocobalamin (vitamin B-12) 3,000 mcg PO DAILY 11/06/19 10/09/24 History 1,000 mcg tablet (Vitamin B-12) diphenhydramine 25 1 tab PO HS PRN Sleep 11/06/19 10/09/24 History mg-acetaminophen 500 mg tablet (Tylenol PM Extra Strength) glucosamine-chondroitin 250 mg-200 2 tab PO QAM 11/06/19 10/09/24 History mg tablet (Osteo Bi-Flex) hydrochlorothiazide 25 mg tablet 25 mg PO QAM 11/06/19 10/09/24 History omeprazole 20 mg capsule,delayed 20 mg PO BID 11/06/19 10/09/24 History release simvastatin 10 mg tablet 10 mg PO QPM 11/06/19 10/09/24 History ascorbic acid (vitamin C) 250 mg 250 mg PO DAILY 12/12/20 10/09/24 History tablet (Vitamin C) amoxicillin 500 mg tablet 2,000 mg (4 x 500 mg) PO ONCE #4 01/05/24 10/09/24 Rx tabs L.acidop,casei,lactis,rham-B.lact,kalyani 1 cap PO DAILY #30 caps 06/03/24 10/09/24 Rx 625 mg (10 billion cell) capsule (Advanced Probiotic) gabapentin 300 mg capsule 300 mg PO TID #90 caps 07/09/24 10/09/24 Rx aspirin 81 mg tablet,delayed 81 mg PO QAM 10/09/24 10/09/24 History release calcium carbonate (Calcium 500) 1,000 mg PO QAM 10/09/24 10/09/24 History fluticasone propionate 50 2 spray intranasal QAM PRN Nasal 10/09/24 10/09/24 History mcg/actuation nasal Congestion spray,suspension potassium chloride 20 mEq 20 meq PO QAM 10/09/24 10/09/24 History tablet,extended release(part/cryst) (Isac Huang) Patient History Medical History HTN (hypertension) Acid reflux Osteoarthritis Hyperlipidemia Surgical History History of left cataract surgery H/O vein stripping History of colonoscopy History of elbow surgery R & CARPAL TUNNEL SURGERY R HAND (SAME SURGERY) History of foot surgery R (PINS) History of tubal ligation History of cholecystectomy History of total right knee replacement History of total left knee replacement History of total replacement of left shoulder joint History of total right hip replacement Family History Grandfather Family history of esophageal cancer Sister No problems noted. Daughter Family history of diabetes mellitus Social History Smoking Status: Never smoker Second Hand Exposure: No; Do You Dip or Chew Tobacco: No; Hx Alcohol Use: No Hx Substance Use: No Preferred Language: French Communication Ability: Effective Astronautical Engineer Required: No Beliefs That Will Affect Care: None Current Living Situation: Spouse Feels Safe at Home: Yes Safety Concerns: Feels Safe At This Time Assistive Devices: Glasses Review of Systems Review of Systems: denies recent fever, body aches, chills, sweats, cough, headache, lightheadedness, changes in vision, dizziness, neck pain, chest pain, abdominal pain, pain/swelling in extremities. Physical Exam 2 Physical Exam: Constitutional: NC/AT, not appearing in acute distress, A&Ox3 Cardiovascular: tachycardic regular rhythm, +s1/s2, no s3/s4, no murmurs/rubs/gallops heard on auscultation Respiratory: normal breath sounds b/l, good air entry b/l, no wheezes/rales/rhonchi heard on auscultation GI/Abd: +BS, nondistended, nontender to palpation, no guarding MSK: b/l LE no erythema, swelling, warmth, or tenderness to palpation of calves Neuro: no facial droop, speech intact, no focal deficits Results & Data Results & Data Vital Signs (Past 12 Hours) Vital Signs Temp Pulse Resp BP Pulse Ox O2 Del Method O2 Flow Rate 10/09/24 14:36 106 H 22 10/09/24 14:36 140/106 H 10/09/24 14:36 140/106 H 10/09/24 14:33 107 H 10/09/24 14:30 147/101 H 10/09/24 14:18 100 H 17 96 10/09/24 14:15 103 H 16 95 10/09/24 14:14 96 Nasal Cannula 10/09/24 14:06 106 H 19 96 10/09/24 14:00 151/103 H 10/09/24 13:42 105 H 17 96 10/09/24 13:30 139/96 10/09/24 13:30 139/96 10/09/24 13:30 139/96 10/09/24 13:30 102 H 18 96 10/09/24 13:27 105 H 19 96 10/09/24 13:10 140/103 H 10/09/24 12:48 102 H 93 Nasal Cannula 4 10/09/24 12:30 131/91 10/09/24 12:24 108 H 13 95 10/09/24 12:18 104 H 95 10/09/24 12:06 106 H 17 100 10/09/24 12:00 151/104 H 10/09/24 11:54 97 10/09/24 11:51 97 Nasal Cannula 4 10/09/24 11:42 97 10/09/24 11:30 110 H 22 99 10/09/24 11:27 108 H 19 99 10/09/24 11:15 104 H 17 100 10/09/24 11:14 119 H 10/09/24 10:57 Room Air 80 10/09/24 10:44 36.4 C L 120 H 24 129/83 85 L Room Air Laboratory Results Abnormal lab results 10/09/24 10/09/24 10/09/24 Range/Units 11:08 11:55 14:00 WBC 10.98 H (4.8-10.8) K/ul RBC 4.12 L (4.20-5.40) M/uL MCHC 31.9 L (32.0-36.0) g/dL RDW Std Deviation 49.9 H (36.4-46.3) fL RDW Coeff of Alex 14.6 H (11.5-14.5) % Neut # (Auto) 7.22 H (1.40-6.50) K/uL [place] # (Auto) 0.86 H (0.11-0.59) K/uL VBG pCO2 52 H (38-50) mmHg BUN 26 H (6-23) mg/dl BUN/Creatinine Ratio 32.1 H (10-20) Glucose 116 H (70-99(Fasting)) mg/dl Troponin I High Sens 958.2 H* 927.1 H* (0-14) pg/ml B-Natriuretic Peptide 298 H (0-100) pg/ml Diagnostic Findings CTA Chest 10/09/24: FINDINGS: Lungs and pleura: Interstitial thickening is seen. Heart and pericardium: Heart size is normal. No pericardial effusion. There is flattening of the interventricular septum without definite enlargement of the right ventricle. Vessels: Lobar, segmental, and subsegmental pulmonary emboli are seen. Moderate atherosclerotic disease is seen. Mediastinum and gia: A few calcified lymph nodes are seen. Chest wall and lower neck: Unremarkable. Abdomen: Unremarkable. Bones: Unremarkable. IMPRESSION: Extensive pulmonary emboli are seen in the lobar, segmental, and subsegmental branches. There may be mild right heart strain with flattening of the interventricular septum. Bilateral LE Doppler US 10/09/24: FINDINGS: The bilateral common femoral, superficial femoral, popliteal, and visualized calf veins demonstrate normal anechoic lumens with full compressibility. Normal flow is seen on color Doppler images. Expected waveforms were produced with augmentation maneuvers IMPRESSION: No evidence of deep venous thrombosis Echocardiogram 10/09/24: Consistent with Right Ventricle Strain RV significantly enlarged. LVEF >70% Resident Activity Tracking Resident Involvement: Resident Care Provided Care Provided: Adult Hospital Medicine
[2024-10-09] MEDS ORDERED: FLUTICASONE PROPIONATE NA SPR 16 GM BTL PRN (15:47)
[2024-10-09 16:05] LABS: Appearance Urine Clear (Clear); Bilirubin Urine Negative (Negative); Blood Urine Negative (Negative); Color Urine Yellow; Glucose Urine UA Negative (Negative); Ketones Urine Negative (Negative); Leukocyte Esterase Urine Negative (Negative); Nitrite Urine Negative (Negative); Protein Urine Negative (Negative); Specific Gravity Urine 1.039 (1.000-1.030); Urobilinogen Urine Negative (Negative); pH Urine 6.5 (4.5-7.5)
--- NOTE | 2024-10-09 16:14 | Ultrasound Report ---
Clinical History: Pulmonary embolism Technique: Venous ultrasound evaluation was performed utilizing grayscale, color Doppler and wave form evaluation. Images were also obtained with and without compression Findings: The bilateral common femoral, superficial femoral, popliteal, and visualized calf veins demonstrate normal anechoic lumens with full compressibility. Normal flow is seen on color Doppler images. Expected waveforms were produced with augmentation maneuvers Impression: No evidence of deep venous thrombosis Electronically signed by Miguel A Duque 10-09-2024 4:14 PM
[2024-10-09] MEDS ORDERED: MAGNESIUM HYDROXIDE SUSP 30 ML UDC PO PRN (16:30)
[2024-10-09] MEDS ORDERED: ACETAMINOPHEN 325 MG TAB PO PRN (16:30)
[2024-10-09] MEDS ORDERED: POLYETHYLENE (MIRALAX) 17 GM PACK PO PRN (16:30)
[2024-10-09] MEDS ORDERED: ONDANSETRON INJ 2 MG/ML 2 ML VIAL IV PRN (16:30)
--- NOTE | 2024-10-09 17:14 | Billing Data ---
Date of Service October 09, 2024 Coding Level of Care Code 99874 INT INP/OBS CARE
[2024-10-09] MEDS: SIMVASTATIN 10 MG TAB PO SCH (20:27)
[2024-10-09] MEDS: PANTOprazole 40 MG TAB PO SCH (20:27)
[2024-10-09] MEDS: GABAPENTIN 300 MG CAP PO SCH (20:27)
[2024-10-09 21:11] LABS: ANTI-Xa, UFH(UnfractionatedHep 0.84 IU/ml (0.3-0.7)
[2024-10-10 03:58] LABS: ANTI-Xa, UFH(UnfractionatedHep 0.51 IU/ml (0.3-0.7)
[2024-10-10 06:35] LABS: Hematocrit (blood only) 33.5 % (37.0-47.0); Hemoglobin 11.1 g/dl (12.0-16.0); Mean Corpuscular Hemoglobin 30.2 pg (25.0-34.0); Mean Corpuscular Hgb Conc 33.1 g/dL (32.0-36.0); Mean Platelet Volume 10.2 fL (9.4-12.4); Platelet Count 304 K/uL (130-400); RDW Coefficient of Variation 14.6 % (11.5-14.5); RDW Standard Deviation 48.8 fL (36.4-46.3); Red Blood Count 3.68 M/uL (4.20-5.40); White Blood Count 9.95 K/ul (4.8-10.8)
[2024-10-10 06:49] LABS: Albumin Globulin Ratio 1.4 (0.9-2); Albumin Level 3.9 gm/dl (3.4-5.0); BUN Creatinine Ratio 28.6 (10-20); Bilirubin,Total 0.7 mg/dl (0.2-1.0); Calcium 9.5 mg/dl (8.6-10.3); Creatinine Clr Calc Pharmacy 68.4 ml/min; Globulin 2.8 gm/dl (2.5-4.0); Magnesium 1.9 mg/dl (1.7-2.4); Potassium 3.7 mmol/L (3.5-5.1); Total Protein 6.7 gm/dl (6.0-8.3)
[2024-10-10] MEDS: CALCIUM CARBONATE 1250MG TAB PO SCH (08:07)
[2024-10-10] MEDS: CYANOCOBALAMIN (B-12) 500 MCG TABLET PO SCH (08:07)
[2024-10-10] MEDS: CHOLECALCIFEROL 25 MCG (1000 UNITS) TAB PO SCH (08:08)
[2024-10-10] MEDS: ASCORBIC ACID 500 MG TAB PO SCH (08:08)
[2024-10-10] MEDS: ADVANCED PROBIOTIC 625 MG CAPSULE PO SCH (08:09)
[2024-10-10] MEDS: POTASSIUM CHLORIDE CRTAB 20 MEQ TABCR PO SCH (08:14)
[2024-10-10 10:24] LABS: ANTI-Xa, UFH(UnfractionatedHep 0.51 IU/ml (0.3-0.7)
--- NOTE | 2024-10-10 10:26 | Pulmonology Progress Note ---
Date of Service October 10, 2024 Assessment & Plan (1) Multiple pulmonary emboli: (2) Dyspnea: Dyspnea type: shortness of breath Qualified Code(s): R06.02 - Shortness of breath (3) Acute hypoxic respiratory failure: (4) Abnormal echocardiogram: (5) Elevated troponin: (6) Interstitial lung disease: Plan 1. Multiple Pulmonary Emboli: - seen on CTA chest 10/09/24 - clinically improving- continue on IV heparin today 10/10/24, plan to transition to oral anticoagulant tomorrow 10/11/24 - Pulmonary Embolism Severity Index (PESI): Class III, intermediate risk - suggests roughly 3-7% 30-day mortality risk. 2. Dyspnea: - significantly improved, tolerating 2L/min NC well with 99% O2 sat - was most likely secondary to pulmonary emboli as chest imaging and HPI don't suggest infectious pathology, trauma, or acute exacerbation of chronic lung condition. 3. Acute Hypoxic Respiratory Failure: - significantly improved - continue 2L NC, continue weaning with improving clinical condition 4. Abnormal Echocardiogram: - 10/09/24: findings are consistent with R heart strain, RV is severely enlarged, most likely due to pulmonary vessel obstruction by emboli - LV hyperdynamic, LVEF >70% 5. Elevated Troponin: - downtrendin.2 -> 770.4 -> 429.9 6. Interstitial Lung Disease, chronic - RUL nodule: pt follows with Dr. Schafer, [facility] at [facility]. Chest CT with contrast performed 05/03/24 noted a new irregularly-shaped RUL nodule measuring approximately 12mm as well as a ISHA nodule measuring 5mm (prev 3mm compared to studies from 2013). Patient underwent PET CT skull base to mid-thigh region on 05/14/24, redemonstrated probable UIP pattern with 6mm RUL nodule vs dense reticulation. - followup Chest CT scheduled for 11/08/24 ____ DVT Prophylaxis: IV heparin, transition to PO anticoagulants tomorrow 10/11/24; wearing compression stockings Code Status: DNR/DNI Disposition: PCU/Tele Admission and Anticipated Discharge Date Admission Date: October 09, 2024 Supervising Physician Co-Signing Physician Notes Patient seen and examined with the resident physician. Agree with the note as above unless otherwise specified. Patient symptomatically significantly improved and currently saturating well on room air. Some mild dyspnea with exertion. Recommend transitioning to oral anticoagulant starting tomorrow and possible discharge later tomorrow afternoon if no significant desaturations or significant symptomatic dyspnea with exertion. Anticipate she will have some mild degree of dyspnea for the next 6 to 8 weeks as the clot burden results. Recommend repeat echocardiogram in about 8 to 12 weeks. Time to ensure resolution of RV dysfunction. Recommend outpatient follow-up regarding right upper lobe lung nodule with CT chest. Patient notes she has a follow-up in October with a CT chest, but may want to push this back further depending on how the nodule looked on previous imaging. Would defer to her outpatient buttonhole facer. Will continue to follow along with you and anticipate discharge tomorrow as noted previously. Subjective Deena was seen sitting comfortably in chair next to bed. States she is feeling well this morning without any shortness of breath, chest pain, or lightheadedness. Endorses she did not sleep well last night since she is particular about her bed and sleeping position, but was not kept up by SOB or CP. States she has been getting up to walk around room and to bathroom, and had a successful session with physical therapy this AM. Notes she has been eating and drinking well. Urinating without issue but no bowel movements in the past day. Expresses understanding that the plan is to transition her from IV heparin to oral anticoagulants. Understands that her labs indicate improvement and that we are still awaiting blood culture results as well as labs related to coagulation disorders. Review of Systems Review of Systems: denies recent fever, body aches, chills, sweats, cough, headache, lightheadedness, changes in vision, dizziness, neck pain, chest pain, abdominal pain, pain/swelling in extremities. Physical Exam Physical Exam: Constitutional: NC/AT, not appearing in acute distress, A&Ox3 Cardiovascular: tachycardic regular rhythm, +s1/s2, no s3/s4, no murmurs/rubs/ gallops heard on auscultation Respiratory: mild inspiratory crackles L lower lung garcia > R lower lung garcia, good air entry b/l, otherwise no wheezes/rhonchi heard on auscultation GI/Abd: +BS, nondistended, nontender to palpation, no guarding MSK: b/l LE no erythema, swelling, warmth, or tenderness to palpation of calves Neuro: no facial droop, speech intact, no focal deficits, moves all extremities on command Results & Data Results & Data Vital Signs (Past 12 Hours) Vital Signs Temp Pulse Resp BP Pulse Ox O2 Del Method O2 Flow Rate 10/10/24 08:22 36.2 C L 89 18 137/86 99 Nasal Cannula 2 10/10/24 02:42 36.6 C 82 18 110/74 97 Nasal Cannula 10/09/24 22:45 36.7 C 88 18 122/81 95 Nasal Cannula Laboratory Results Abnormal lab results 10/09/24 10/09/24 10/09/24 Range/Units 11:08 11:55 14:00 WBC 10.98 H (4.8-10.8) K/ul RBC 4.12 L (4.20-5.40) M/uL Hgb (12.0-16.0) g/dl Hct (37.0-47.0) % MCHC 31.9 L (32.0-36.0) g/dL RDW Std Deviation 49.9 H (36.4-46.3) fL RDW Coeff of Alex 14.6 H (11.5-14.5) % Neut # (Auto) 7.22 H (1.40-6.50) K/uL [place] # (Auto) 0.86 H (0.11-0.59) K/uL Heparin Anti-Xa, Unfract (0.3-0.7) IU/ml VBG pCO2 52 H (38-50) mmHg BUN 26 H (6-23) mg/dl BUN/Creatinine Ratio 32.1 H (10-20) Glucose 116 H (70-99(Fasting)) mg/dl Troponin I High Sens 958.2 H* 927.1 H* (0-14) pg/ml B-Natriuretic Peptide 298 H (0-100) pg/ml Ur Specific [place] (1.000-1.030) 10/09/24 10/09/24 10/09/24 Range/Units 17:38 20:13 Unknown WBC (4.8-10.8) K/ul RBC (4.20-5.40) M/uL Hgb (12.0-16.0) g/dl Hct (37.0-47.0) % MCHC (32.0-36.0) g/dL RDW Std Deviation (36.4-46.3) fL RDW Coeff of Alex (11.5-14.5) % Neut # (Auto) (1.40-6.50) K/uL [place] # (Auto) (0.11-0.59) K/uL Heparin Anti-Xa, Unfract 0.84 H* (0.3-0.7) IU/ml VBG pCO2 (38-50) mmHg BUN (6-23) mg/dl BUN/Creatinine Ratio (10-20) Glucose (70-99(Fasting)) mg/dl Troponin I High Sens 780.7 H* 770.4 H* (0-14) pg/ml B-Natriuretic Peptide (0-100) pg/ml Ur Specific [place] 1.039 H (1.000-1.030) 10/10/24 10/10/24 10/10/24 Range/Units 03:14 05:34 09:42 WBC (4.8-10.8) K/ul RBC 3.68 L (4.20-5.40) M/uL Hgb 11.1 L (12.0-16.0) g/dl Hct 33.5 L (37.0-47.0) % MCHC (32.0-36.0) g/dL RDW Std Deviation 48.8 H (36.4-46.3) fL RDW Coeff of Alex 14.6 H (11.5-14.5) % Neut # (Auto) (1.40-6.50) K/uL [place] # (Auto) (0.11-0.59) K/uL Heparin Anti-Xa, Unfract (0.3-0.7) IU/ml VBG pCO2 (38-50) mmHg BUN (6-23) mg/dl BUN/Creatinine Ratio 28.6 H (10-20) Glucose 112 H (70-99(Fasting)) mg/dl Troponin I High Sens 516.6 H* D 497.9 H* 429.9 H* (0-14) pg/ml B-Natriuretic Peptide (0-100) pg/ml Ur Specific [place] (1.000-1.030) Resident Activity Tracking Resident Involvement: Resident Care Provided Care Provided: Adult [facility] Medicine
--- NOTE | 2024-10-10 14:50 | Hospitalist Progress Note ---
Date of Service October 10, 2024 Assessment & Plan (1) Multiple pulmonary emboli: Plan: -Chest CTA revealed extensive pulmonary emboli within the lobar, segmental and subsegmental branches. There was also concern for mild right heart strain with flattening of the interventricular septum on the chest C -cause is unclear, could be 2/2 sedentary lifestyle vs. underlying malignancy vs. genetic predisposition -discussed course of disease and next steps with patient Plan: -wean oxygen goal 90% (in setting of likely ILD) -appreciate pulmonary recs, transition to orals on 10/11/2024 -continue heparin -f/u coaguable workup and with hematology outpatient (2) Acute hypoxic respiratory failure: Plan: -in setting of above Plan: -wean oxygen as tolerated -start incentive spirometry, flutter valve -may need home oxygen at discharge (3) Elevated troponin: Plan: -in setting of heart strain from PE (4) Right upper lobe pulmonary nodule: Plan: -Patient follows with Dr. Schafer [[facility]]. Chest CT with contrast performed 05/03/24 noted a new irregularly-shaped RUL nodule measuring approximately 12mm as well as a ISHA nodule measuring 5mm (was previously 3mm compared to imaging studies from 2013). Patient underwent PET CT skull base to mid-thigh region on 05/14/24 which redemonstrated a probable UIP pattern with 6mm RUL nodule vs dense reticulation --> she already has a follow- up repeat chest CT scheduled for 11/08/[address] Schafer per chart review. -could be contributing factor to procoaguable state (5) Interstitial lung disease: Plan: -likely contributer to DVT and to hypoxia currently (6) Hyperlipidemia: Plan: -continue home meds -hold aspirin for now (7) HTN (hypertension): Plan: -continue home meds Plan Deena Jerry is an 79-year-old female with PMHx significant for HLD, HTN, interstitial lung disease, hiatal hernia with GERD, right upper lobe lung nodule, chronic venous insufficiency, generalized osteoarthrosis, age-related osteoporosis, lumbar spinal stenosis and history of E. coli bacteremia [05/2024] who presented to the ED for evaluation on 10/09/24 secondary to SOB and was found to have extensive pulmonary emboli on admitting imaging. She is being admitted for management of the following: Feeding/fluids: regular Analgesia: tylenol Sedation: na Thromboprophylaxis: therapeutic heparin Head up position: na Ulcer prophylaxis: na Glycemic control: na Spontaneous breathing trial: on NC Bowel care: miralax Indwelling catheter removal: none Deescalation of antibiotics: none I spent a total of 55 minutes coordinating, documenting, and providing care for this patient excluding time spent in the performance of separately billed services. Admission and Anticipated Discharge Date Admission Date: October 09, 2024 Subjective Patient seen and examined at bedside. was present and part of co nversation. We discussed the disease process that she currently has which is pulmonary embolism, it is possible course of disease, next steps. Discussed that the goals are to get her off of oxygen, transition her to oral blood thinners, and hopefully get her home without oxygen. Patient was appreciative of the update. patient feels better today. Review of Systems Review of Systems: CONSTITUTIONAL: Patient denies fevers, chills, sweats and weight changes. EYES: Patient denies any visual symptoms. EARS, NOSE, AND THROAT: No difficulties with hearing. No symptoms of rhinitis or sore throat. CARDIOVASCULAR: Patient denies chest pains, palpitations, orthopnea and paroxysmal nocturnal dyspnea. RESPIRATORY: shortness of breath GI: No nausea, vomiting, diarrhea, constipation, abdominal pain, hematochezia or melena. : No urinary hesitancy or dribbling. No nocturia or urinary frequency. No ab normal urethral discharge. MUSCULOSKELETAL: No myalgias or arthralgias. NEUROLOGIC: No chronic headaches, no seizures. Patient denies numbness, tingling or weakness. PSYCHIATRIC: Patient denies problems with mood disturbance. No problems with anxiety. ENDOCRINE: No excessive urination or excessive thirst. DERMATOLOGIC: Patient denies any rashes or skin changes. Physical Exam Physical Exam: Gen: A&O 3 NAD HEENT: NCAT, EOMI, not icteric. External ears normal. No rhinorrhea. Moist mucous membranes. Neck: Supple, full range of motion, no observable masses, No meningeal sign. Lungs: slight RLL rhonchi CV: RRR, no edema. Abdomen: Soft, nondistended, No rebound tenderness. MSK: No joint swelling, no redness. Skin: No rashes, petechiae, lesions. Normal color per patient. Neuro: Normal Gait, Grossly intact. Psych: Appropriate for situation. Results & Data Results & Data Vital Signs (Past 12 Hours) Vital Signs Temp Pulse Resp BP Pulse Ox Pulse Ox Pulse Ox 10/10/24 12:44 99 94 10/10/24 11:54 36.9 C 97 H 19 138/83 96 10/10/24 08:22 36.2 C L 89 18 137/86 99 O2 Del Method O2 Flow Rate O2 Flow Rate O2 Flow Rate 10/10/24 12:44 2.5 2.5 10/10/24 11:54 Room Air 10/10/24 08:22 Nasal Cannula 2 Laboratory Results Laboratory Results WBC 9.95 K/ul (4.8-10.8) 10/10/24 05:34 RBC 3.68 M/uL (4.20-5.40) L 10/10/24 05:34 Hgb 11.1 g/dl (12.0-16.0) L 10/10/24 05:34 Hct 33.5 % (37.0-47.0) L 10/10/24 05:34 MCV 91.0 fL (80.0-100.0) 10/10/24 05:34 MCH 30.2 pg (25.0-34.0) 10/10/24 05:34 MCHC 33.1 g/dL (32.0-36.0) 10/10/24 05:34 RDW Std Deviation 48.8 fL (36.4-46.3) H 10/10/24 05:34 RDW Coeff of Alex 14.6 % (11.5-14.5) H 10/10/24 05:34 Plt Count 304 K/uL (130-400) 10/10/24 05:34 MPV 10.2 fL (9.4-12.4) 10/10/24 05:34 Immature Gran % (Auto) 0.6 % 10/09/24 11:08 Neut % (Auto) 65.8 % 10/09/24 11:08 Lymph % (Auto) 25.0 % 10/09/24 11:08 [place] % (Auto) 7.8 % 10/09/24 11:08 Eos % (Auto) 0.4 % 10/09/24 11:08 Baso % (Auto) 0.4 % 10/09/24 11:08 Neut # (Auto) 7.22 K/uL (1.40-6.50) H 10/09/24 11:08 Lymph # (Auto) 2.75 K/uL (1.20-3.40) 10/09/24 11:08 [place] # (Auto) 0.86 K/uL (0.11-0.59) H 10/09/24 11:08 Eos # (Auto) 0.04 K/uL (0.00-0.50) 10/09/24 11:08 Baso # (Auto) 0.04 K/uL (0.00-0.20) 10/09/24 11:08 Immature Gran # (Auto) 0.07 K/uL (0.01-0.20) 10/09/24 11:08 PT 10.8 Seconds (9.0-12.0) 10/09/24 11:08 INR 1.0 (0.9-1.1) 10/09/24 11:08 Heparin Anti-Xa, Unfract 0.51 IU/ml (0.3-0.7) 10/10/24 09:42 VBG pH 7.38 (7.36-7.41) 10/09/24 11:08 VBG pCO2 52 mmHg (38-50) H 10/09/24 11:08 VBG pO2 34 mmHg 10/09/24 11:08 VBG HCO3 31 mmol/L 10/09/24 11:08 VBG O2 Saturation < 60.0 % 10/09/24 11:08 VBG Base Excess 4.4 mEq/L 10/09/24 11:08 Sodium 139 mmol/L (136-145) 10/10/24 05:34 Potassium 3.7 mmol/L (3.5-5.1) 10/10/24 05:34 Chloride 103 mmol/L (98-107) 10/10/24 05:34 Carbon Dioxide 28 mmol/L (21-32) 10/10/24 05:34 Anion Gap 8 (3-11) 10/10/24 05:34 BUN 20 mg/dl (6-23) 10/10/24 05:34 Creatinine 0.70 mg/dl (0.6-1.2) 10/10/24 05:34 Est Cr Clr Drug Dosing 68.4 ml/min 10/10/24 05:34 eGFR 87.37 10/10/24 05:34 BUN/Creatinine Ratio 28.6 (10-20) H 10/10/24 05:34 Glucose 112 mg/dl (70-99(Fasting)) H 10/10/24 05:34 Lactate 2.0 mmol/L (0.4-2.0) 10/09/24 11:08 Calcium 9.5 mg/dl (8.6-10.3) 10/10/24 05:34 Magnesium 1.9 mg/dl (1.7-2.4) 10/10/24 05:34 Total Bilirubin 0.7 mg/dl (0.2-1.0) 10/10/24 05:34 AST 15 U/L (13-39) 10/10/24 05:34 ALT 9 U/L (7-52) 10/10/24 05:34 Alkaline Phosphatase 67 U/L (34-104) 10/10/24 05:34 Troponin I High Sens 429.9 pg/ml (0-14) H* 10/10/24 09:42 B-Natriuretic Peptide 298 pg/ml (0-100) H 10/09/24 11:08 Total Protein 6.7 gm/dl (6.0-8.3) 10/10/24 05:34 Albumin 3.9 gm/dl (3.4-5.0) 10/10/24 05:34 Globulin 2.8 gm/dl (2.5-4.0) 10/10/24 05:34 Albumin/Globulin Ratio 1.4 (0.9-2) 10/10/24 05:34 Urine Color Yellow 10/09/24 Unknown Urine Appearance Clear (Clear) 10/09/24 Unknown Urine pH 6.5 (4.5-7.5) 10/09/24 Unknown Ur Specific [place] 1.039 (1.000-1.030) H 10/09/24 Unknown Urine Protein Negative (Negative) 10/09/24 Unknown Urine Glucose (UA) Negative (Negative) 10/09/24 Unknown Urine Ketones Negative (Negative) 10/09/24 Unknown Urine Blood Negative (Negative) 10/09/24 Unknown Urine Nitrite Negative (Negative) 10/09/24 Unknown Urine Bilirubin Negative (Negative) 10/09/24 Unknown Urine Urobilinogen Negative (Negative) 10/09/24 Unknown Ur Leukocyte Esterase Negative (Negative) 10/09/24 Unknown Adenovirus (PCR) Not Detected (NotDetected) 10/09/24 11:00 B. pertussis DNA (PCR) Not Detected (NotDetected) 10/09/24 11:00 B.parapertussis DNA PCR Not Detected (NotDetected) 10/09/24 11:00 C. pneumoniae DNA (PCR) Not Detected (NotDetected) 10/09/24 11:00 Coronavirus OC43 (PCR) Not Detected (NotDetected) 10/09/24 11:00 Coronavirus HKU1 (PCR) Not Detected (NotDetected) 10/09/24 11:00 Coronavirus 229E (PCR) Not Detected (NotDetected) 10/09/24 11:00 SARS-CoV-2 (PCR) Not Detected (NotDetected) 10/09/24 11:00 Coronavirus NL63 (PCR) Not Detected (NotDetected) 10/09/24 11:00 Human Metapneumovir PCR Not Detected (NotDetected) 10/09/24 11:00 Influenza Type A (PCR) Not Detected (NotDetected) 10/09/24 11:00 Influenza Type B (PCR) Not Detected (NotDetected) 10/09/24 11:00 M. pneumoniae (PCR) Not Detected (NotDetected) 10/09/24 11:00 Parainfluenza 1 (PCR) Not Detected (NotDetected) 10/09/24 11:00 Parainfluenza 2 (PCR) Not Detected (NotDetected) 10/09/24 11:00 Parainfluenza 3 (PCR) Not Detected (NotDetected) 10/09/24 11:00 Parainfluenza 4 (PCR) Not Detected (NotDetected) 10/09/24 11:00 RSV (PCR) Not Detected (NotDetected) 10/09/24 11:00 Entero/Rhino (PCR) Not Detected (NotDetected) 10/09/24 11:00 Impressions Chest X-Ray 10/09/24 10:55 XR chest 1V portable CLINICAL HISTORY: Dyspnea. COMPARISON STUDY: Chest radiograph May 30, 2024. FINDINGS: Bilateral shoulder arthroplasties are incidentally noted. There is a hiatal hernia. Cardiomegaly is unchanged. There is no pneumothorax or pleural effusion. There is no consolidation to suggest pneumonia. IMPRESSION: No acute cardiopulmonary findings. No change in appearance of the chest. ACT 112: Negative or not required by law. Electronically signed by: César Stevenson M.D. 10/09/2024 11:30 AM Chest CTA 10/09/24 11:33 CT angio chest PE protocol CLINICAL HISTORY: PE TECHNIQUE: Multidetector row helical CT of the chest was performed with angiographic protocol. Coronal and sagittal reformations were obtained. Coronal and sagittal MIPS were obtained from the axial data set and were submitted for review. Automated dose lowering techniques and/or adjustment according to patient size were utilized for this exam. CT DOSE: 860.42 mGy.cm Comparison: Comparison is made to chest radiograph 10/09/2024 FINDINGS: Lungs and pleura: Interstitial thickening is seen. Heart and pericardium: Heart size is normal. No pericardial effusion. There is flattening of the interventricular septum without definite enlargement of the right ventricle. Vessels: Lobar, segmental, and subsegmental pulmonary emboli are seen. Moderate atherosclerotic disease is seen. Mediastinum and gia: A few calcified lymph nodes are seen. Chest wall and lower neck: Unremarkable. Abdomen: Unremarkable. Bones: Unremarkable. IMPRESSION: Extensive pulmonary emboli are seen in the lobar, segmental, and subsegmental branches. There may be mild right heart strain with flattening of the interventricular septum. ACT 112: Negative or not required by law. Electronically signed by: Alfred Peguero M.D. 10/09/2024 1:30 PM Venous Doppler Study 10/09/24 13:51 Clinical History: Pulmonary embolism Technique: Venous ultrasound evaluation was performed utilizing grayscale, color Doppler and wave form evaluation. Images were also obtained with and without compression Findings: The bilateral common femoral, superficial femoral, popliteal, and visualized calf veins demonstrate normal anechoic lumens with full compressibility. Normal flow is seen on color Doppler images. Expected waveforms were produced with augmentation maneuvers Impression: No evidence of deep venous thrombosis Electronically signed by Miguel A Duque 10-09-2024 4:14 PM Medications Administered Ascorbic Acid (Ascorbic Acid 500 Mg Tab) 250 mg PO DAILY MARCELINA Stop: 02/14/25 08:59 Last Admin: 10/10/24 08:08 Dose: 250 mg Documented By: SANJU Calcium Carbonate (Calcium Carbonate 1250mg Tab) 1 tab PO QAM MARCELINA Stop: 11/09/24 08:59 Last Admin: 10/10/24 08:07 Dose: 1 tab Documented By: SANJU Cyanocobalamin (Cyanocobalamin (B-12) 500 Mcg Tablet) 3,000 mcg PO DAILY MARCELINA Stop: 11/09/24 08:59 Last Admin: 10/10/24 08:07 Dose: 3,000 mcg Documented By: SANJU Gabapentin (Gabapentin 300 Mg Cap) 300 mg PO TID MARCELINA Stop: 11/08/24 20:59 Last Admin: 10/10/24 13:03 Dose: 300 mg Documented By: Admin: 10/10/24 08:08 Dose: 300 mg Documented By: Admin: 10/09/24 20:27 Dose: 300 mg Documented By: CINDY Heparin Sodium/Dextrose (Heparin Sodium/Dextrose) 25,000 units in 500 mls @ 22 mls/hr IV .[id number] MARCELINA; Protocol Stop: 11/08/24 13:44 Last Admin: 10/10/24 13:00 Dose: 1,100 units/hr, 22 mls/hr Documented By: SANJU Co-signed By: AM Titration: 10/10/24 12:39 Dose: Infused Documented By: SANJU Co-signed By: AM Titration: 10/10/24 10:49 Dose: 1,100 units/hr, 22 mls/hr Documented By: SANJU Co-signed By: AM Admin: 10/10/24 09:49 Dose: Not Given Documented By: NMMelva Titration: 10/09/24 22:16 Dose: 1,100 units/hr, 22 mls/hr Documented By: FINANCIAL PLANNING ADVISER Co-signed By: SG Titration: 10/09/24 21:15 Dose: 0 units/hr, 0 mls/hr Documented By: FINANCIAL PLANNING ADVISER Co-signed By: KINJAL Admin: 10/09/24 13:54 Dose: 1,250 units/hr, 25 mls/hr Documented By: BCN Co-signed By: ANT Lactobacillus Acidophilus (Advanced Probiotic 625 Mg Capsule) 1,250 mg PO DAILY [facility] Stop: 11/09/24 08:59 Last Admin: 10/10/24 08:09 Dose: 1,250 mg Documented By: SANJU Pantoprazole Sodium (Pantoprazole 40 Mg Tab) 40 mg PO BID MARCELINA Stop: 11/08/24 20:59 Last Admin: 10/10/24 08:09 Dose: 40 mg Documented By: Admin: 10/09/24 20:27 Dose: 40 mg Documented By: CINDY Potassium Chloride (Potassium Chloride Crtab 20 Meq Tabcr) 20 meq PO QAM MARCELINA Stop: 11/09/24 08:59 Last Admin: 10/10/24 08:14 Dose: 20 meq Documented By: SANJU Simvastatin (Simvastatin 10 Mg Tab) 10 mg PO QPM MARCELINA Stop: 11/08/24 20:59 Last Admin: 10/09/24 20:27 Dose: 10 mg Documented By: CINDY Vitamin D (Cholecalciferol 25 Mcg (1000 Units) Tab) 50 mcg PO DAILY MARCELINA Stop: 11/09/24 08:59 Last Admin: 10/10/24 08:08 Dose: 50 mcg Documented By: SANJU (6) Hyperlipidemia Hyperlipidemia type: moderate mixed hyperlipidemia not requiring statin therapy Qualified Code(s): E78.2 - Mixed hyperlipidemia (7) HTN (hypertension) Hypertension type: primary hypertension Qualified Code(s): I10 - Essential (primary) hypertension
--- NOTE | 2024-10-10 15:29 | Billing Data ---
Date of Service October 10, 2024 Coding Level of Care Code 74087 SUB INP/OBS CARE
--- NOTE | 2024-10-10 17:16 | Electrocardiogram Report ---
Test Reason : Blood Pressure : */* mmHG Vent. Rate : 108 BPM Atrial Rate : 108 BPM P-R Int : 186 ms QRS Dur : 126 ms QT Int : 352 ms P-R-T Axes : 43 -18 -9 degrees QTcB Int : 471 ms Sinus tachycardia with Fusion complexes Right bundle branch block Inferior infarct , age undetermined Anterolateral infarct (cited on or before 31-May-2024) Abnormal ECG When compared with ECG of 31-May-2024 17:58, Fusion complexes are now Present Inferior infarct is now Present Questionable change in initial forces of Anterior leads Confirmed by Graham Orona ([id number]) on 10/10/2024 5:16:28 PM Referred By: REFERRED SELF Confirmed By: Graham Orona
[2024-10-10] MEDS: MELATONIN 3 MG TAB PO PRN (20:59)
[2024-10-11 06:46] LABS: Hematocrit (blood only) 32.2 % (37.0-47.0); Hemoglobin 10.9 g/dl (12.0-16.0); Mean Corpuscular Hemoglobin 30.8 pg (25.0-34.0); Mean Corpuscular Hgb Conc 33.9 g/dL (32.0-36.0); Mean Platelet Volume 10.5 fL (9.4-12.4); Platelet Count 285 K/uL (130-400); RDW Coefficient of Variation 14.4 % (11.5-14.5); RDW Standard Deviation 48.3 fL (36.4-46.3); Red Blood Count 3.54 M/uL (4.20-5.40); White Blood Count 9.95 K/ul (4.8-10.8)
[2024-10-11] MEDS: MAGNESIUM SULFATE / D5W 1 GM/100 ML BAG IV ONE (07:10)
[2024-10-11 07:20] LABS: BUN Creatinine Ratio 31.3 (10-20); Calcium 9.4 mg/dl (8.6-10.3); Creatinine Clr Calc Pharmacy 74.8 ml/min; Magnesium 1.9 mg/dl (1.7-2.4)
--- NOTE | 2024-10-11 07:33 | Electrocardiogram Report ---
Test Reason : Blood Pressure : */* mmHG Vent. Rate : 81 BPM Atrial Rate : 81 BPM P-R Int : 164 ms QRS Dur : 144 ms QT Int : 412 ms P-R-T Axes : 64 5 -12 degrees QTcB Int : 478 ms Normal sinus rhythm Right bundle branch block Abnormal ECG When compared with ECG of 09-Oct-2024 10:56, Fusion complexes are no longer Present Criteria for Anterolateral infarct are no longer Present Confirmed by Graham Orona ([id number]) on 10/11/2024 7:33:46 AM Referred By: REFERRED SELF Confirmed By: Graham Orona
[2024-10-11] MEDS: DIGOXIN 250 MCG in SYRINGE 9 ML IV STA (07:34)
--- NOTE | 2024-10-11 07:34 | Electrocardiogram Report ---
Test Reason : Blood Pressure : */* mmHG Vent. Rate : 81 BPM Atrial Rate : 81 BPM P-R Int : 162 ms QRS Dur : 138 ms QT Int : 442 ms P-R-T Axes : 56 -28 -18 degrees QTcB Int : 513 ms Normal sinus rhythm Right bundle branch block Abnormal ECG When compared with ECG of 10-Oct-2024 05:15, No significant change was found Confirmed by Graham Orona ([id number]) on 10/11/2024 7:33:56 AM Referred By: REFERRED SELF Confirmed By: Graham Orona
[2024-10-11] MEDS: POTASSIUM CHLORIDE CRTAB 20 MEQ TABCR PO STA (07:35)
[2024-10-11] MEDS: ALBUMIN 25% 25 GM/100 ML VIAL IV ONE (07:38)
[2024-10-11] MEDS ORDERED: 0.2 MICRON FILTER SET 1 EACH IV ONE (07:42)
[2024-10-11] MEDS: AMIODARONE 150MG / 100ML D5W IV ONE (07:49)
[2024-10-11] MEDS: AMIODARONE / D5W 150 MG/100 ML BAG IV STA (08:03)
[2024-10-11] MEDS: AMIODARONE 360MG / 200ML D5W IV ONE (08:04)
[2024-10-11] MEDS: AMIODARONE / D5W 360 MG/200 ML BAG IV ONE (08:04)
[2024-10-11 08:32] LABS: Chol HDL Ratio 2.7 (0-5)
[2024-10-11 08:48] LABS: Thyroid Stimulating Hormone 3.362 uIu/ml (0.300-4.500)
--- NOTE | 2024-10-11 11:12 | Pulmonology Progress Note ---
Date of Service October 11, 2024 Assessment & Plan (1) Multiple pulmonary emboli: (2) Atrial flutter with rapid ventricular response: (3) Dyspnea: Dyspnea type: shortness of breath Qualified Code(s): R06.02 - Shortness of breath (4) Acute hypoxic respiratory failure: (5) Abnormal echocardiogram: (6) Elevated troponin: (7) Interstitial lung disease: Plan 1. Multiple Pulmonary Emboli: - seen on CTA chest 10/09/24 - clinically improving- continue on IV heparin today 10/11/24, plan to transition to oral anticoagulant tomorrow 10/12/24 - Pulmonary Embolism Severity Index (PESI): Class III, intermediate risk - suggests roughly 3-7% 30-day mortality risk. 2. Atrial Flutter with RVR: - started at 6:50am on 10/11/24, terminated at 7:59am, within 20min after initiation of amiodarone IV 1mg/min - continue amiodarone infusion at 0.5mg/min - started on metoprolol tartrate 12.5mg BID while in hospital, consider metoprolol succinate upon discharge 3. Dyspnea: - significantly improved, tolerating room air with sats in mid-upper 90s - was most likely secondary to pulmonary emboli as chest imaging and HPI don't suggest infectious pathology, trauma, or acute exacerbation of chronic lung condition. 4. Acute Hypoxic Respiratory Failure: - significantly improved, continue on room air as tolerated 5. Abnormal Echocardiogram: - 10/09/24: findings are consistent with R heart strain, RV is severely enlarged, most likely due to pulmonary vessel obstruction by emboli - LV hyperdynamic, LVEF >70% 6. Elevated Troponin: - downtrendin.2 -> 770.4 -> 429.9 7. Interstitial Lung Disease, chronic - RUL nodule: pt follows with Dr. Schafer, [facility]. Chest CT with contrast performed 05/03/24 noted a new irregularly-shaped RUL nodule measuring approximately 12mm as well as a ISHA nodule measuring 5mm (prev 3mm compared to studies from 2013). Patient underwent PET CT skull base to mid-thigh region on 05/14/24, redemonstrated probable UIP pattern with 6mm RUL nodule vs dense reticulation. - followup Chest CT scheduled for 11/08/24 ____ DVT Prophylaxis: IV heparin, plan to transition to PO anticoagulants tomorrow 10/12/24; wearing compression stockings Code Status: DNR/DNI Disposition: PCU/Tele Admission and Anticipated Discharge Date Admission Date: October 09, 2024 Supervising Physician Co-Signing Physician Notes Patient seen examined with the resident. Agree with the note as above unless otherwise specified. Patient had a bout of atrial flutter early this morning and was relatively asymptomatic. Placed on amiodarone and metoprolol by cardiology service. Appreciate their input. Recommend an additional 24-hour hospital stay and reevaluation possible discharge tomorrow on DOAC therapy. Patient has been ambulating without much dyspnea. She is not requiring supplemental oxygen. No further recommendations at this time. Pulmonary team to sign off. Thank you for the consult. Please call questions. Subjective Patient was seen this morning at bedside, appearing in no acute distress, on room air satting mid-upper 90s. Acute events overnight include a run of atrial flutter vs afib from 6:50am to 7:59am this morning 10/11/24. During this time, patient endorses having some shortness of breath, but no chest pain or significant lightheadedness. No nausea/vomiting. Patient was started on amiodarone IV 1mg/min, which converted pt back to NSR within 20min. Otherwise, no acute events overnight and generally feeling well. Denies current SOB or chest pain at rest or with deep inspiration. Endorses she has been eating and drinking well, walking to bathroom without SOB or other issue, had a BM yesterday and urinating without issue. Endorses understanding of plan to switch from IV heparin to oral anticoagulation, and that she may have to continue on oral rate-control medication. Review of Systems Review of Systems: denies recent fever, body aches, chills, sweats, cough, headache, lightheadedness, changes in vision, dizziness, neck pain, chest pain, abdominal pain, pain/swelling in extremities Physical Exam 2 Physical Exam: Constitutional: NC/AT, not appearing in acute distress, A&Ox3 Cardiovascular: regular rate and rhythm, +s1/s2, no s3/s4, no murmurs/rubs/gallops heard on auscultation Respiratory: minimal inspiratory crackles L lower lung garcia > R lower lung garcia, good air entry b/l, otherwise no wheezes/rhonchi heard on auscultation GI/Abd: +BS, nondistended, nontender to palpation, no guarding MSK: b/l LE no erythema, swelling, warmth, or tenderness to palpation of calves Neuro: no facial droop, speech intact, no focal deficits, moves all extremities on command Results & Data Results & Data Vital Signs (Past 12 Hours) Vital Signs Temp Pulse Pulse Resp BP Pulse Ox O2 Del Method 10/11/24 11:02 36.6 C 65 19 133/84 97 Room Air 10/11/24 09:53 Room Air 10/11/24 08:18 36.7 C 85 20 154/77 H 97 Room Air 10/11/24 07:40 160 H 10/11/24 07:34 160 H 10/11/24 07:16 37.0 C 155 H 18 116/76 95 Room Air 10/11/24 06:55 153 H 96/74 L 10/11/24 02:34 36.5 C 72 18 113/72 96 Room Air Resident Activity Tracking Resident Involvement: Resident Care Provided Care Provided: Adult Hospital Medicine
[2024-10-11 11:18] LABS: Estimated Average Glucose 120 mg/dl; Hemoglobin A1C 5.8 % (4.5-5.6)
--- NOTE | 2024-10-11 11:43 | Hospitalist Progress Note ---
Date of Service October 11, 2024 Assessment & Plan (1) Multiple pulmonary emboli: Plan: -Chest CTA revealed extensive pulmonary emboli within the lobar, segmental and subsegmental branches. There was also concern for mild right heart strain with flattening of the interventricular septum on the chest C -cause is unclear, could be 2/2 sedentary lifestyle vs. underlying malignancy vs. genetic predisposition -discussed course of disease and next steps with patient -now c/b atrial fibrillation, off of oxygen Plan: -oxygen goal 90% (in setting of likely ILD) -appreciate pulmonary recs -continue heparin for now, switch -f/u coaguable workup and with hematology outpatient (2) Acute hypoxic respiratory failure: Plan: -in setting of above -resolved currently (3) Paroxysmal atrial fibrillation with rapid ventricular response: Plan: -in setting of RV strain from PE -per collateral from daughter she had concerns for afib for the past few weeks, could be source of clots Plan: -cardiology consult, appreciate recs -continue amiodarone and heparin for now -A1c, lipids for risk stratification (4) Elevated troponin: Plan: -in setting of heart strain from PE (5) Right upper lobe pulmonary nodule: Plan: -Patient follows with Dr. Schafer [[facility] Chest CT with contrast performed 05/03/24 noted a new irregularly-shaped RUL nodule measuring approximately 12mm as well as a ISHA nodule measuring 5mm (was previously 3mm compared to imaging studies from 2013). Patient underwent PET CT skull base to mid-thigh region on 05/14/24 which redemonstrated a probable UIP pattern with 6mm RUL nodule vs dense reticulation --> she already has a follow- up repeat chest CT scheduled for 11/08/[address] Schafer per chart review. -could be contributing factor to procoaguable state (6) Interstitial lung disease: Plan: -likely contributer to DVT and to hypoxia currently (7) Hyperlipidemia: Plan: -continue home meds -hold aspirin for now (8) HTN (hypertension): Plan: -continue home meds Plan Deena Jerry is an 79-year-old female with PMHx significant for HLD, HTN, interstitial lung disease, hiatal hernia with GERD, right upper lobe lung nodule, chronic venous insufficiency, generalized osteoarthrosis, age-related osteoporosis, lumbar spinal stenosis and history of E. coli bacteremia [05/2024] who presented to the ED for evaluation on 10/09/24 secondary to SOB and was found to have extensive pulmonary emboli on admitting imaging. She is being admitted for management of the following: Feeding/fluids: regular Analgesia: tylenol Sedation: na Thromboprophylaxis: therapeutic heparin Head up position: na Ulcer prophylaxis: na Glycemic control: na Spontaneous breathing trial: on NC Bowel care: miralax Indwelling catheter removal: none Deescalation of antibiotics: none I spent a total of 75 minutes coordinating, documenting, and providing care for this patient excluding time spent in the performance of separately billed services. Admission and Anticipated Discharge Date Admission Date: October 09, 2024 Subjective Patient seen and examined at bedside. Called to bedside by nursing in regards to accelerated heart rhythm noted on monitor. At that time EKG was gotten, and cardiology was consulted with EKG, concerning for atrial fibrillation with right bundle branch block and abberancy. At that time amiodarone was started and patient quickly reverted to normal sinus rhythm. Otherwise patient is doing well this morning, feeling better from a shortness of breath perspective and off oxygen. Review of Systems Review of Systems: CONSTITUTIONAL: Patient denies fevers, chills, sweats and weight changes. EYES: Patient denies any visual symptoms. EARS, NOSE, AND THROAT: No difficulties with hearing. No symptoms of rhinitis or sore throat. CARDIOVASCULAR: Patient denies chest pains, palpitations, orthopnea and paroxysmal nocturnal dyspnea. RESPIRATORY: No dyspnea on exertion, no wheezing or cough. GI: No nausea, vomiting, diarrhea, constipation, abdominal pain, hematochezia or melena. : No urinary hesitancy or dribbling. No nocturia or urinary frequency. No abnormal urethral discharge. MUSCULOSKELETAL: No myalgias or arthralgias. NEUROLOGIC: No chronic headaches, no seizures. Patient denies numbness, tingling or weakness. PSYCHIATRIC: Patient denies problems with mood disturbance. No problems with anxiety. ENDOCRINE: No excessive urination or excessive thirst. DERMATOLOGIC: Patient denies any rashes or skin changes. Physical Exam Physical Exam: Gen: A&O 3 NAD HEENT: NCAT, EOMI, not icteric. External ears normal. No rhinorrhea. Moist muco us membranes. Neck: Supple, full range of motion, no observable masses, No meningeal sign. Lungs: slight RLL rhonchi CV: tachycardic, irregular Abdomen: Soft, nondistended, No rebound tenderness. MSK: No joint swelling, no redness. Skin: No rashes, petechiae, lesions. Normal color per patient. Neuro: Normal Gait, Grossly intact. Psych: Appropriate for situation. Results & Data Results & Data Vital Signs (Past 12 Hours) Vital Signs Temp Pulse Pulse Resp BP Pulse Ox O2 Del Method 10/11/24 11:02 36.6 C 65 19 133/84 97 Room Air 10/11/24 09:53 Room Air 10/11/24 08:18 36.7 C 85 20 154/77 H 97 Room Air 10/11/24 07:40 160 H 10/11/24 07:34 160 H 10/11/24 07:16 37.0 C 155 H 18 116/76 95 Room Air 10/11/24 06:55 153 H 96/74 L 10/11/24 02:34 36.5 C 72 18 113/72 96 Room Air Critical Care Time I spent a total of 45 minutes coordinating, documenting, and providing critical care for this patient (as evidenced by amiodarone drip) excluding time spent in the performance of separately billed services. (7) Hyperlipidemia Hyperlipidemia type: moderate mixed hyperlipidemia not requiring statin therapy Qualified Code(s): E78.2 - Mixed hyperlipidemia (8) HTN (hypertension) Hypertension type: primary hypertension Qualified Code(s): I10 - Essential (primary) hypertension
--- NOTE | 2024-10-11 13:15 | Cardiology Consultation ---
Date of Consultation October 11, 2024 Assessment & Plan (1) Atrial flutter with rapid ventricular response: (2) RBBB (right bundle branch block): -Chronic right bundle branch block (3) Multiple pulmonary emboli: Plan 79-year-old female with a history of chronic right bundle branch block presented to the emergency department on 10/09/2024 with progressive severe dyspnea on exertion and was found to have extensive bilateral lobar, segmental, subsegmen alan pulmonary emboli. Right ventricular strain pattern noted on both CT criteria and echocardiogram. Mild elevation in high-sensitivity troponin noted on presentation to the emergency department felt to be due to pulmonary belie with right heart strain. No evidence of lower extremity DVT noted on duplex. Patient with abrupt onset of wide-complex tachycardia consistent with atrial flutter, right bundle branch block this morning at 6:50 AM. Ultimately patient received IV amiodarone and after approximately 20 minutes of therapy, converted back to sinus rhythm at 7:59 AM. She remains in sinus rhythm and is comfortable. Continue heparin. Continue IV amiodarone for now and add low-dose metoprolol succinate with plans to discontinue IV amiodarone in the near future. If recurrence of the atrial flutter takes place. Resume the IV amiodarone as needed. Amiodarone preferred acutely in an effort to avoid hypotension in the setting of right heart strain. Anticipate patient would not tolerate tachycardia or loss of AV synchrony in the setting of RV strain. I spent a total of 65 minutes on the date of service in preparation, delivery, and documentation of the care provided to this patient, excluding any time spent in the performance of separately billed services. History of Present Illness Attending Physician: Yuniel Simmons MD History of Present Illness Deena Jerry is an 79 year old female seen in cardiology consultation per the request of Dr Simmons for the evaluation of atrial flutter with rapid ventricular response. Patient describes that on Tuesday night 10/08/2024 she started experiencing shortness of breath with minimal walking. She had a difficult night that night feeling ill and short of breath the next morning her symptoms persisted and ultimately she presented to the emergency department where she was found to have extensive bilateral pulmonary emboli. Echocardiogram revealed evidence of right heart strain. She had been placed on unfractionated heparin infusion. Her oxygenation has been satisfactory, and her blood pressure has been stable without evidence of hypotension. This morning 10/11/2024 at 6:50 AM telemetry documents onset of a wide-complex tachycardia with rate of just above 150 bpm consistent with atrial flutter with right bundle branch block morphology. IV amiodarone infusion was initiated and after 20 minutes of treatment she converted back to sinus rhythm at 7:59 AM. At the time my assessment she was feeling well. She noted subjective sensation of feeling her heart rate elevated when she was in the tachycardia. She feels that perhaps she has had a similar experience at times at home in the past. She denies any recent surgery other than bilateral eyelid lift that took place in June,. She denies recent travel. Denies orthopedic injury or recent viral illness. 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 She is and lives with her . She was born in [place] and moved to the [facility] in [address] when she was 10 years old FAMILY HISTORY: Father at the age of 72 in 1991 of complex heart disease the details are unknown to the patient but he had to cardiovascular surgeries 1 in [facility] and 1 at [facility]. She does not know if he had coronary heart disease, valvular problems or aorta problems. She states her paternal grandfather also had "heart issues "details unknown Allergies Allergy/AdvReac Type Severity Reaction Status Date / Time adhesive AdvReac Unknown BANDAIDS->SKIN Verified 10/09/24 13:38 SORENESS morphine AdvReac Unknown sick in Verified 10/09/24 13:38 stomach, feels funny Home Medications Medication Instructions Recorded Confirmed Type celecoxib 200 mg capsule (Celebrex) 200 mg PO QPM 11/06/19 10/09/24 History cholecalciferol (vitamin D3) 50 2,000 unit PO DAILY 11/06/19 10/09/24 History mcg (2,000 unit) tablet (Vitamin D3) cyanocobalamin (vitamin B-12) 3,000 mcg PO DAILY 11/06/19 10/09/24 History 1,000 mcg tablet (Vitamin B-12) diphenhydramine 25 1 tab PO HS PRN Sleep 11/06/19 10/09/24 History mg-acetaminophen 500 mg tablet (Tylenol PM Extra Strength) glucosamine-chondroitin 250 mg-200 2 tab PO QAM 11/06/19 10/09/24 History mg tablet (Osteo Bi-Flex) hydrochlorothiazide 25 mg tablet 25 mg PO QAM 11/06/19 10/09/24 History omeprazole 20 mg capsule,delayed 20 mg PO BID 11/06/19 10/09/24 History release simvastatin 10 mg tablet 10 mg PO QPM 11/06/19 10/09/24 History ascorbic acid (vitamin C) 250 mg 250 mg PO DAILY 12/12/20 10/09/24 History tablet (Vitamin C) amoxicillin 500 mg tablet 2,000 mg (4 x 500 mg) PO ONCE #4 01/05/24 10/09/24 Rx tabs L.acidop,casei,lactis,rham-B.lact,kalyani 1 cap PO DAILY #30 caps 06/03/24 10/09/24 Rx 625 mg (10 billion cell) capsule (Advanced Probiotic) gabapentin 300 mg capsule 300 mg PO TID #90 caps 07/09/24 10/09/24 Rx aspirin 81 mg tablet,delayed 81 mg PO QAM 10/09/24 10/09/24 History release calcium carbonate (Calcium 500) 1,000 mg PO QAM 10/09/24 10/09/24 History fluticasone propionate 50 2 spray intranasal QAM PRN Nasal 10/09/24 10/09/24 History mcg/actuation nasal Congestion spray,suspension potassium chloride 20 mEq 20 meq PO QAM 10/09/24 10/09/24 History tablet,extended release(part/cryst) (Klor-Con M) Patient History Medical History Acid reflux Osteoarthritis Surgical History History of left cataract surgery H/O vein stripping History of colonoscopy History of elbow surgery R & CARPAL TUNNEL SURGERY R HAND (SAME SURGERY) History of foot surgery R (PINS) History of tubal ligation History of cholecystectomy History of total right knee replacement History of total left knee replacement History of total replacement of left shoulder joint History of total right hip replacement Family History Grandfather Family history of esophageal cancer Sister No problems noted. Daughter Family history of diabetes mellitus Social History Smoking Status: Never smoker Second Hand Exposure: No; Do You Dip or Chew Tobacco: No; Hx Alcohol Use: No Hx Substance Use: No Preferred Language: Zambian Communication Ability: Effective Clinical Engineering Director Required: No Beliefs That Will Affect Care: None Current Living Situation: Spouse Feels Safe at Home: Yes Assistive Devices: Cane and Walker Review of Systems Review of Systems: All systems reviewed & are unremarkable except as noted in HPI & below Physical Exam Physical Exam: General: no acute distress and stated age Eyes: conjunctiva are pink and non-injected, sclera clear Neck: normal jugular venous pulse, no hepatojugular reflux Chest: normal shape and normal respiratory effort Lungs: clear to auscultation and percussion Cardiac Exam: - regular heart sounds, no murmurs, rubs, or gallops, no jugular venous distention Abdomen: abdomen soft, non-tender, no abnormal masses and no hepatosplenomegaly Musculoskeletal: no gait disturbance, no weakness Extremities: no edema and no cyanosis Neuro:awake, conversant, follows commands, no focal motor deficits Psych: appropriate affect and insight. Results & Data Vital Signs (Past 12 Hours) Vital Signs Temp Pulse Pulse Resp BP Pulse Ox O2 Del Method 10/11/24 11:02 36.6 C 65 19 133/84 97 Room Air 10/11/24 09:53 Room Air 10/11/24 08:18 36.7 C 85 20 154/77 H 97 Room Air 10/11/24 07:40 160 H 10/11/24 07:34 160 H 10/11/24 07:16 37.0 C 155 H 18 116/76 95 Room Air 10/11/24 07:00 76 10/11/24 06:55 153 H 96/74 L 10/11/24 02:34 36.5 C 72 18 113/72 96 Room Air Laboratory Results Lipids 10/11/24 Range/Units 06:11 Triglycerides 82 (0-150) mg/dl Cholesterol 155 (0-200) mg/dl HDL Cholesterol 57 mg/dl Cholesterol/HDL Ratio 2.7 (0-5) CBC 10/11/24 Range/Units 06:11 WBC 9.95 (4.8-10.8) K/ul RBC 3.54 L (4.20-5.40) M/uL Hgb 10.9 L (12.0-16.0) g/dl Hct 32.2 L (37.0-47.0) % Plt Count 285 (130-400) K/uL Comprehensive Metabolic Panel 10/11/24 Range/Units 06:11 Sodium 138 (136-145) mmol/L Potassium 4.0 (3.5-5.1) mmol/L Chloride 103 (98-107) mmol/L Carbon Dioxide 28 (21-32) mmol/L BUN 20 (6-23) mg/dl Creatinine 0.64 (0.6-1.2) mg/dl Glucose 113 H (70-99(Fasting)) mg/dl Calcium 9.4 (8.6-10.3) mg/dl Intake and Output 10/10/24 10/11/24 10/11/24 22:59 06:59 14:59 Intake Total 759.933 / 1076.183 465.067 / 465.067 Balance 759.933 / 1076.183 465.067 / 465.067 Intake: IV 134.933 / 451.183 465.067 / 465.067 Heparin Sodium/Dextrose 25,000 134.933 / 451.183 365.067 / 365.067 units In 500 ml @ 1,100 UNITS/ HR 22 mls/hr IV .[id number] [facility] Rx #:[id number] Magnesium Sulfate / D5w 1 gm In 100 / 100 100 ml @ 50 mls/hr IV ONE ONE Rx#:[id number] Oral 625 / 625 Other: Weight 85.2 kg Diagnostic Findings Summary transthoracic echocardiogram performed on 10/09/24: The study was technically adequate. Findings are consistent with right heart strain. The right ventricle is severely enlarged. There is flattening of the interventricular septum consistent with right ventricular pressure/volume overload. There is diffuse right ventricular hypokinesis with relative sparing of the RV apex (Marshall sign). There is mild to moderate tricuspid regurgitation. The pulmonary systolic pressure is estimated to be 30 mm Hg by Doppler criteria, however given the 2D findings of right ventricular strain, this is most likely an underestimation of the right ventricular systolic pressure and pulmonary artery systolic pressure. The left ventricle is hyperdynamic. Left Ventricular Ejection Fraction = >70 %.
[2024-10-11] MEDS ORDERED: AMIODARONE / D5W 360 MG/200 ML BAG IV SCH (13:57)
[2024-10-11] MEDS: METOPROLOL TARTRATE 25 MG TAB PO ONE (14:10)
--- NOTE | 2024-10-11 15:41 | Billing Data ---
Date of Service October 11, 2024 Coding Level of Care Code 34627 IN/OBS CONSULT LVL 2,35M
[2024-10-11] MEDS: METOPROLOL TARTRATE 25 MG TAB PO SCH (20:25)
--- NOTE | 2024-10-11 21:42 | Electrocardiogram Report ---
Test Reason : Blood Pressure : */* mmHG Vent. Rate : 153 BPM Atrial Rate : * BPM P-R Int : * ms QRS Dur : 134 ms QT Int : 338 ms P-R-T Axes : * -44 -16 degrees QTcB Int : 539 ms Supraventricular tachycardia Premature ventricular complexes Left axis deviation Right bundle branch block Abnormal ECG When compared with ECG of 11-Oct-2024 05:08, Supraventricular tachycardia has replaced Sinus rhythm Vent. rate has increased by 72 bpm Reconfirmed by Graham Orona ([id number]) on 10/12/2024 11:13:19 PM Referred By: REFERRED SELF Confirmed By: Graham Orona
[2024-10-12 06:42] LABS: Hematocrit (blood only) 32.9 % (37.0-47.0); Hemoglobin 10.9 g/dl (12.0-16.0); Mean Corpuscular Hemoglobin 30.7 pg (25.0-34.0); Mean Corpuscular Hgb Conc 33.1 g/dL (32.0-36.0); Mean Corpuscular Volume 92.7 fL (80.0-100.0); Mean Platelet Volume 10.2 fL (9.4-12.4); Platelet Count 269 K/uL (130-400); RDW Coefficient of Variation 14.5 % (11.5-14.5); RDW Standard Deviation 49.1 fL (36.4-46.3); Red Blood Count 3.55 M/uL (4.20-5.40); White Blood Count 9.33 K/ul (4.8-10.8)
[2024-10-12 06:53] LABS: BUN Creatinine Ratio 30.4 (10-20); Calcium 9.4 mg/dl (8.6-10.3); Magnesium 2.1 mg/dl (1.7-2.4); Potassium 4.1 mmol/L (3.5-5.1)
[2024-10-12 07:00] LABS: ANTI-Xa, UFH(UnfractionatedHep 0.45 IU/ml (0.3-0.7)
[2024-10-12] MEDS: POTASSIUM CHLORIDE CRTAB 20 MEQ TABCR PO SCH (08:46)
--- NOTE | 2024-10-12 12:52 | Hospitalist Progress Note ---
Date of Service October 12, 2024 Assessment & Plan (1) Multiple pulmonary emboli: Plan: -Chest CTA revealed extensive pulmonary emboli within the lobar, segmental and subsegmental branches. There was also concern for mild right heart strain with flattening of the interventricular septum on the chest C -cause is unclear, could be 2/2 sedentary lifestyle vs. underlying malignancy vs. genetic predisposition -discussed course of disease and next steps with patient -now c/b atrial fibrillation, off of oxygen Plan: -oxygen goal 90% (in setting of likely ILD) -appreciate pulmonary recs -continue heparin for now, potential switch to PO today -f/u coaguable workup and with hematology outpatient (2) Acute hypoxic respiratory failure: Plan: -in setting of above -resolved currently (3) Paroxysmal atrial fibrillation with rapid ventricular response: Plan: -in setting of RV strain from PE -per collateral from daughter she had concerns for afib for the past few weeks, could be source of clots Plan: -cardiology consult, appreciate recs -continue metoprolol, amiodarine stopped per cards recs -possible transition to eliquis today (4) Elevated troponin: Plan: -in setting of heart strain from PE (5) Right upper lobe pulmonary nodule: Plan: -Patient follows with Dr. 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 Chest CT with contrast performed 05/03/24 noted a new irregularly-shaped RUL nodule measuring approximately 12mm as well as a ISHA nodule measuring 5mm (was previously 3mm compared to imaging studies from 2013). Patient underwent PET CT skull base to mid-thigh region on 05/14/24 which redemonstrated a probable UIP pattern with 6mm RUL nodule vs dense reticulation --> she already has a follow- up repeat chest CT scheduled for 11/08/[address] Schafer per chart review. -could be contributing factor to procoaguable state (6) Interstitial lung disease: Plan: -likely contributer to DVT and to hypoxia currently (7) Hyperlipidemia: Plan: -continue home meds -hold aspirin for now (8) HTN (hypertension): Plan: -continue home meds Plan Feeding/fluids: regular Analgesia: tylenol Sedation: na Thromboprophylaxis: therapeutic heparin Head up position: na Ulcer prophylaxis: na Glycemic control: na Spontaneous breathing trial: on room air Bowel care: miralax Indwelling catheter removal: none Deescalation of antibiotics: none I spent a total of 55 minutes coordinating, documenting, and providing care for this patient excluding time spent in the performance of separately billed services. Admission and Anticipated Discharge Date Admission Date: October 09, 2024 Subjective Patient seen and examined at bedside patient is doing well today. Endorses a little bit of shortness of breath with walking but otherwise doing well. No concerns. Review of Systems Review of Systems: CONSTITUTIONAL: Patient denies fevers, chills, sweats and weight changes. EYES: Patient denies any visual symptoms. EARS, NOSE, AND THROAT: No difficulties with hearing. No symptoms of rhinitis or sore throat. CARDIOVASCULAR: Patient denies chest pains, palpitations, orthopnea and paroxysmal nocturnal dyspnea. RESPIRATORY: dyspnea on exertion GI: No nausea, vomiting, diarrhea, constipation, abdominal pain, hematochezia or melena. : No urinary hesitancy or dribbling. No nocturia or urinary frequency. No abnormal urethral discharge. MUSCULOSKELETAL: No myalgias or arthralgias. NEUROLOGIC: No chronic headaches, no seizures. Patient denies numbness, tingling or weakness. PSYCHIATRIC: Patient denies problems with mood disturbance. No problems with anxiety. ENDOCRINE: No excessive urination or excessive thirst. DERMATOLOGIC: Patient denies any rashes or skin changes. Physical Exam Physical Exam: Gen: A&O 3 NAD HEENT: NCAT, EOMI, not icteric. External ears normal. No rhinorrhea. Moist muco us membranes. Neck: Supple, full range of motion, no observable masses, No meningeal sign. Lungs: slight RLL rhonchi CV: irregular rhythm, regular rate Abdomen: Soft, nondistended, No rebound tenderness. MSK: No joint swelling, no redness. Skin: No rashes, petechiae, lesions. Normal color per patient. Neuro: Normal Gait, Grossly intact. Psych: Appropriate for situation. Results & Data Results & Data Vital Signs (Past 12 Hours) Vital Signs Temp Pulse Pulse Resp BP Pulse Ox O2 Del Method 10/12/24 11:54 36.6 C 68 18 139/71 98 Room Air 10/12/24 08:40 Room Air 10/12/24 07:45 36.3 C L 72 18 134/79 98 Room Air 10/12/24 07:00 65 10/12/24 03:13 36.3 C L 68 18 135/85 96 Room Air Laboratory Results Laboratory Results WBC 9.33 K/ul (4.8-10.8) 10/12/24 06:11 RBC 3.55 M/uL (4.20-5.40) L 10/12/24 06:11 Hgb 10.9 g/dl (12.0-16.0) L 10/12/24 06:11 Hct 32.9 % (37.0-47.0) L 10/12/24 06:11 MCV 92.7 fL (80.0-100.0) 10/12/24 06:11 MCH 30.7 pg (25.0-34.0) 10/12/24 06:11 MCHC 33.1 g/dL (32.0-36.0) 10/12/24 06:11 RDW Std Deviation 49.1 fL (36.4-46.3) H 10/12/24 06:11 RDW Coeff of Alex 14.5 % (11.5-14.5) 10/12/24 06:11 Plt Count 269 K/uL (130-400) 10/12/24 06:11 MPV 10.2 fL (9.4-12.4) 10/12/24 06:11 Immature Gran % (Auto) 0.6 % 10/09/24 11:08 Neut % (Auto) 65.8 % 10/09/24 11:08 Lymph % (Auto) 25.0 % 10/09/24 11:08 [place] % (Auto) 7.8 % 10/09/24 11:08 Eos % (Auto) 0.4 % 10/09/24 11:08 Baso % (Auto) 0.4 % 10/09/24 11:08 Neut # (Auto) 7.22 K/uL (1.40-6.50) H 10/09/24 11:08 Lymph # (Auto) 2.75 K/uL (1.20-3.40) 10/09/24 11:08 [place] # (Auto) 0.86 K/uL (0.11-0.59) H 10/09/24 11:08 Eos # (Auto) 0.04 K/uL (0.00-0.50) 10/09/24 11:08 Baso # (Auto) 0.04 K/uL (0.00-0.20) 10/09/24 11:08 Immature Gran # (Auto) 0.07 K/uL (0.01-0.20) 10/09/24 11:08 PT 10.8 Seconds (9.0-12.0) 10/09/24 11:08 INR 1.0 (0.9-1.1) 10/09/24 11:08 Heparin Anti-Xa, Unfract 0.45 IU/ml (0.3-0.7) 10/12/24 06:11 VBG pH 7.38 (7.36-7.41) 10/09/24 11:08 VBG pCO2 52 mmHg (38-50) H 10/09/24 11:08 VBG pO2 34 mmHg 10/09/24 11:08 VBG HCO3 31 mmol/L 10/09/24 11:08 VBG O2 Saturation < 60.0 % 10/09/24 11:08 VBG Base Excess 4.4 mEq/L 10/09/24 11:08 Sodium 137 mmol/L (136-145) 10/12/24 06:11 Potassium 4.1 mmol/L (3.5-5.1) 10/12/24 06:11 Chloride 103 mmol/L (98-107) 10/12/24 06:11 Carbon Dioxide 27 mmol/L (21-32) 10/12/24 06:11 Anion Gap 7 (3-11) 10/12/24 06:11 BUN 21 mg/dl (6-23) 10/12/24 06:11 Creatinine 0.69 mg/dl (0.6-1.2) 10/12/24 06:11 Est Cr Clr Drug Dosing 69.0 ml/min 10/12/24 06:11 eGFR 87.68 10/12/24 06:11 BUN/Creatinine Ratio 30.4 (10-20) H 10/12/24 06:11 Glucose 109 mg/dl (70-99(Fasting)) H 10/12/24 06:11 Estimat Average Glucose 120 mg/dl 10/11/24 06:11 Hemoglobin A1c 5.8 % (4.5-5.6) H 10/11/24 06:11 Lactate 2.0 mmol/L (0.4-2.0) 10/09/24 11:08 Calcium 9.4 mg/dl (8.6-10.3) 10/12/24 06:11 Magnesium 2.1 mg/dl (1.7-2.4) 10/12/24 06:11 Total Bilirubin 0.7 mg/dl (0.2-1.0) 10/10/24 05:34 AST 15 U/L (13-39) 10/10/24 05:34 ALT 9 U/L (7-52) 10/10/24 05:34 Alkaline Phosphatase 67 U/L (34-104) 10/10/24 05:34 Troponin I High Sens 429.9 pg/ml (0-14) H* 10/10/24 09:42 B-Natriuretic Peptide 298 pg/ml (0-100) H 10/09/24 11:08 Total Protein 6.7 gm/dl (6.0-8.3) 10/10/24 05:34 Albumin 3.9 gm/dl (3.4-5.0) 10/10/24 05:34 Globulin 2.8 gm/dl (2.5-4.0) 10/10/24 05:34 Albumin/Globulin Ratio 1.4 (0.9-2) 10/10/24 05:34 Triglycerides 82 mg/dl (0-150) 10/11/24 06:11 Cholesterol 155 mg/dl (0-200) 10/11/24 06:11 LDL Cholesterol, Calc 82 mg/dl 10/11/24 06:11 VLDL Cholesterol, Calc 16 mg/dl (0-30) 10/11/24 06:11 HDL Cholesterol 57 mg/dl 10/11/24 06:11 Cholesterol/HDL Ratio 2.7 (0-5) 10/11/24 06:11 Homocysteine 10.6 umol/L (<10.4) H 10/10/24 05:34 TSH 3.362 uIu/ml (0.300-4.500) 10/11/24 06:11 Urine Color Yellow 10/09/24 Unknown Urine Appearance Clear (Clear) 10/09/24 Unknown Urine pH 6.5 (4.5-7.5) 10/09/24 Unknown Ur Specific [place] 1.039 (1.000-1.030) H 10/09/24 Unknown Urine Protein Negative (Negative) 10/09/24 Unknown Urine Glucose (UA) Negative (Negative) 10/09/24 Unknown Urine Ketones Negative (Negative) 10/09/24 Unknown Urine Blood Negative (Negative) 10/09/24 Unknown Urine Nitrite Negative (Negative) 10/09/24 Unknown Urine Bilirubin Negative (Negative) 10/09/24 Unknown Urine Urobilinogen Negative (Negative) 10/09/24 Unknown Ur Leukocyte Esterase Negative (Negative) 10/09/24 Unknown Adenovirus (PCR) Not Detected (NotDetected) 10/09/24 11:00 B. pertussis DNA (PCR) Not Detected (NotDetected) 10/09/24 11:00 B.parapertussis DNA PCR Not Detected (NotDetected) 10/09/24 11:00 C. pneumoniae DNA (PCR) Not Detected (NotDetected) 10/09/24 11:00 Coronavirus OC43 (PCR) Not Detected (NotDetected) 10/09/24 11:00 Coronavirus HKU1 (PCR) Not Detected (NotDetected) 10/09/24 11:00 Coronavirus 229E (PCR) Not Detected (NotDetected) 10/09/24 11:00 SARS-CoV-2 (PCR) Not Detected (NotDetected) 10/09/24 11:00 Coronavirus NL63 (PCR) Not Detected (NotDetected) 10/09/24 11:00 Human Metapneumovir PCR Not Detected (NotDetected) 10/09/24 11:00 Influenza Type A (PCR) Not Detected (NotDetected) 10/09/24 11:00 Influenza Type B (PCR) Not Detected (NotDetected) 10/09/24 11:00 M. pneumoniae (PCR) Not Detected (NotDetected) 10/09/24 11:00 Parainfluenza 1 (PCR) Not Detected (NotDetected) 10/09/24 11:00 Parainfluenza 2 (PCR) Not Detected (NotDetected) 10/09/24 11:00 Parainfluenza 3 (PCR) Not Detected (NotDetected) 10/09/24 11:00 Parainfluenza 4 (PCR) Not Detected (NotDetected) 10/09/24 11:00 RSV (PCR) Not Detected (NotDetected) 10/09/24 11:00 Entero/Rhino (PCR) Not Detected (NotDetected) 10/09/24 11:00 Impressions Chest X-Ray 10/09/24 10:55 XR chest 1V portable CLINICAL HISTORY: Dyspnea. COMPARISON STUDY: Chest radiograph May 30, 2024. FINDINGS: Bilateral shoulder arthroplasties are incidentally noted. There is a hiatal hernia. Cardiomegaly is unchanged. There is no pneumothorax or pleural effusion. There is no consolidation to suggest pneumonia. IMPRESSION: No acute cardiopulmonary findings. No change in appearance of the chest. ACT 112: Negative or not required by law. Electronically signed by: César Stevenson M.D. 10/09/2024 11:30 AM Chest CTA 10/09/24 11:33 CT angio chest PE protocol CLINICAL HISTORY: PE TECHNIQUE: Multidetector row helical CT of the chest was performed with angiographic protocol. Coronal and sagittal reformations were obtained. Coronal and sagittal MIPS were obtained from the axial data set and were submitted for review. Automated dose lowering techniques and/or adjustment according to patient size were utilized for this exam. CT DOSE: 860.42 mGy.cm Comparison: Comparison is made to chest radiograph 10/09/2024 FINDINGS: Lungs and pleura: Interstitial thickening is seen. Heart and pericardium: Heart size is normal. No pericardial effusion. There is flattening of the interventricular septum without definite enlargement of the right ventricle. Vessels: Lobar, segmental, and subsegmental pulmonary emboli are seen. Moderate atherosclerotic disease is seen. Mediastinum and gia: A few calcified lymph nodes are seen. Chest wall and lower neck: Unremarkable. Abdomen: Unremarkable. Bones: Unremarkable. IMPRESSION: Extensive pulmonary emboli are seen in the lobar, segmental, and subsegmental branches. There may be mild right heart strain with flattening of the interventricular septum. ACT 112: Negative or not required by law. Electronically signed by: Alfred Peguero M.D. 10/09/2024 1:30 PM Venous Doppler Study 10/09/24 13:51 Clinical History: Pulmonary embolism Technique: Venous ultrasound evaluation was performed utilizing grayscale, color Doppler and wave form evaluation. Images were also obtained with and without compression Findings: The bilateral common femoral, superficial femoral, popliteal, and visualized calf veins demonstrate normal anechoic lumens with full compressibility. Normal flow is seen on color Doppler images. Expected waveforms were produced with augmentation maneuvers Impression: No evidence of deep venous thrombosis Electronically signed by Miguel A Duque 10-09-2024 4:14 PM (7) Hyperlipidemia Hyperlipidemia type: moderate mixed hyperlipidemia not requiring statin therapy Qualified Code(s): E78.2 - Mixed hyperlipidemia (8) HTN (hypertension) Hypertension type: primary hypertension Qualified Code(s): I10 - Essential (primary) hypertension
--- NOTE | 2024-10-12 13:21 | Cardiology Progress Note ---
Date of Service October 12, 2024 Assessment & Plan (1) Atrial flutter with rapid ventricular response: (2) RBBB (right bundle branch block): Plan: -Chronic right bundle branch block (3) Multiple pulmonary emboli: Plan 79-year-old female with a history of chronic right bundle branch block presented to the emergency department on 10/09/2024 with progressive severe dyspnea on exertion and was found to have extensive bilateral lobar, segmental, subsegmental pulmonary emboli. Right ventricular strain pattern noted on both CT criteria and echocardiogram. Mild elevation in high-sensitivity troponin noted on presentation to the emergency department felt to be due to pulmonary emboli with right heart strain. No evidence of lower extremity DVT noted on duplex. Patient with abrupt onset of wide-complex tachycardia consistent with atrial flutter, right bundle branch block this morning at 6:50 AM, 10/11/2024. Ultimately patient received IV amiodarone and after approximately 20 minutes of therapy, converted back to sinus rhythm at 7:59 AM10/11/2024. She remains in sinus rhythm and is comfortable. Amiodarone discontinued afternoon of 10/11/2024 and low-dose metoprolol initiated which will be continued. Change metoprolol to succinate 25 mg daily. Anticoagulation for PE as per the hospitalist service. If recurrence of the atrial flutter takes place. Resume the IV amiodarone as needed. Amiodarone preferred acutely in an effort to avoid hypotension in the setting of right heart strain. Anticipate patient would not tolerate tachycardia or loss of AV synchrony in the setting of RV strain. Cardiology to sign off. Dr Tasneem gtz on weekend. Call with questions or concerns. Admission and Anticipated Discharge Date Admission Date: October 09, 2024 Subjective Patient seen in cardiology follow-up. Denies any complaints. Feeling well from a cardiac perspective without subjective palpitations. Did note shortness of breath with exertion walking in the hallway today. Unfractioned heparin infusion is ongoing. Telemetry reveals sinus rhythm in the 70s with occasional isolated PVCs. No recurrence of atrial flutter. Physical Exam Physical Exam: General: no acute distress and stated age Eyes: conjunctiva are pink and non-injected, sclera clear Neck: normal jugular venous pulse, no hepatojugular reflux Chest: normal shape and normal respiratory effort Lungs: clear to auscultation and percussion Cardiac Exam: - regular heart sounds, no murmurs, rubs, or gallops, no jugular venous distention Abdomen: abdomen soft, non-tender, no abnormal masses and no hepatosplenomegaly Musculoskeletal: no gait disturbance, no weakness Extremities: no edema and no cyanosis Neuro:awake, conversant, follows commands, no focal motor deficits Psych: appropriate affect and insight. Results & Data Vital Signs (Past 12 Hours) Vital Signs Temp Pulse Pulse Resp BP Pulse Ox O2 Del Method 10/12/24 11:54 36.6 C 68 18 139/71 98 Room Air 10/12/24 08:40 Room Air 10/12/24 07:45 36.3 C L 72 18 134/79 98 Room Air 10/12/24 07:00 65 10/12/24 03:13 36.3 C L 68 18 135/85 96 Room Air
[2024-10-12] MEDS: APIXABAN 5 MG TABLET PO SCH (15:16)
--- NOTE | 2024-10-12 23:12 | Electrocardiogram Report ---
Test Reason : Blood Pressure : */* mmHG Vent. Rate : 68 BPM Atrial Rate : 68 BPM P-R Int : 182 ms QRS Dur : 146 ms QT Int : 466 ms P-R-T Axes : 44 -33 -13 degrees QTcB Int : 495 ms Normal sinus rhythm Left axis deviation Right bundle branch block Abnormal ECG When compared with ECG of 11-Oct-2024 06:58, Sinus rhythm has replaced Supraventricular tachycardia Vent. rate has decreased by 85 bpm Confirmed by Graham Orona ([id number]) on 10/12/2024 11:12:29 PM Referred By: REFERRED SELF Confirmed By: Graham Orona
--- NOTE | 2024-10-12 23:14 | Electrocardiogram Report ---
Test Reason : Blood Pressure : */* mmHG Vent. Rate : 75 BPM Atrial Rate : 75 BPM P-R Int : 174 ms QRS Dur : 146 ms QT Int : 476 ms P-R-T Axes : 67 -21 -1 degrees QTcB Int : 531 ms Sinus rhythm with occasional Premature ventricular complexes Right bundle branch block Abnormal ECG When compared with ECG of 11-Oct-2024 17:01, Premature ventricular complexes are now Present Confirmed by Graham Orona ([id number]) on 10/12/2024 11:13:34 PM Referred By: REFERRED SELF Confirmed By: Graham Orona
[2024-10-13 07:12] LABS: Hematocrit (blood only) 35.4 % (37.0-47.0); Hemoglobin 11.5 g/dl (12.0-16.0); Mean Corpuscular Hemoglobin 30.1 pg (25.0-34.0); Mean Corpuscular Hgb Conc 32.5 g/dL (32.0-36.0); Mean Corpuscular Volume 92.7 fL (80.0-100.0); Mean Platelet Volume 9.9 fL (9.4-12.4); Platelet Count 271 K/uL (130-400); RDW Coefficient of Variation 14.7 % (11.5-14.5); RDW Standard Deviation 49.4 fL (36.4-46.3); Red Blood Count 3.82 M/uL (4.20-5.40); White Blood Count 8.72 K/ul (4.8-10.8)
[2024-10-13 07:27] LABS: BUN Creatinine Ratio 31.4 (10-20); Calcium 9.6 mg/dl (8.6-10.3); Creatinine Clr Calc Pharmacy 68.2 ml/min; Potassium 4.1 mmol/L (3.5-5.1)
[2024-10-13 07:40] LABS: ANTI-Xa, UFH(UnfractionatedHep > 1.50 IU/ml (0.3-0.7)
[2024-10-13] MEDS: METOPROLOL SUCC 25MG EXT REL TAB PO SCH (08:48)
--- NOTE | 2024-10-13 11:07 | Hospitalist Progress Note ---
Date of Service October 13, 2024 Assessment & Plan (1) Multiple pulmonary emboli: Plan: -Chest CTA revealed extensive pulmonary emboli within the lobar, segmental and subsegmental branches. There was also concern for mild right heart strain with flattening of the interventricular septum on the chest C -now c/b atrial fibrillation, off of oxygen Plan: -oxygen goal 90% (in setting of likely ILD) -appreciate pulmonary recs -continue eliquis -f/u coaguable workup and with hematology outpatient (2) Acute hypoxic respiratory failure: Plan: -in setting of above -resolved currently (3) Paroxysmal atrial fibrillation with rapid ventricular response: Plan: -in setting of RV strain from PE -per collateral from daughter she had concerns for afib for the past few weeks, could be source of clots -when into RVR today before discharge, discussed with cardiology Plan: -cardiology consult, appreciate recs -continue metoprolol, amiodarine stopped per cards recs -will monitor today, appreciate cardiology recs (4) Elevated troponin: Plan: -in setting of heart strain from PE (5) Right upper lobe pulmonary nodule: Plan: -Patient follows with Dr. Schafer [[facility] [employer]]. Chest CT with contrast performed 05/03/24 noted a new irregularly-shaped RUL nodule measuring approximately 12mm as well as a ISHA nodule measuring 5mm (was previously 3mm compared to imaging studies from 2012). Patient underwent PET CT skull base to mid-thigh region on 05/14/24 which redemonstrated a probable UIP pattern with 6mm RUL nodule vs dense reticulation --> she already has a follow- up repeat chest CT scheduled for 11/08/[address] Schafer per chart review. -could be contributing factor to procoaguable state (6) Interstitial lung disease: Plan: -likely contributer to DVT and to hypoxia currently (7) Hyperlipidemia: Plan: -continue home meds -hold aspirin for now (8) HTN (hypertension): Plan: -continue home meds Plan Feeding/fluids: regular Analgesia: tylenol Sedation: na Thromboprophylaxis: eliquis Head up position: na Ulcer prophylaxis: na Glycemic control: na Spontaneous breathing trial: on room air Bowel care: miralax Indwelling catheter removal: none Deescalation of antibiotics: none I spent a total of 45 minutes coordinating, documenting, and providing care for this patient excluding time spent in the performance of separately billed services. Admission and Anticipated Discharge Date Admission Date: October 09, 2024 Subjective Patient seen and examined at bedside. Initially discussed discharge today but patient went into atrial flutter with RVR for 2 minutes that broke spontaneously. Discussed with webbing supervisor, will monitor today with consideration for discharge tomorrow if no further incidents. Patient feeling well at this time. Review of Systems Review of Systems: CONSTITUTIONAL: Patient denies fevers, chills, sweats and weight changes. EYES: Patient denies any visual symptoms. EARS, NOSE, AND THROAT: No difficulties with hearing. No symptoms of rhinitis or sore throat. CARDIOVASCULAR: Patient denies chest pains, palpitations, orthopnea and paro xysmal nocturnal dyspnea. RESPIRATORY: dyspnea on exertion GI: No nausea, vomiting, diarrhea, constipation, abdominal pain, hematochezia or melena. : No urinary hesitancy or dribbling. No nocturia or urinary frequency. No abnormal urethral discharge. MUSCULOSKELETAL: No myalgias or arthralgias. NEUROLOGIC: No chronic headaches, no seizures. Patient denies numbness, tingling or weakness. PSYCHIATRIC: Patient denies problems with mood disturbance. No problems with anxiety. ENDOCRINE: No excessive urination or excessive thirst. DERMATOLOGIC: Patient denies any rashes or skin changes. Physical Exam Physical Exam: Gen: A&O 3 NAD HEENT: NCAT, EOMI, not icteric. External ears normal. No rhinorrhea. Moist mucous membranes. Neck: Supple, full range of motion, no observable masses, No meningeal sign. Lungs: slight RLL rhonchi CV: irregular rhythm, regular rate Abdomen: Soft, nondistended, No rebound tenderness. MSK: No joint swelling, no redness. Skin: No rashes, petechiae, lesions. Normal color per patient. Neuro: Normal Gait, Grossly intact. Psych: Appropriate for situation. Results & Data Results & Data Vital Signs (Past 12 Hours) Vital Signs Temp Pulse Resp BP Pulse Ox O2 Del Method 10/13/24 10:40 36.6 C 61 18 137/73 97 Room Air 10/13/24 07:44 36.5 C 77 18 129/71 96 Room Air 10/13/24 03:00 36.4 C L 74 14 146/81 H 97 Room Air 10/12/24 23:21 36.6 C 64 18 144/80 H 96 Room Air Laboratory Results Laboratory Results WBC 8.72 K/ul (4.8-10.8) 10/13/24 06:52 RBC 3.82 M/uL (4.20-5.40) L 10/13/24 06:52 Hgb 11.5 g/dl (12.0-16.0) L 10/13/24 06:52 Hct 35.4 % (37.0-47.0) L 10/13/24 06:52 MCV 92.7 fL (80.0-100.0) 10/13/24 06:52 MCH 30.1 pg (25.0-34.0) 10/13/24 06:52 MCHC 32.5 g/dL (32.0-36.0) 10/13/24 06:52 RDW Std Deviation 49.4 fL (36.4-46.3) H 10/13/24 06:52 RDW Coeff of Alex 14.7 % (11.5-14.5) H 10/13/24 06:52 Plt Count 271 K/uL (130-400) 10/13/24 06:52 MPV 9.9 fL (9.4-12.4) 10/13/24 06:52 Immature Gran % (Auto) 0.6 % 10/09/24 11:08 Neut % (Auto) 65.8 % 10/09/24 11:08 Lymph % (Auto) 25.0 % 10/09/24 11:08 Stevens % (Auto) 7.8 % 10/09/24 11:08 Eos % (Auto) 0.4 % 10/09/24 11:08 Baso % (Auto) 0.4 % 10/09/24 11:08 Neut # (Auto) 7.22 K/uL (1.40-6.50) H 10/09/24 11:08 Lymph # (Auto) 2.75 K/uL (1.20-3.40) 10/09/24 11:08 Stevens # (Auto) 0.86 K/uL (0.11-0.59) H 10/09/24 11:08 Eos # (Auto) 0.04 K/uL (0.00-0.50) 10/09/24 11:08 Baso # (Auto) 0.04 K/uL (0.00-0.20) 10/09/24 11:08 Immature Gran # (Auto) 0.07 K/uL (0.01-0.20) 10/09/24 11:08 PT 10.8 Seconds (9.0-12.0) 10/09/24 11:08 INR 1.0 (0.9-1.1) 10/09/24 11:08 Heparin Anti-Xa, Unfract > 1.50 IU/ml (0.3-0.7) H* 10/13/24 06:52 VBG pH 7.38 (7.36-7.41) 10/09/24 11:08 VBG pCO2 52 mmHg (38-50) H 10/09/24 11:08 VBG pO2 34 mmHg 10/09/24 11:08 VBG HCO3 31 mmol/L 10/09/24 11:08 VBG O2 Saturation < 60.0 % 10/09/24 11:08 VBG Base Excess 4.4 mEq/L 10/09/24 11:08 Sodium 136 mmol/L (136-145) 10/13/24 06:52 Potassium 4.1 mmol/L (3.5-5.1) 10/13/24 06:52 Chloride 104 mmol/L (98-107) 10/13/24 06:52 Carbon Dioxide 26 mmol/L (21-32) 10/13/24 06:52 Anion Gap 6 (3-11) 10/13/24 06:52 BUN 22 mg/dl (6-23) 10/13/24 06:52 Creatinine 0.70 mg/dl (0.6-1.2) 10/13/24 06:52 Est Cr Clr Drug Dosing 68.2 ml/min 10/13/24 06:52 eGFR 87.37 10/13/24 06:52 BUN/Creatinine Ratio 31.4 (10-20) H 10/13/24 06:52 Glucose 103 mg/dl (70-99(Fasting)) H 10/13/24 06:52 Estimat Average Glucose 120 mg/dl 10/11/24 06:11 Hemoglobin A1c 5.8 % (4.5-5.6) H 10/11/24 06:11 Lactate 2.0 mmol/L (0.4-2.0) 10/09/24 11:08 Calcium 9.6 mg/dl (8.6-10.3) 10/13/24 06:52 Magnesium 2.0 mg/dl (1.7-2.4) 10/13/24 06:52 Total Bilirubin 0.7 mg/dl (0.2-1.0) 10/10/24 05:34 AST 15 U/L (13-39) 10/10/24 05:34 ALT 9 U/L (7-52) 10/10/24 05:34 Alkaline Phosphatase 67 U/L (34-104) 10/10/24 05:34 Troponin I High Sens 429.9 pg/ml (0-14) H* 10/10/24 09:42 B-Natriuretic Peptide 298 pg/ml (0-100) H 10/09/24 11:08 Total Protein 6.7 gm/dl (6.0-8.3) 10/10/24 05:34 Albumin 3.9 gm/dl (3.4-5.0) 10/10/24 05:34 Globulin 2.8 gm/dl (2.5-4.0) 10/10/24 05:34 Albumin/Globulin Ratio 1.4 (0.9-2) 10/10/24 05:34 Triglycerides 82 mg/dl (0-150) 10/11/24 06:11 Cholesterol 155 mg/dl (0-200) 10/11/24 06:11 LDL Cholesterol, Calc 82 mg/dl 10/11/24 06:11 VLDL Cholesterol, Calc 16 mg/dl (0-30) 10/11/24 06:11 HDL Cholesterol 57 mg/dl 10/11/24 06:11 Cholesterol/HDL Ratio 2.7 (0-5) 10/11/24 06:11 Homocysteine 10.6 umol/L (<10.4) H 10/10/24 05:34 TSH 3.362 uIu/ml (0.300-4.500) 10/11/24 06:11 Urine Color Yellow 10/09/24 Unknown Urine Appearance Clear (Clear) 10/09/24 Unknown Urine pH 6.5 (4.5-7.5) 10/09/24 Unknown Ur Specific [place] 1.039 (1.000-1.030) H 10/09/24 Unknown Urine Protein Negative (Negative) 10/09/24 Unknown Urine Glucose (UA) Negative (Negative) 10/09/24 Unknown Urine Ketones Negative (Negative) 10/09/24 Unknown Urine Blood Negative (Negative) 10/09/24 Unknown Urine Nitrite Negative (Negative) 10/09/24 Unknown Urine Bilirubin Negative (Negative) 10/09/24 Unknown Urine Urobilinogen Negative (Negative) 10/09/24 Unknown Ur Leukocyte Esterase Negative (Negative) 10/09/24 Unknown Adenovirus (PCR) Not Detected (NotDetected) 10/09/24 11:00 B. pertussis DNA (PCR) Not Detected (NotDetected) 10/09/24 11:00 B.parapertussis DNA PCR Not Detected (NotDetected) 10/09/24 11:00 C. pneumoniae DNA (PCR) Not Detected (NotDetected) 10/09/24 11:00 Coronavirus OC43 (PCR) Not Detected (NotDetected) 10/09/24 11:00 Coronavirus HKU1 (PCR) Not Detected (NotDetected) 10/09/24 11:00 Coronavirus 229E (PCR) Not Detected (NotDetected) 10/09/24 11:00 SARS-CoV-2 (PCR) Not Detected (NotDetected) 10/09/24 11:00 Coronavirus NL63 (PCR) Not Detected (NotDetected) 10/09/24 11:00 Human Metapneumovir PCR Not Detected (NotDetected) 10/09/24 11:00 Influenza Type A (PCR) Not Detected (NotDetected) 10/09/24 11:00 Influenza Type B (PCR) Not Detected (NotDetected) 10/09/24 11:00 M. pneumoniae (PCR) Not Detected (NotDetected) 10/09/24 11:00 Parainfluenza 1 (PCR) Not Detected (NotDetected) 10/09/24 11:00 Parainfluenza 2 (PCR) Not Detected (NotDetected) 10/09/24 11:00 Parainfluenza 3 (PCR) Not Detected (NotDetected) 10/09/24 11:00 Parainfluenza 4 (PCR) Not Detected (NotDetected) 10/09/24 11:00 RSV (PCR) Not Detected (NotDetected) 10/09/24 11:00 Entero/Rhino (PCR) Not Detected (NotDetected) 10/09/24 11:00 Impressions Chest X-Ray 10/09/24 10:55 XR chest 1V portable CLINICAL HISTORY: Dyspnea. COMPARISON STUDY: Chest radiograph May 30, 2024. FINDINGS: Bilateral shoulder arthroplasties are incidentally noted. There is a hiatal hernia. Cardiomegaly is unchanged. There is no pneumothorax or pleural effusion. There is no consolidation to suggest pneumonia. IMPRESSION: No acute cardiopulmonary findings. No change in appearance of the chest. ACT 112: Negative or not required by law. Electronically signed by: César Stevenson M.D. 10/09/2024 11:30 AM Chest CTA 10/09/24 11:33 CT angio chest PE protocol CLINICAL HISTORY: PE TECHNIQUE: Multidetector row helical CT of the chest was performed with angiographic protocol. Coronal and sagittal reformations were obtained. Coronal and sagittal MIPS were obtained from the axial data set and were submitted for review. Automated dose lowering techniques and/or adjustment according to patient size were utilized for this exam. CT DOSE: 860.42 mGy.cm Comparison: Comparison is made to chest radiograph 10/09/2024 FINDINGS: Lungs and pleura: Interstitial thickening is seen. Heart and pericardium: Heart size is normal. No pericardial effusion. There is flattening of the interventricular septum without definite enlargement of the right ventricle. Vessels: Lobar, segmental, and subsegmental pulmonary emboli are seen. Moderate atherosclerotic disease is seen. Mediastinum and gia: A few calcified lymph nodes are seen. Chest wall and lower neck: Unremarkable. Abdomen: Unremarkable. Bones: Unremarkable. IMPRESSION: Extensive pulmonary emboli are seen in the lobar, segmental, and subsegmental branches. There may be mild right heart strain with flattening of the interventricular septum. ACT 112: Negative or not required by law. Electronically signed by: Alfred Peguero M.D. 10/09/2024 1:30 PM Venous Doppler Study 10/09/24 13:51 Clinical History: Pulmonary embolism Technique: Venous ultrasound evaluation was performed utilizing grayscale, color Doppler and wave form evaluation. Images were also obtained with and without compression Findings: The bilateral common femoral, superficial femoral, popliteal, and visualized calf veins demonstrate normal anechoic lumens with full compressibility. Normal flow is seen on color Doppler images. Expected waveforms were produced with augmentation maneuvers Impression: No evidence of deep venous thrombosis Electronically signed by Miguel A Duque 10-09-2024 4:14 PM (7) Hyperlipidemia Hyperlipidemia type: moderate mixed hyperlipidemia not requiring statin therapy Qualified Code(s): E78.2 - Mixed hyperlipidemia (8) HTN (hypertension) Hypertension type: primary hypertension Qualified Code(s): I10 - Essential (primary) hypertension
[2024-10-14 08:22] LABS: Hematocrit (blood only) 35.8 % (37.0-47.0); Hemoglobin 11.9 g/dl (12.0-16.0); Mean Corpuscular Hemoglobin 30.7 pg (25.0-34.0); Mean Corpuscular Hgb Conc 33.2 g/dL (32.0-36.0); Mean Corpuscular Volume 92.3 fL (80.0-100.0); Mean Platelet Volume 10.2 fL (9.4-12.4); Platelet Count 298 K/uL (130-400); RDW Coefficient of Variation 14.6 % (11.5-14.5); Red Blood Count 3.88 M/uL (4.20-5.40); White Blood Count 9.52 K/ul (4.8-10.8)
[2024-10-14 08:37] LABS: BUN Creatinine Ratio 34.8 (10-20); Calcium 9.7 mg/dl (8.6-10.3); Creatinine Clr Calc Pharmacy 72.2 ml/min; Potassium 4.1 mmol/L (3.5-5.1)
--- NOTE | 2024-10-14 10:47 | Cardiology Progress Note ---
Date of Service October 14, 2024 Assessment & Plan (1) Atrial flutter with rapid ventricular response: (2) RBBB (right bundle branch block): (3) Multiple pulmonary emboli: Plan 79-year-old female with a history of chronic right bundle branch block presented to the emergency department on 10/09/2024 with progressive severe dyspnea on exertion and was found to have extensive bilateral lobar, segmental, subsegmental pulmonary emboli. Right ventricular strain pattern noted on both CT criteria and echocardiogram. Mild elevation in high-sensitivity troponin noted on presentation to the emergency department felt to be due to pulmonary embolism with right heart strain. No evidence of lower extremity DVT noted on duplex. During admission found to be in atrial fibrillation/flutter, per history, patient may have been in afib for weeks. - today on exam, she is feeling well - had brief episodes of afib where she was symptomatic, remains in sinus rhythm today - will repeat EKG today - continue Eliquis, metoprolol succinate, simvastatin - will add amiodarone PO 200 mg daily for rhythm control - follow up with outpatient cardiology Case discussed with supervising physician, further recommendations per Dr. Boateng. I spent a total of 35 minutes on the date of service in preparation, delivery, and documentation of the care provided to this patient excluding any time spent in the performance of separately billed services. This visit was a split-shared visit with the substantial portion of the decision making performed by the supervising rn gastroenterology/billing provider. Admission and Anticipated Discharge Date Admission Date: October 09, 2024 Supervising Physician Co-Signing Physician Notes I spent a total of 30 minutes on the date of service in preparation, delivery, and documentation of the care provided to this patient, excluding any time spent in the performance of separately billed services. I have personally performed a history and physical examination on the patient. I have reviewed the advance practitioner's documentation, and I agree with, and take responsibility for the plan of care. Subjective Patient seen today in cardiology follow up. Overall feels well from cardiac standpoint. Denies chest pain, palpitations, shortness of breath, edema. Y esterday had 2 minute episode of A-fib and was symptomatic, spontaneously converted to sinus rhythm. Telemetry today with sinus rhythm, controlled heart rates. Review of Systems Review of Systems: CONSTITUTIONAL: No change in weight, No weakness, No fatigue and No fevers, No sweats or chills. PULMONARY: No cough, sputum, or hemoptysis, No wheezing, No shortness of breath and No recent change in breathing. CARDIOVASCULAR: No chest pain, No dyspnea on exertion, No edema, No palpitations and No syncope. GASTROINTESTINAL: No abdominal pain, No change in bowel habits, No significant heartburn, No nausea, No vomiting, No diarrhea, No constipation, No blood in stools or black tarry stools. No dysphagia. HEMATOLOGIC: No abnormal bleeding and No bruising. NEUROLOGICAL: Normal balance, No headaches and No weakness. Physical Exam Physical Exam: General: No acute distress. A+Ox3. HEENT: Normocephalic. Atraumatic. PERRL. EOMI. Conjunctiva and sclera clear. NECK: No carotid bruits. No JVD. Carotid upstrokes are brisk. Heart: RRR. S1 and S2 noted. No murmur. No rubs or gallops. PMI non displaced. Lungs: Clear to auscultation. No wheezes. No rhonchi. No rales. Abdomen: Normal bowel sounds. Soft. Nontender. No masses or organomegaly. No abdominal bruits. Extremities: No edema. No clubbing or cyanosis. Pulses: radial=2/4, posterior tibial=2/4, dorsalis pedis = 2/4. NEURO: No focal deficits. PSYCH: Appropriate affect and insight. Results & Data Vital Signs (Past 12 Hours) Vital Signs Temp Pulse Resp BP BP Pulse Ox O2 Del Method 10/14/24 07:53 36.6 C 76 18 164/97 H 97 Room Air 10/14/24 03:35 36.6 C 69 16 127/77 98 Room Air 10/14/24 01:45 64 16 137/77 95 Room Air Laboratory Results CBC 10/14/24 Range/Units 07:53 WBC 9.52 (4.8-10.8) K/ul RBC 3.88 L (4.20-5.40) M/uL Hgb 11.9 L (12.0-16.0) g/dl Hct 35.8 L (37.0-47.0) % Plt Count 298 (130-400) K/uL Comprehensive Metabolic Panel 10/14/24 Range/Units 07:53 Sodium 136 (136-145) mmol/L Potassium 4.1 (3.5-5.1) mmol/L Chloride 103 (98-107) mmol/L Carbon Dioxide 26 (21-32) mmol/L BUN 23 (6-23) mg/dl Creatinine 0.66 (0.6-1.2) mg/dl Glucose 112 H (70-99(Fasting)) mg/dl Calcium 9.7 (8.6-10.3) mg/dl Intake and Output 10/13/24 10/14/24 10/14/24 22:59 06:59 14:59 Other: # Unmeasured Voids 1 Weight 84.5 kg Weight Measurement Method Built in [facility]
--- NOTE | 2024-10-14 11:13 | Hospitalist Progress Note ---
Date of Service October 14, 2024 Assessment & Plan (1) Multiple pulmonary emboli: Plan: -Chest CTA revealed extensive pulmonary emboli within the lobar, segmental and subsegmental branches. There was also concern for mild right heart strain with flattening of the interventricular septum on the chest C -now c/b atrial fibrillation, off of oxygen Plan: -oxygen goal 90% (in setting of likely ILD) -appreciate pulmonary recs -continue eliquis -f/u coaguable workup and with hematology outpatient (2) Acute hypoxic respiratory failure: Plan: -in setting of above -resolved currently (3) Paroxysmal atrial fibrillation with rapid ventricular response: Plan: -in setting of RV strain from PE -per collateral from daughter she had concerns for afib for the past few weeks, could be source of clots -when into RVR again overnight, discussed with cardiology this morning Plan: -cardiology consult, appreciate recs -continue metoprolol, start amiodarone 200 mg -will monitor today, appreciate cardiology recs (4) Elevated troponin: Plan: -in setting of heart strain from PE (5) Right upper lobe pulmonary nodule: Plan: -Patient follows with Dr. Schafer [[facility] Chest CT with contrast performed 05/03/24 noted a new irregularly-shaped RUL nodule measuring approximately 12mm as well as a ISHA nodule measuring 5mm (was previously 3mm compared to imaging studies from 2012). Patient underwent PET CT skull base to mid-thigh region on 05/14/24 which redemonstrated a probable UIP pattern with 6mm RUL nodule vs dense reticulation --> she already has a follow- up repeat chest CT scheduled for 11/08/[address] Schafer per chart review. -could be contributing factor to procoaguable state (6) Interstitial lung disease: Plan: -likely contribute to DVT (7) Hyperlipidemia: Plan: -continue home meds -hold aspirin for now (8) HTN (hypertension): Plan: -continue home meds Plan Feeding/fluids: regular Analgesia: tylenol Sedation: na Thromboprophylaxis: eliquis Head up position: na Ulcer prophylaxis: na Glycemic control: na Spontaneous breathing trial: on room air Bowel care: miralax Indwelling catheter removal: none Deescalation of antibiotics: none I spent a total of 40 minutes coordinating, documenting, and providing care for this patient excluding time spent in the performance of separately billed services. Admission and Anticipated Discharge Date Admission Date: October 09, 2024 Subjective Patient seen and examined at bedside. Overnight, patient had atrial fibrillation with RVR noted on telemetry. Broke after 1 minute spontaneously. Patient was asymptomatic during episode. Patient doing well otherwise this morning. No shortness of breath. Continues to feel she is improving. Review of Systems Review of Systems: CONSTITUTIONAL: Patient denies fevers, chills, sweats and weight changes. EYES: Patient denies any visual symptoms. EARS, NOSE, AND THROAT: No difficulties with hearing. No symptoms of rhinitis or sore throat. CARDIOVASCULAR: Patient denies chest pains, palpitations, orthopnea and paroxysmal nocturnal dyspnea. RESPIRATORY: dyspnea on exertion GI: No nausea, vomiting, diarrhea, constipation, abdominal pain, hematochezia or melena. : No urinary hesitancy or dribbling. No nocturia or urinary frequency. No abnormal urethral discharge. MUSCULOSKELETAL: No myalgias or arthralgias. NEUROLOGIC: No chronic headaches, no seizures. Patient denies numbness, tingling or weakness. PSYCHIATRIC: Patient denies problems with mood disturbance. No problems with anxiety. ENDOCRINE: No excessive urination or excessive thirst. DERMATOLOGIC: Patient denies any rashes or skin changes. Physical Exam Physical Exam: Gen: A&O 3 NAD HEENT: NCAT, EOMI, not icteric. External ears normal. No rhinorrhea. Moist mucous membranes. Neck: Supple, full range of motion, no observable masses, No meningeal sign. Lungs: slight RLL rhonchi CV: irregular rhythm, regular rate Abdomen: Soft, nondistended, No rebound tenderness. MSK: No joint swelling, no redness. Skin: No rashes, petechiae, lesions. Normal color per patient. Neuro: Normal Gait, Grossly intact. Psych: Appropriate for situation. Results & Data Results & Data Vital Signs (Past 12 Hours) Vital Signs Temp Pulse Pulse Resp BP BP Pulse Ox 10/14/24 11:06 36.7 C 86 18 146/77 H 10/14/24 07:53 36.6 C 76 18 164/97 H 97 10/14/24 07:00 67 10/14/24 03:35 36.6 C 69 16 127/77 98 10/14/24 01:45 64 16 137/77 95 O2 Del Method 10/14/24 11:06 10/14/24 07:53 Room Air 10/14/24 07:00 10/14/24 03:35 Room Air 10/14/24 01:45 Room Air Laboratory Results Laboratory Results WBC 9.52 K/ul (4.8-10.8) 10/14/24 07:53 RBC 3.88 M/uL (4.20-5.40) L 10/14/24 07:53 Hgb 11.9 g/dl (12.0-16.0) L 10/14/24 07:53 Hct 35.8 % (37.0-47.0) L 10/14/24 07:53 MCV 92.3 fL (80.0-100.0) 10/14/24 07:53 MCH 30.7 pg (25.0-34.0) 10/14/24 07:53 MCHC 33.2 g/dL (32.0-36.0) 10/14/24 07:53 RDW Std Deviation 49.0 fL (36.4-46.3) H 10/14/24 07:53 RDW Coeff of Alex 14.6 % (11.5-14.5) H 10/14/24 07:53 Plt Count 298 K/uL (130-400) 10/14/24 07:53 MPV 10.2 fL (9.4-12.4) 10/14/24 07:53 Immature Gran % (Auto) 0.6 % 10/09/24 11:08 Neut % (Auto) 65.8 % 10/09/24 11:08 Lymph % (Auto) 25.0 % 10/09/24 11:08 Hockley % (Auto) 7.8 % 10/09/24 11:08 Eos % (Auto) 0.4 % 10/09/24 11:08 Baso % (Auto) 0.4 % 10/09/24 11:08 Neut # (Auto) 7.22 K/uL (1.40-6.50) H 10/09/24 11:08 Lymph # (Auto) 2.75 K/uL (1.20-3.40) 10/09/24 11:08 [place] # (Auto) 0.86 K/uL (0.11-0.59) H 10/09/24 11:08 Eos # (Auto) 0.04 K/uL (0.00-0.50) 10/09/24 11:08 Baso # (Auto) 0.04 K/uL (0.00-0.20) 10/09/24 11:08 Immature Gran # (Auto) 0.07 K/uL (0.01-0.20) 10/09/24 11:08 PT 10.8 Seconds (9.0-12.0) 10/09/24 11:08 INR 1.0 (0.9-1.1) 10/09/24 11:08 Heparin Anti-Xa, Unfract > 1.50 IU/ml (0.3-0.7) H* 10/13/24 06:52 VBG pH 7.38 (7.36-7.41) 10/09/24 11:08 VBG pCO2 52 mmHg (38-50) H 10/09/24 11:08 VBG pO2 34 mmHg 10/09/24 11:08 VBG HCO3 31 mmol/L 10/09/24 11:08 VBG O2 Saturation < 60.0 % 10/09/24 11:08 VBG Base Excess 4.4 mEq/L 10/09/24 11:08 Sodium 136 mmol/L (136-145) 10/14/24 07:53 Potassium 4.1 mmol/L (3.5-5.1) 10/14/24 07:53 Chloride 103 mmol/L (98-107) 10/14/24 07:53 Carbon Dioxide 26 mmol/L (21-32) 10/14/24 07:53 Anion Gap 7 (3-11) 10/14/24 07:53 BUN 23 mg/dl (6-23) 10/14/24 07:53 Creatinine 0.66 mg/dl (0.6-1.2) 10/14/24 07:53 Est Cr Clr Drug Dosing 72.2 ml/min 10/14/24 07:53 eGFR 88.62 10/14/24 07:53 BUN/Creatinine Ratio 34.8 (10-20) H 10/14/24 07:53 Glucose 112 mg/dl (70-99(Fasting)) H 10/14/24 07:53 Estimat Average Glucose 120 mg/dl 10/11/24 06:11 Hemoglobin A1c 5.8 % (4.5-5.6) H 10/11/24 06:11 Lactate 2.0 mmol/L (0.4-2.0) 10/09/24 11:08 Calcium 9.7 mg/dl (8.6-10.3) 10/14/24 07:53 Magnesium 2.0 mg/dl (1.7-2.4) 10/14/24 07:53 Total Bilirubin 0.7 mg/dl (0.2-1.0) 10/10/24 05:34 AST 15 U/L (13-39) 10/10/24 05:34 ALT 9 U/L (7-52) 10/10/24 05:34 Alkaline Phosphatase 67 U/L (34-104) 10/10/24 05:34 Troponin I High Sens 429.9 pg/ml (0-14) H* 10/10/24 09:42 B-Natriuretic Peptide 298 pg/ml (0-100) H 10/09/24 11:08 Total Protein 6.7 gm/dl (6.0-8.3) 10/10/24 05:34 Albumin 3.9 gm/dl (3.4-5.0) 10/10/24 05:34 Globulin 2.8 gm/dl (2.5-4.0) 10/10/24 05:34 Albumin/Globulin Ratio 1.4 (0.9-2) 10/10/24 05:34 Triglycerides 82 mg/dl (0-150) 10/11/24 06:11 Cholesterol 155 mg/dl (0-200) 10/11/24 06:11 LDL Cholesterol, Calc 82 mg/dl 10/11/24 06:11 VLDL Cholesterol, Calc 16 mg/dl (0-30) 10/11/24 06:11 HDL Cholesterol 57 mg/dl 10/11/24 06:11 Cholesterol/HDL Ratio 2.7 (0-5) 10/11/24 06:11 Homocysteine 10.6 umol/L (<10.4) H 10/10/24 05:34 TSH 3.362 uIu/ml (0.300-4.500) 10/11/24 06:11 Urine Color Yellow 10/09/24 Unknown Urine Appearance Clear (Clear) 10/09/24 Unknown Urine pH 6.5 (4.5-7.5) 10/09/24 Unknown Ur Specific [place] 1.039 (1.000-1.030) H 10/09/24 Unknown Urine Protein Negative (Negative) 10/09/24 Unknown Urine Glucose (UA) Negative (Negative) 10/09/24 Unknown Urine Ketones Negative (Negative) 10/09/24 Unknown Urine Blood Negative (Negative) 10/09/24 Unknown Urine Nitrite Negative (Negative) 10/09/24 Unknown Urine Bilirubin Negative (Negative) 10/09/24 Unknown Urine Urobilinogen Negative (Negative) 10/09/24 Unknown Ur Leukocyte Esterase Negative (Negative) 10/09/24 Unknown Adenovirus (PCR) Not Detected (NotDetected) 10/09/24 11:00 B. pertussis DNA (PCR) Not Detected (NotDetected) 10/09/24 11:00 B.parapertussis DNA PCR Not Detected (NotDetected) 10/09/24 11:00 C. pneumoniae DNA (PCR) Not Detected (NotDetected) 10/09/24 11:00 Coronavirus OC43 (PCR) Not Detected (NotDetected) 10/09/24 11:00 Coronavirus HKU1 (PCR) Not Detected (NotDetected) 10/09/24 11:00 Coronavirus 229E (PCR) Not Detected (NotDetected) 10/09/24 11:00 SARS-CoV-2 (PCR) Not Detected (NotDetected) 10/09/24 11:00 Coronavirus NL63 (PCR) Not Detected (NotDetected) 10/09/24 11:00 Human Metapneumovir PCR Not Detected (NotDetected) 10/09/24 11:00 Influenza Type A (PCR) Not Detected (NotDetected) 10/09/24 11:00 Influenza Type B (PCR) Not Detected (NotDetected) 10/09/24 11:00 M. pneumoniae (PCR) Not Detected (NotDetected) 10/09/24 11:00 Parainfluenza 1 (PCR) Not Detected (NotDetected) 10/09/24 11:00 Parainfluenza 2 (PCR) Not Detected (NotDetected) 10/09/24 11:00 Parainfluenza 3 (PCR) Not Detected (NotDetected) 10/09/24 11:00 Parainfluenza 4 (PCR) Not Detected (NotDetected) 10/09/24 11:00 RSV (PCR) Not Detected (NotDetected) 10/09/24 11:00 Entero/Rhino (PCR) Not Detected (NotDetected) 10/09/24 11:00 Impressions Chest X-Ray 10/09/24 10:55 XR chest 1V portable CLINICAL HISTORY: Dyspnea. COMPARISON STUDY: Chest radiograph May 30, 2024. FINDINGS: Bilateral shoulder arthroplasties are incidentally noted. There is a hiatal hernia. Cardiomegaly is unchanged. There is no pneumothorax or pleural effusion. There is no consolidation to suggest pneumonia. IMPRESSION: No acute cardiopulmonary findings. No change in appearance of the chest. ACT 112: Negative or not required by law. Electronically signed by: César Stevenson M.D. 10/09/2024 11:30 AM Chest CTA 10/09/24 11:33 CT angio chest PE protocol CLINICAL HISTORY: PE TECHNIQUE: Multidetector row helical CT of the chest was performed with angiographic protocol. Coronal and sagittal reformations were obtained. Coronal and sagittal MIPS were obtained from the axial data set and were submitted for review. Automated dose lowering techniques and/or adjustment according to patient size were utilized for this exam. CT DOSE: 860.42 mGy.cm Comparison: Comparison is made to chest radiograph 10/09/2024 FINDINGS: Lungs and pleura: Interstitial thickening is seen. Heart and pericardium: Heart size is normal. No pericardial effusion. There is flattening of the interventricular septum without definite enlargement of the right ventricle. Vessels: Lobar, segmental, and subsegmental pulmonary emboli are seen. Moderate atherosclerotic disease is seen. Mediastinum and gia: A few calcified lymph nodes are seen. Chest wall and lower neck: Unremarkable. Abdomen: Unremarkable. Bones: Unremarkable. IMPRESSION: Extensive pulmonary emboli are seen in the lobar, segmental, and subsegmental branches. There may be mild right heart strain with flattening of the interventricular septum. ACT 112: Negative or not required by law. Electronically signed by: Alfred Peguero M.D. 10/09/2024 1:30 PM Venous Doppler Study 01/14/25 13:51 Clinical History: Pulmonary embolism Technique: Venous ultrasound evaluation was performed utilizing grayscale, color Doppler and wave form evaluation. Images were also obtained with and without compression Findings: The bilateral common femoral, superficial femoral, popliteal, and visualized calf veins demonstrate normal anechoic lumens with full compressibility. Normal flow is seen on color Doppler images. Expected waveforms were produced with augmentation maneuvers Impression: No evidence of deep venous thrombosis Electronically signed by Miguel A Duque 10-09-2024 4:14 PM (7) Hyperlipidemia Hyperlipidemia type: moderate mixed hyperlipidemia not requiring statin therapy Qualified Code(s): E78.2 - Mixed hyperlipidemia (8) HTN (hypertension) Hypertension type: primary hypertension Qualified Code(s): I10 - Essential (primary) hypertension
[2024-10-14] MEDS: AMIODARONE 200 MG TAB PO SCH (11:27)
[2024-10-15 07:03] LABS: Hematocrit (blood only) 35.4 % (37.0-47.0); Hemoglobin 11.7 g/dl (12.0-16.0); Mean Corpuscular Hemoglobin 30.7 pg (25.0-34.0); Mean Corpuscular Hgb Conc 33.1 g/dL (32.0-36.0); Mean Corpuscular Volume 92.9 fL (80.0-100.0); Platelet Count 274 K/uL (130-400); RDW Coefficient of Variation 14.6 % (11.5-14.5); RDW Standard Deviation 49.1 fL (36.4-46.3); Red Blood Count 3.81 M/uL (4.20-5.40); White Blood Count 9.97 K/ul (4.8-10.8)
[2024-10-15 07:23] LABS: Albumin Globulin Ratio 1.5 (0.9-2); Albumin Level 3.8 gm/dl (3.4-5.0); BUN Creatinine Ratio 33.7 (10-20); Bilirubin,Total 0.6 mg/dl (0.2-1.0); Calcium 9.4 mg/dl (8.6-10.3); Creatinine Clr Calc Pharmacy 57.9 ml/min; Globulin 2.6 gm/dl (2.5-4.0); Potassium 4.2 mmol/L (3.5-5.1); Total Protein 6.4 gm/dl (6.0-8.3)
[2024-10-15 08:14] VITALS: RESP 19; TEMP 97.7; O2SAT 95
--- NOTE | 2024-10-15 09:49 | Cardiology Progress Note ---
Date of Service October 15, 2024 Assessment & Plan (1) Atrial flutter with rapid ventricular response: (2) RBBB (right bundle branch block): (3) Multiple pulmonary emboli: Plan 79-year-old female with a history of chronic right bundle branch block presented to the emergency department on 10/09/2024 with progressive severe dyspnea on exertion and was found to have extensive bilateral lobar, segmental, subsegmental pulmonary emboli. Right ventricular strain pattern noted on both CT criteria and echocardiogram. Mild elevation in high-sensitivity troponin noted on presentation to the emergency department felt to be due to pulmonary embolism with right heart strain. No evidence of lower extremity DVT noted on duplex. During admission found to be in atrial fibrillation/flutter, per history, patient may have been in afib for weeks. -Patient maintaining NSR this morning. No recurrent afib in > 24 hours -Amiodarone resumed yesterday at 200 mg daily for brief episode of PAF the night before -Repeat EKG this morning. -Continue Eliquis, metoprolol succinate, amiodarone, statin on discharge -Cardiology f/u to be arranged in 2-4 weeks as outpatient. -Stable from cardiac standpoint for discharge today Case discussed with Dr. Sousa I spent a total of 30 minutes on the date of service in preparation, delivery, and documentation of the care provided to this patient, excluding any time spent in the performance of separately billed services. Fabiola Glass PA-C Department of Cardiology, [facility] This chart was completed in part utilizing Speech Voice Recognition Software. Grammatical errors, random word insertions, pronoun errors, and incomplete sentences are an occasional consequence of this system due to software limitations, ambient noise, and hardware issues. Any formal questions or concerns about the content, text, or information contained within the body of this dictation should be directly addressed to the provider for clarification. Admission and Anticipated Discharge Date Admission Date: October 09, 2024 Supervising Physician Co-Signing Physician Notes Patient was seen and personally examined. This morning. No further atrial fibrillation overnight. EKG sinus rhythm at 68 bpm with right bundle branch block, QT corrected 482 Plan as outlined above. New onset paroxysmal atrial fibrillation incited by acute pulmonary embolus Plan continue amiodarone possible to discontinue after 3 months. Continue chronic anticoagulation indefinitely continue metoprolol succinate Outpatient appointment to be arranged I spent a total of 30 minutes on the date of service in preparation, delivery, and documentation of the care provided to this patient, excluding any time spent in the performance of separately billed services. I have personally performed a history and physical examination on the patient. I have reviewed the advance practitioner's documentation, and I agree with, and take responsibility for the plan of care. Subjective Patient resting in bed feeling well. Ambulating in hallways without dyspnea. No chest pain. No recurrent atrial fibrillation on telemetry. Review of Systems Review of Systems: All systems reviewed & are unremarkable except as noted in HPI & below Physical Exam Physical Exam: General: No acute distress. A+Ox3. HEENT: Normocephalic. Atraumatic. PERRL. EOMI. Conjunctiva and sclera clear. NECK: No carotid bruits. No JVD. Carotid upstrokes are brisk. Heart: RRR. S1 and S2 noted. No murmur. No rubs or gallops. PMI non displaced. Lungs: Clear to auscultation. No wheezes. No rhonchi. No rales. Abdomen: Normal bowel sounds. Soft. Nontender. No masses or organomegaly. No abdominal bruits. Extremities: No edema. No clubbing or cyanosis. Pulses: radial=2/4, posterior tibial=2/4, dorsalis pedis = 2/4. NEURO: No focal deficits. PSYCH: Appropriate affect and insight. Results & Data Vital Signs (Past 12 Hours) Vital Signs Temp Pulse Pulse Resp BP Pulse Ox O2 Del Method 10/15/24 08:13 36.5 C 82 19 145/76 H 95 Room Air 10/15/24 02:57 36.6 C 70 18 130/77 97 Room Air 10/14/24 22:57 75 10/14/24 22:38 36.4 C L 72 16 161/86 H 96 Room Air Laboratory Results Cardiac Enzymes 10/15/24 Range/Units 06:31 AST 11 L (13-39) U/L CBC 10/15/24 Range/Units 06:31 WBC 9.97 (4.8-10.8) K/ul RBC 3.81 L (4.20-5.40) M/uL Hgb 11.7 L (12.0-16.0) g/dl Hct 35.4 L (37.0-47.0) % Plt Count 274 (130-400) K/uL Comprehensive Metabolic Panel 10/15/24 Range/Units 06:31 Sodium 136 (136-145) mmol/L Potassium 4.2 (3.5-5.1) mmol/L Chloride 104 (98-107) mmol/L Carbon Dioxide 28 (21-32) mmol/L BUN 28 H (6-23) mg/dl Creatinine 0.83 (0.6-1.2) mg/dl Glucose 101 H (70-99(Fasting)) mg/dl Calcium 9.4 (8.6-10.3) mg/dl AST 11 L (13-39) U/L ALT 7 (7-52) U/L Alkaline Phosphatase 65 (34-104) U/L Total Protein 6.4 (6.0-8.3) gm/dl Albumin 3.8 (3.4-5.0) gm/dl Intake and Output 10/14/24 10/15/24 10/15/24 22:59 06:59 14:59 Intake Total 300 / 980 Balance 300 / 980 Intake: Oral 300 / 980 Other: # Unmeasured Voids 1 Weight 85.7 kg Weight Measurement Method Built in [facility] Diagnostic Findings Telemetry reviewed: NSR in the 70's. No recurrent atrial fibrillation in the last 24 hours. Repeat EKG from today - ordered/pending Medications Administered Current Inpatient Medications Acetaminophen (Acetaminophen 325 Mg Tab) 650 mg PO Q4H PRN PRN Reason: Pain or Fever Stop: 11/08/24 16:29 Amiodarone HCl (Amiodarone 200 Mg Tab) 200 mg PO QAM [facility] Stop: 11/13/24 10:44 Last Admin: 10/15/24 08:41 Dose: 200 mg Apixaban (Apixaban 5 Mg Tablet) 10 mg PO Q12H [facility] Stop: 10/19/24 03:01 Last Admin: 10/15/24 03:18 Dose: 10 mg Ascorbic Acid (Ascorbic Acid 500 Mg Tab) 250 mg PO DAILY [facility] Stop: 11/09/24 08:59 Last Admin: 10/15/24 08:48 Dose: Not Given Calcium Carbonate (Calcium Carbonate 1250mg Tab) 1 tab PO QAM [facility] Stop: 11/09/24 08:59 Last Admin: 10/15/24 08:48 Dose: Not Given Cyanocobalamin (Cyanocobalamin (B-12) 500 Mcg Tablet) 3,000 mcg PO DAILY [facility] Stop: 11/09/24 08:59 Last Admin: 10/15/24 08:48 Dose: Not Given Fluticasone Propionate (Fluticasone Propionate Na Spr 16 Gm Btl) 2 sprays NA QAM PRN PRN Reason: Nasal Congestion Stop: 11/08/24 15:46 Gabapentin (Gabapentin 300 Mg Cap) 300 mg PO TID [facility] Stop: 11/08/24 20:59 Last Admin: 10/15/24 08:41 Dose: 300 mg Lactobacillus Acidophilus (Advanced Probiotic 625 Mg Capsule) 1,250 mg PO DAILY [facility] Stop: 11/09/24 08:59 Last Admin: 10/15/24 08:49 Dose: Not Given Magnesium Hydroxide (Magnesium Hydroxide Susp 30 Ml Udc) 30 ml PO Q12H PRN PRN Reason: Constipation Stop: 11/08/24 16:29 Melatonin (Melatonin 3 Mg Tab) 3 mg PO HS PRN PRN Reason: Sleep Stop: 11/09/24 20:37 Last Admin: 10/14/24 20:57 Dose: 3 mg Metoprolol Succinate (Metoprolol Succ 25mg Ext Rel Tab) 25 mg PO QAM [facility] Stop: 11/12/24 08:59 Last Admin: 10/15/24 08:41 Dose: 25 mg Miscellaneous Information (Nursing To Pharmacy Communication) 1 each N/A TODAY [facility] Stop: 11/14/24 09:59 Ondansetron HCl (Ondansetron Inj 2 Mg/Ml 2 Ml Vial) 4 mg IV Q6H PRN PRN Reason: Nausea Stop: 11/08/24 16:29 Pantoprazole Sodium (Pantoprazole 40 Mg Tab) 40 mg PO BID [facility] Stop: 11/08/24 20:59 Last Admin: 10/15/24 08:41 Dose: 40 mg Polyethylene Glycol (Polyethylene (Miralax) 17 Gm Pack) 17 gm PO DAILY PRN PRN Reason: Constipation Stop: 11/08/24 16:29 Potassium Chloride (Potassium Chloride Crtab 20 Meq Tabcr) 20 meq PO QAM [facility] Stop: 11/11/24 08:59 Last Admin: 10/15/24 08:49 Dose: Not Given Simvastatin (Simvastatin 10 Mg Tab) 10 mg PO QPM [facility] Stop: 11/08/24 20:59 Last Admin: 10/14/24 20:10 Dose: 10 mg Vitamin D (Cholecalciferol 25 Mcg (1000 Units) Tab) 50 mcg PO DAILY [facility] Stop: 11/09/24 08:59 Last Admin: 10/15/24 08:48 Dose: Not Given
[2024-10-15] MEDS ORDERED: Nursing to Pharmacy Communication SCH (10:00)
--- NOTE | 2024-10-15 11:14 | Discharge Summary ---
Discharge Summary Date of Service October 15, 2024 Principal Dx & Hospital Course #1 = Principal Diagnosis (1) Multiple pulmonary emboli: -Chest CTA revealed extensive pulmonary emboli within the lobar, segmental and subsegmental branches. There was also concern for mild right heart strain with flattening of the interventricular septum on the chest C -now c/b atrial fibrillation, off of oxygen Plan: -continue eliquis -f/u coaguable workup and with hematology outpatient (2) Acute hypoxic respiratory failure: -in setting of above -resolved currently (3) Paroxysmal atrial fibrillation with rapid ventricular response: -in setting of RV strain from PE -per collateral from daughter she had concerns for afib for the past few weeks, could be source of clots -when into RVR again overnight, discussed with cardiology this morning Plan: -cardiology consult, appreciate recs -continue metoprolol, continue amiodarone 200 mg (4) Elevated troponin: -in setting of heart strain from PE (5) Right upper lobe pulmonary nodule: -Patient follows with Dr. Schafer [[facility] Financial Reporting Advisor at [facility]]. Chest CT with contrast performed 05/03/24 noted a new irregularly-shaped RUL nodule measuring approximately 12mm as well as a ISHA nodule measuring 5mm (was previously 3mm compared to imaging studies from 2013). Patient underwent PET CT skull base to mid-thigh region on 05/14/24 which redemonstrated a probable UIP pattern with 6mm RUL nodule vs dense reticulation --> she already has a follow- up repeat chest CT scheduled for 11/08/[address] Schafer per chart review. -could be contributing factor to procoaguable state (6) Interstitial lung disease: -likely contribute to DVT (7) Hyperlipidemia: -continue home meds -hold aspirin for now (8) HTN (hypertension): -continue home meds Notes For Next Care Provider 79-year-old female with past medical history including interstitial lung disease, history of bacteremia, back pathology who presented for shortness of breath. Found to have extensive pulmonary emboli admitted to medicine. On medicine pulmonology was consulted and patient was given course of heparin. Patient had course complicated by atrial flutter with RVR, cardiology consulted, started on beta-baltazar and amiodarone, with improvement in symptoms. Patient monitored to ensure no recurrence. Patient medically stable for discharge at this time. Patient will need follow-up with cardiology and an anticoagulant wi work up outpatient. Medication Changes From Visit -metoprolol, amiodarone, eliquis Admission HPI Per Admitting Provider Deena Jerry is an 79-year-old female with PMHx significant for HLD, HTN, interstitial lung disease, hiatal hernia with GERD, right upper lobe lung nodule, chronic venous insufficiency, generalized osteoarthrosis, age-related osteoporosis, lumbar spinal stenosis and history of E. coli bacteremia [05/2024] who presented to the ED for evaluation on 10/09/24 secondary to SOB. History obtained from the patient, discussion with ED provider and associated chart review. Patient noted to be hypoxic on presentation with O2 sat of 85% on RA. Patient has rebounded well on 4L via NC. She was notably tachycardic on presentation as well. CXR was unremarkable; chest CTA however revealed extensive pulmonary emboli within the lobar, segmental and subsegmental branches. Patient reports that she started to feel short of breath last evening and that it had progressed to the point where she could no longer ambulate more than a few feet before becoming significantly winded starting this morning. She slept very poorly overnight secondary to her SOB. No prior smoking history. No previous history of blood clots and no known history of hypercoagulable disorders. Patient does report that she is rather sedentary at baseline as she has a history of lumbar spinal stenosis as well as generalized osteoarthrosis making ambulation somewhat difficult at times. She denies any recent falls or prior use of assistive ambulatory devices. She denies any recent travels. Patient does recall that her mother had a history of blood clots and "blood clots in her brain." She does not feel SOB on 4L at the time of our conversation in the ED around 12PM. She was experiencing some chest pain with deep breathing overnight however this has since resolved. She is without chest pain at the time of my evaluation. She does not endorse any recent lower extremity swelling however she does have chronic LLE swelling without edema from a previous injury. Discharge Exam Gen: A&O 3 NAD HEENT: NCAT, EOMI, not icteric. External ears normal. No rhinorrhea. Moist mucous membranes. Neck: Supple, full range of motion, no observable masses, No meningeal sign. Lungs: slight RLL rhonchi CV: irregular rhythm, regular rate Abdomen: Soft, nondistended, No rebound tenderness. MSK: No joint swelling, no redness. Skin: No rashes, petechiae, lesions. Normal color per patient. Neuro: Normal Gait, Grossly intact. Psych: Appropriate for situation. Updated Medication List Medication Instructions Recorded Confirmed Type cholecalciferol (vitamin D3) 50 2,000 unit PO DAILY 11/06/19 10/09/24 History mcg (2,000 unit) tablet (Vitamin D3) cyanocobalamin (vitamin B-12) 3,000 mcg PO DAILY 11/06/19 10/09/24 History 1,000 mcg tablet (Vitamin B-12) glucosamine-chondroitin 250 mg-200 2 tab PO QAM 11/06/19 10/09/24 History mg tablet (Osteo Bi-Flex) omeprazole 20 mg capsule,delayed 20 mg PO BID 11/06/19 10/09/24 History release simvastatin 10 mg tablet 10 mg PO QPM 11/06/19 10/09/24 History ascorbic acid (vitamin C) 250 mg 250 mg PO DAILY 12/12/20 10/09/24 History tablet (Vitamin C) L.acidop,casei,lactis,rham-B.lact,kalyani 1 cap PO DAILY #30 caps 06/03/24 10/09/24 Rx 625 mg (10 billion cell) capsule (Advanced Probiotic) gabapentin 300 mg capsule 300 mg PO TID #90 caps 07/09/24 10/09/24 Rx calcium carbonate (Calcium 500) 1,000 mg PO QAM 10/09/24 10/09/24 History fluticasone propionate 50 2 spray intranasal QAM PRN Nasal 10/09/24 10/09/24 History mcg/actuation nasal Congestion spray,suspension potassium chloride 20 mEq 20 meq PO QAM 10/09/24 10/09/24 History tablet,extended release(part/cryst) (Klor-Con M) metoprolol succinate 25 mg 25 mg PO QAM #30 tabs 10/13/24 Rx tablet,extended release 24 hr amiodarone 200 mg tablet 200 mg PO QAM #30 tabs 10/15/24 Rx apixaban 5 mg (74 tabs) tablets in 5 mg PO BID #74 ea 10/15/24 Rx a dose pack (Eliquis) Hospital Stay Data Consultations 10/09/24 13:42 ED Decision to Admit Stat 10/09/24 14:00 Consult Pulmonology Routine 10/11/24 07:26 Consult Cardiology Routine Diagnostic Imagining Performed 10/09/24 11:33 CT angio chest PE protocol Stat 10/09/24 13:51 US venous doppler LE BI Urgent Pending Results Patient Have Any Pending Studies at Discharge: No Discharge Instructions Given to Patient (Per Discharging Provider) 1. Please follow up with your PCP and cardiology. 2. Follow up with physical therapy outpatient Total Time Total Time Spent Total Time Spent (In Minutes): I spent a total of 45 minutes coordinating, documenting, and providing care for this patient excluding time spent in the performance of separately billed services.
--- NOTE | 2024-10-15 11:29 | Electrocardiogram Report ---
Test Reason : Blood Pressure : */* mmHG Vent. Rate : 71 BPM Atrial Rate : 71 BPM P-R Int : 170 ms QRS Dur : 136 ms QT Int : 444 ms P-R-T Axes : 48 -26 -12 degrees QTcB Int : 482 ms Sinus rhythm with occasional Premature ventricular complexes Right bundle branch block T wave abnormality, consider lateral ischemia Abnormal ECG When compared with ECG of 12-Oct-2024 06:49, No significant change was found Confirmed by Roni Alonzo ([id number]) on 10/15/2024 11:29:21 AM Referred By: REFERRED SELF Confirmed By: Roni Alonzo
[2024-10-15] MEDS: APIXABAN 5 MG TABLET PO SCH (11:47)
[2024-10-15 12:07] VITALS: BP 127/77; PULSE 82
--- NOTE | 2024-10-15 15:12 | Electrocardiogram Report ---
Test Reason : Blood Pressure : */* mmHG Vent. Rate : 68 BPM Atrial Rate : 68 BPM P-R Int : 174 ms QRS Dur : 142 ms QT Int : 454 ms P-R-T Axes : 41 -24 -12 degrees QTcB Int : 482 ms Normal sinus rhythm Right bundle branch block Abnormal ECG When compared with ECG of 14-Oct-2024 11:00, (unconfirmed) Premature ventricular complexes are no longer Present Confirmed by Roni Alonzo ([id number]) on 10/15/2024 3:12:06 PM Referred By: REFERRED SELF Confirmed By: Roni Alonzo
[2024-10-17 18:03] LABS: Factor 5 Mutation POSITIVE
== END 2024-10-15 16:22 | disposition home or self-care (01) | DRG 175 ==
LOC: ED 10:26 → SUATTDRO 13:48 → 2E 13:48